=== PATIENT | male | born 1970 ===

== ENCOUNTER 2017-02-20 08:37 | Observation (INO) | payer OTHER ==
--- NOTE | 2017-02-20 08:47 | C.PDOC ---
History Of Present Illness Patient is a 46 y/o M found sleeping near [facility]. Per EMS, patient admitted to heroin and alcohol use. On arrival to ED he is lethargic and unable to provide additional history. Time Seen by Provider: 02/20/17 08:44 Chief Complaint (Nursing): Substance Abuse Past Medical History Vital Signs: Last Vital Signs Temp 98.2 F 02/20/17 15:31 Pulse 88 02/20/17 15:31 Resp 16 02/20/17 15:31 BP 110/70 02/20/17 15:31 Pulse Ox 97 02/20/17 15:31 - Medical History PMH: Depression Denies: HIV, HTN, Chronic Kidney Disease, Seizures, Sexually Transmitted Disease - [facility] Procedures MEDICATION MANAGEMENT (12/13/15) Family History: States: Unknown Family Hx - Social History Hx Tobacco Use: Yes Hx Alcohol Use: Yes Hx Substance Use: Yes (Snorts Heroin) - Immunization History Hx Tetanus Toxoid Vaccination: No Hx Influenza Vaccination: No Hx Pneumococcal Vaccination: No Review Of Systems Review Of Systems: ROS cannot be obtained secondary to pt's inabilty to answer questions. Physical Exam - Physical Exam Appears: No Acute Distress, Unkempt Skin: Normal Color Head: Atraumatic, Normacephalic Eye(s): bilateral: PERRL (sluggish response), EOMI Nose: Normal Neck: Normal ROM Cardiovascular: Rhythm Regular Respiratory: Normal Breath Sounds, No Wheezing, No Plerual Rub Gastrointestinal/Abdominal: Soft, No Tenderness, No Mass, No Distention Extremity: Normal ROM (x4) Neurological/Psych: Other (lethargic, non-verbal) ED Course And Treatment - Laboratory Results Result Diagrams: 02/20/17 09:32 02/20/17 09:32 Medical Decision Making Medical Decision Making: Patient is lethargic and unable to provide additional hx. No signs of trauma but found down ED OBSERVATION Discharge: Yes Date of observation admission: 02/20/17 Time of observation admission: 09:18 - Observation admission statement Patient is being placed in observation because:: altered - Goals of Observation Goals of observation are:: monitoring for sobriety - Progress Note Progress Note: 02/20/17 10:00 FS:84. 02/20/17 12:[address] head shows posterior scalp hematoma and C-spine negative for acute injury. Will continue to monitor 02/20/17 14:00 Resting comfortably 02/20/17 16:40 Patient is now AAox3 and ambulating around the ED. He is requesting methadone for chronic pain. Patient instructed to follow-up with PMD. 02/20/17 18:38 Patient is AAox3. He put on his clothes in ED. He is tolerating po and AAOx3 and ambulating around the ED without issue. Will dc Disposition - Disposition Disposition Time: 16:41 Condition: GOOD - Clinical Impression Clinical Impression: Alcohol intoxication, Drug abuse
[2017-02-20 09:38] LABS: BASO # 0.1 K/uL (0.0-0.2); BASO % 0.8 % (0.0-2.0); EOS # 0.1 K/uL (0.0-0.7); EOS % 1.3 % (0.0-4.0); HEMATOCRIT 39.6 % (35.0-51.0); LYMPH # 1.4 K/uL (1.0-4.3); LYMPH % 23.3 % (20.0-40.0); MEAN CELL VOLUME 94.6 fL (80.0-94.0); MEAN CORPUSCULAR HEMOGLOBIN 31.9 pg (27.0-31.0); MEAN CORPUSCULAR HGB CONC 33.8 g/dL (33.0-37.0); MEAN PLATELET VOLUME 7.6 fL (7.2-11.7); MONO # 0.3 K/uL (0.0-0.8); MONO % 4.3 % (0.0-10.0); NRBC % 0.3 % (0.0-2.0); RED CELL DISTRIBUTION WIDTH 14.5 % (11.5-14.5); WHITE BLOOD COUNT 6.2 K/uL (4.8-10.8)
[2017-02-20 09:43] LABS: CHLORIDE 98 mmol/L (98-107); SODIUM 142 mmol/L (132-148)
[2017-02-20 09:45] LABS: GFR AFRICAN-AMERICAN > 60; POTASSIUM 4.3 mmol/L (3.6-5.2)
[2017-02-20 09:46] LABS: ALB/GLOB RATIO 1.1 (1.0-2.1); ALKALINE PHOSPHATASE 152 U/L (38-126); ALT/SGPT 72 U/L (21-72); AST/SGOT 154 U/L (17-59); BILIRUBIN,TOTAL 0.7 mg/dL (0.2-1.3); BLOOD UREA NITROGEN 8 mg/dL (9-20); CARBON DIOXIDE 24 mmol/L (22-30); GLUCOSE,RANDOM 84 mg/dL (75-110); TOTAL PROTEIN 7.5 g/dL (6.3-8.3)
[2017-02-20 09:47] LABS: CALCIUM 7.9 mg/dl (8.6-10.4)
[2017-02-20 09:57] LABS: INR 1.1
[2017-02-20 10:01] LABS: ALCOHOL SERUM 419 mg/dl (0-10)
[2017-02-20 10:06] LABS: RBC URINE < 1 /hpf (0-3); URINE BILIRUBIN NEGATIVE (NEGATIVE); URINE BLOOD NEGATIVE (NEGATIVE); URINE COLOR Straw (YELLOW); URINE GLUCOSE (UA) NORMAL (Normal); URINE KETONE TRACE mg/dL (NEGATIVE); URINE LEUKOCYTE ESTERASE NEG Leu/uL (Negative); URINE PROTEIN NEGATIVE (NEGATIVE); URINE UROBILINOGEN NORMAL mg/dL (0.2-1.0); WBC URINE < 1 /hpf (0-5)
--- NOTE | 2017-02-20 10:11 | CT ---
CT head without IV contrast History: Head injury Technique: Axial computed tomography images were obtained through the head/brain without intravenous contrast. This CT exam was performed using 1 or more of the falling dose reduction techniques: Automated exposure control, adjustment of the MAA and/or kV according to patient size, and/or use of iterative reconstruction technique. Radiation dose: Total exam DLP = 909.80 MGy-cm. Comparison: None available. Findings: Mild streak artifact obscures evaluation of the skullbase. The ventricles, sulci, and cisterns appear within normal limits. Intracranial atherosclerotic calcifications. No intracranial masses or hemorrhages are identified. The nagy-white matter differentiation appears intact. Please note that MRI with diffusion imaging is more sensitive in the detection of acute ischemic event. Visualized paranasal sinuses, mastoid air cells, and both orbits appear unremarkable. Soft tissue swelling/small scalp hematoma left posterior scalp. Impression: No acute intracranial pathology identified. Soft tissue swelling/small scalp hematoma left posterior scalp.
--- NOTE | 2017-02-20 10:31 | CT ---
CT cervical spine without IV contrast Indication: Altered Comparison: None available Technique: Axial computed tomography images were obtained of the cervical spine without the use of intravenous contrast. Coronal and sagittal reformatted images were created and reviewed. This CT exam was performed using 1 or more of the falling dose reduction techniques: Automated exposure control, adjustment of the MAA and/or kV according to patient size, and/or use of iterative reconstruction technique. Radiation dose: Total exam DLP = 586.80 mGy-cm. Findings: Straightening of the normal cervical lordosis may be related to muscle spasm or positioning. There is no evidence of acute fracture or subluxation. There is preserved alignment, vertebral body height, intervertebral disc spaces. The prevertebral soft tissues and spinolaminar lines appear intact. The lateral masses are preserved. The dens tip is intact. There is proper alignment of the lateral masses of C1 with the C2 vertebral body. Included portions of the thyroid gland appear unremarkable. Included portions of lung apices appear clear. Impression: Straightening of the normal cervical lordosis may be related to muscle spasm or positioning. No evidence of acute fracture or subluxation.
[2017-02-20 15:32] VITALS: RESP 16; O2SAT 97
[2017-02-20 18:52] VITALS: BP 109/71; PULSE 78; TEMP 97.6
== END 2017-02-20 16:41 | disposition home or self-care (01) ==
LOC: C.ER 08:37 → C.9OBSV 09:18
PROVIDERS: ADMIT Emergency Medicine; ATTEND Emergency Medicine
DX: F11.10 Opioid abuse, uncomplicated (principal); F10.120 Alcohol abuse with intoxication, uncomplicated; Y90.8 Blood alcohol level of 240 mg/100 ml or more; F17.210 Nicotine dependence, cigarettes, uncomplicated; F32.9 Major depressive disorder, single episode, unspecified
CPT/HCPCS: 36415; 70450; 72125; 80053; 80320; 80324; 80345; 80346; 80349; 80353; 80358; 80361; 81001; 82948; 83992; 85025; 85610; 85730; 86850; 86900; 99285; G0378

== ENCOUNTER 2017-03-04 23:28 | Emergency (ER) | payer OTHER ==
[2017-03-04 23:45] VITALS: BMI 28.1
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
[2017-03-05 02:14] VITALS: RESP 18
[2017-03-05 06:42] VITALS: O2SAT 96
[2017-03-05 08:29] VITALS: BP 140/86; PULSE 102; TEMP 98.5
== END 2017-03-05 08:29 | disposition home or self-care (01) ==
LOC: C.ER 23:28
DX: F10.120 Alcohol abuse with intoxication, uncomplicated (principal); Y90.9 Presence of alcohol in blood, level not specified; S02.2XXD Fracture of nasal bones, subsequent encounter for fracture with routine healing; Y09 Assault by unspecified means

== ENCOUNTER 2017-03-05 23:49 | Observation (INO) | payer OTHER ==
[2017-03-05 23:49] VITALS: BMI 25.4
[2017-03-06] MEDS ORDERED: Sodium Chloride 0.9% 1,000 ML IV ONE (00:32)
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
[2017-03-06 00:51] LABS: BASO % 0.8 % (0.0-2.0); EOS % 0.5 % (0.0-4.0); HEMATOCRIT 36.3 % (35.0-51.0); LYMPH # 1.5 K/uL (1.0-4.3); MEAN CELL VOLUME 93.6 fL (80.0-94.0); MEAN CORPUSCULAR HEMOGLOBIN 31.2 pg (27.0-31.0); MEAN CORPUSCULAR HGB CONC 33.4 g/dL (33.0-37.0); MONO # 0.4 K/uL (0.0-0.8); MONO % 6.5 % (0.0-10.0); RED CELL DISTRIBUTION WIDTH 15.6 % (11.5-14.5); WHITE BLOOD COUNT 5.5 K/uL (4.8-10.8)
[2017-03-06 01:03] LABS: ALB/GLOB RATIO 1.2 (1.0-2.1); ALKALINE PHOSPHATASE 150 U/L (38-126); ALT/SGPT 93 U/L (21-72); AST/SGOT 135 U/L (17-59); BILIRUBIN,TOTAL 0.6 mg/dL (0.2-1.3); BLOOD UREA NITROGEN 8 mg/dL (9-20); CALCIUM 8.5 mg/dl (8.6-10.4); CARBON DIOXIDE 22 mmol/L (22-30); CHLORIDE 104 mmol/L (98-107); GFR AFRICAN-AMERICAN > 60; GLUCOSE,RANDOM 103 mg/dL (75-110); POTASSIUM 3.4 mmol/L (3.6-5.2); SODIUM 147 mmol/L (132-148); TOTAL PROTEIN 7.4 g/dL (6.3-8.3)
[2017-03-06 01:15] LABS: URINE BILIRUBIN NEGATIVE (NEGATIVE); URINE BLOOD NEGATIVE (NEGATIVE); URINE COLOR Yellow (YELLOW); URINE GLUCOSE (UA) NORMAL (Normal); URINE KETONE NEGATIVE (NEGATIVE); URINE LEUKOCYTE ESTERASE NEG Leu/uL (Negative); URINE PROTEIN NEGATIVE (NEGATIVE); URINE UROBILINOGEN NORMAL mg/dL (0.2-1.0); WBC URINE 1 /hpf (0-5)
[2017-03-06 01:17] LABS: ALCOHOL SERUM 498 mg/dl (0-10)
[2017-03-06] MEDS ORDERED: Multivitamin (MVI) 10 ML, Thiamine 100 MG, Folic Acid 1 MG in Sodium Chloride 0.9% 1,00... IV ONE ×2 (01:18→06:20)
[2017-03-06 11:56] VITALS: RESP 18
[2017-03-06 12:38] VITALS: BP 130/72; PULSE 91; TEMP 98.9; O2SAT 98
== END 2017-03-06 12:16 | disposition home or self-care (01) ==
LOC: C.ER 23:49 → C.9OBSV 03-06 00:55 → MERGE 03-06 00:55
PROVIDERS: ADMIT Emergency Medicine; ATTEND Emergency Medicine
DX: F10.120 Alcohol abuse with intoxication, uncomplicated (principal); J45.909 Unspecified asthma, uncomplicated; F11.10 Opioid abuse, uncomplicated; Y90.8 Blood alcohol level of 240 mg/100 ml or more; F19.10 Other psychoactive substance abuse, uncomplicated
CPT/HCPCS: 80053; 81001; 82948; 85025; 99285; G0378; G0480

== ENCOUNTER 2017-03-10 01:59 | Observation (INO) | payer OTHER ==
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
[2017-03-10 10:50] VITALS: BP 128/80; PULSE 90; RESP 18; TEMP 98.4; O2SAT 96
== END 2017-03-10 10:46 | disposition home or self-care (01) ==
LOC: C.ER 01:59 → MERGE 04:28 → C.9OBSV 04:28
PROVIDERS: ADMIT Emergency Medicine; ATTEND Emergency Medicine
DX: F10.129 Alcohol abuse with intoxication, unspecified (principal); J43.9 Emphysema, unspecified; S22.31XD Fracture of one rib, right side, subsequent encounter for fracture with routine healing
CPT/HCPCS: 71101; 82948; 99285; G0378

== ENCOUNTER 2017-03-18 16:55 | Observation (INO) | payer OTHER ==
[2017-03-18 16:56] VITALS: BMI 28.1
--- NOTE | 2017-03-18 18:12 | RAD ---
HISTORY: Intoxicated COMPARISON: Chest x-ray performed 06/30/15 TECHNIQUE: Chest, one view. FINDINGS: Examination limited by habitus, hypoinflation, and patient obliquity. LUNGS: No focal consolidation. Please note that chest x-ray has limited sensitivity for the detection of pulmonary masses. PLEURA: No significant pleural effusion identified. No definite pneumothorax . CARDIOVASCULAR: Borderline cardiomegaly, likely exaggerated by hypoinflation. OSSEOUS STRUCTURES: No acute osseous abnormality identified. VISUALIZED UPPER ABDOMEN: Unremarkable. OTHER FINDINGS: None. IMPRESSION: Borderline cardiomegaly, likely exaggerated by hypoinflation.
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
[2017-03-19 02:24] VITALS: RESP 20; TEMP 97.5
[2017-03-19 05:13] VITALS: BP 140/90; PULSE 102; O2SAT 96
== END 2017-03-19 05:15 | disposition home or self-care (01) ==
LOC: C.ER 16:55 → C.9OBSV 19:38
PROVIDERS: ADMIT Emergency Medicine; ATTEND Emergency Medicine
DX: F10.129 Alcohol abuse with intoxication, unspecified (principal); S02.2XXA Fracture of nasal bones, initial encounter for closed fracture; X58.XXXA Exposure to other specified factors, initial encounter; Y92.9 Unspecified place or not applicable

== ENCOUNTER 2017-04-16 21:36 | Observation (INO) | payer OTHER ==
[2017-04-16 21:36] VITALS: BMI 28.1
[2017-04-16 21:47] VITALS: RESP 20; O2SAT 97
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
[2017-04-16 23:19] LABS: BASO % 0.7 % (0.0-2.0); EOS # 0.1 K/uL (0.0-0.7); EOS % 2.5 % (0.0-4.0); HEMATOCRIT 35.2 % (35.0-51.0); LYMPH # 1.6 K/uL (1.0-4.3); MEAN CELL VOLUME 96.6 fL (80.0-94.0); MEAN CORPUSCULAR HGB CONC 34.2 g/dL (33.0-37.0); MEAN PLATELET VOLUME 7.4 fL (7.2-11.7); MONO # 0.2 K/uL (0.0-0.8); MONO % 4.8 % (0.0-10.0); NRBC % 0.1 % (0.0-2.0); RED CELL DISTRIBUTION WIDTH 16.6 % (11.5-14.5)
[2017-04-16 23:29] LABS: CHLORIDE 105 mmol/L (98-107)
[2017-04-16 23:30] LABS: POTASSIUM 3.8 mmol/L (3.6-5.2); SODIUM 145 mmol/L (132-148)
[2017-04-16 23:32] LABS: ALB/GLOB RATIO 1.3 (1.0-2.1); ALKALINE PHOSPHATASE 168 U/L (38-126); ALT/SGPT 59 U/L (21-72); AST/SGOT 71 U/L (17-59); BILIRUBIN,TOTAL 0.3 mg/dL (0.2-1.3); BLOOD UREA NITROGEN 11 mg/dL (9-20); CARBON DIOXIDE 20 mmol/L (22-30); GFR AFRICAN-AMERICAN > 60; GLUCOSE,RANDOM 94 mg/dL (75-110); TOTAL PROTEIN 7.1 g/dL (6.3-8.3)
[2017-04-16 23:33] LABS: CALCIUM 8.1 mg/dl (8.6-10.4); MAGNESIUM 1.8 mg/dL (1.6-2.3)
[2017-04-16 23:48] LABS: ALCOHOL SERUM 340 mg/dl (0-10)
[2017-04-17 06:01] VITALS: BP 128/74; PULSE 76; TEMP 98
--- NOTE | 2017-04-17 07:31 | RAD ---
HISTORY: SOB COMPARISON: Chest x-ray performed 03/18/17 TECHNIQUE: Chest, one view. FINDINGS: Examination limited by habitus and hypoinflation. LUNGS: No focal consolidation. Please note that chest x-ray has limited sensitivity for the detection of pulmonary masses. PLEURA: No significant pleural effusion identified. No definite pneumothorax . CARDIOVASCULAR: Borderline cardiomegaly, likely exaggerated by hypoinflation. OSSEOUS STRUCTURES: Degenerative changes. VISUALIZED UPPER ABDOMEN: Unremarkable. OTHER FINDINGS: None. IMPRESSION: No focal consolidation, significant pleural effusion, or definite pneumothorax identified.
== END 2017-04-17 05:12 | disposition home or self-care (01) ==
LOC: C.ER 21:36 → C.9OBSV 04-17 00:17
PROVIDERS: ADMIT Emergency Medicine; ATTEND Emergency Medicine
DX: F10.220 Alcohol dependence with intoxication, uncomplicated (principal); J45.909 Unspecified asthma, uncomplicated; Z87.891 Personal history of nicotine dependence; Y90.8 Blood alcohol level of 240 mg/100 ml or more
CPT/HCPCS: 71010; 80053; 80320; 83735; 85025; G0378

== ENCOUNTER 2017-04-23 22:08 | Observation (INO) | payer OTHER ==
[2017-04-23 22:08] VITALS: BMI 28.1
[2017-04-23] MEDS ORDERED: Sodium Chloride 0.9% 1,000 ML IV ONE (23:22)
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
[2017-04-23] MEDS ORDERED: Sodium Chloride 0.9% 1,000 ML ONE (23:33)
[2017-04-24 00:21] LABS: BASO # 0.1 K/uL (0.0-0.2); BASO % 0.7 % (0.0-2.0); EOS % 0.1 % (0.0-4.0); HEMATOCRIT 37.8 % (35.0-51.0); LYMPH # 1.5 K/uL (1.0-4.3); LYMPH % 18.1 % (20.0-40.0); MEAN CELL VOLUME 96.3 fL (80.0-94.0); MEAN CORPUSCULAR HEMOGLOBIN 32.5 pg (27.0-31.0); MEAN CORPUSCULAR HGB CONC 33.7 g/dL (33.0-37.0); MEAN PLATELET VOLUME 7.4 fL (7.2-11.7); MONO # 0.3 K/uL (0.0-0.8); MONO % 3.5 % (0.0-10.0); NRBC % 0.1 % (0.0-2.0); RED CELL DISTRIBUTION WIDTH 16.3 % (11.5-14.5); WHITE BLOOD COUNT 8.5 K/uL (4.8-10.8)
[2017-04-24 00:25] LABS: CHLORIDE 101 mmol/L (98-107); POTASSIUM 3.9 mmol/L (3.6-5.2); SODIUM 139 mmol/L (132-148)
[2017-04-24 00:27] LABS: GFR AFRICAN-AMERICAN > 60
[2017-04-24 00:28] LABS: ALB/GLOB RATIO 1.2 (1.0-2.1); ALKALINE PHOSPHATASE 172 U/L (38-126); ALT/SGPT 60 U/L (21-72); AST/SGOT 91 U/L (17-59); BILIRUBIN,TOTAL 0.6 mg/dL (0.2-1.3); BLOOD UREA NITROGEN 11 mg/dL (9-20); CALCIUM 7.8 mg/dl (8.6-10.4); CARBON DIOXIDE 20 mmol/L (22-30); GLUCOSE,RANDOM 94 mg/dL (75-110)
[2017-04-24 00:43] LABS: ALCOHOL SERUM 350 mg/dl (0-10)
[2017-04-24 00:50] LABS: URINE BILIRUBIN NEGATIVE (NEGATIVE); URINE BLOOD NEGATIVE (NEGATIVE); URINE COLOR Yellow (YELLOW); URINE GLUCOSE (UA) NORMAL (Normal); URINE KETONE TRACE mg/dL (NEGATIVE); URINE LEUKOCYTE ESTERASE NEG Leu/uL (Negative); URINE PROTEIN NEGATIVE (NEGATIVE); URINE UROBILINOGEN NORMAL mg/dL (0.2-1.0); WBC URINE < 1 /hpf (0-5)
[2017-04-24 02:53] VITALS: RESP 18
[2017-04-24 04:33] VITALS: O2SAT 100
[2017-04-24 05:45] VITALS: BP 146/89; PULSE 59; TEMP 98.1
== END 2017-04-24 06:05 | disposition home or self-care (01) ==
LOC: C.ER 22:08 → INTOOBSV 04-24 00:36 → C.9OBSV 04-24 00:36
PROVIDERS: ADMIT Emergency Medicine; ATTEND Emergency Medicine
DX: F10.120 Alcohol abuse with intoxication, uncomplicated (principal); F11.10 Opioid abuse, uncomplicated; Y90.8 Blood alcohol level of 240 mg/100 ml or more; F17.210 Nicotine dependence, cigarettes, uncomplicated
CPT/HCPCS: 80053; 80320; 80324; 80345; 80346; 80349; 80353; 80358; 80361; 81001; 83992; 85025; 86850; 86900; 96360; G0378; J7040

== ENCOUNTER 2017-09-15 20:34 | Emergency (ER) | payer OTHER ==
[2017-09-15 20:34] VITALS: BMI 28.1
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
[2017-09-16 07:38] VITALS: BP 127/80; PULSE 84; RESP 20; TEMP 98; O2SAT 100
== END 2017-09-16 06:30 | disposition home or self-care (01) ==
LOC: C.ER 20:34
DX: F10.129 Alcohol abuse with intoxication, unspecified (principal); Y90.9 Presence of alcohol in blood, level not specified

== ENCOUNTER 2017-09-19 10:51 | Emergency (ER) | payer OTHER ==
[2017-09-19 10:51] VITALS: BMI 28.1
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
[2017-09-19 13:44] VITALS: BP 116/81; PULSE 88; RESP 18; TEMP 98.1
[2017-09-19 17:06] VITALS: O2SAT 96
== END 2017-09-19 18:17 | disposition home or self-care (01) ==
LOC: C.ER 10:51
DX: F10.129 Alcohol abuse with intoxication, unspecified (principal); Y90.9 Presence of alcohol in blood, level not specified

== ENCOUNTER 2017-12-23 13:13 | Emergency (ER) | payer OTHER ==
[2017-12-23 13:13] VITALS: BMI 28.1
[2017-12-23 13:39] VITALS: RESP 18; O2SAT 95
[2017-12-23 19:24] VITALS: BP 121/69; PULSE 81; TEMP 98
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
== END 2017-12-23 19:27 | disposition left against medical advice (07) ==
LOC: C.ER 13:13
DX: F10.10 Alcohol abuse, uncomplicated (principal); F11.10 Opioid abuse, uncomplicated; Z72.0 Tobacco use

== ENCOUNTER 2017-12-27 11:52 | Emergency (ER) | payer OTHER ==
[2017-12-27 11:54] VITALS: BMI 28.1
[2017-12-27 12:19] VITALS: O2SAT 96
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
[2017-12-27 13:11] VITALS: BP 107/71; PULSE 86; RESP 16; TEMP 97.6
== END 2017-12-27 13:11 | disposition home or self-care (01) ==
LOC: C.ER 11:52
DX: F10.129 Alcohol abuse with intoxication, unspecified (principal); F19.10 Other psychoactive substance abuse, uncomplicated; Y90.9 Presence of alcohol in blood, level not specified

== ENCOUNTER 2017-12-27 18:03 | Inpatient (IN) | payer OTHER ==
[2017-12-27 18:04] VITALS: BMI 28.1
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
[2017-12-28 00:35] LABS: BASO % 0.5 % (0.0-2.0); EOS % 0.2 % (0.0-4.0); HEMOGLOBIN 13.8 g/dL (12.0-18.0); LYMPH # 1.3 K/uL (1.0-4.3); LYMPH % 22.1 % (20.0-40.0); MEAN CELL VOLUME 94.9 fL (80.0-94.0); MEAN CORPUSCULAR HEMOGLOBIN 32.8 pg (27.0-31.0); MEAN CORPUSCULAR HGB CONC 34.6 g/dL (33.0-37.0); MEAN PLATELET VOLUME 7.6 fL (7.2-11.7); MONO # 0.4 K/uL (0.0-0.8); MONO % 6.1 % (0.0-10.0); NEUT # 4.2 K/uL (1.8-7.0); NEUT % 71.1 % (50.0-75.0); NRBC % 0.1 % (0.0-2.0); RBC 4.2 Mil/uL (4.40-5.90); RED CELL DISTRIBUTION WIDTH 14.4 % (11.5-14.5); WHITE BLOOD COUNT 5.9 K/uL (4.8-10.8)
[2017-12-28 00:47] LABS: ALB/GLOB RATIO 1.2 (1.0-2.1); ALBUMIN 4.5 g/dL (3.5-5.0); ALT/SGPT 107 U/L (21-72); AST/SGOT 190 U/L (17-59); BLOOD UREA NITROGEN 10 mg/dL (9-20); CALCIUM 8.8 mg/dl (8.6-10.4); GFR AFRICAN-AMERICAN > 60; GFR NON-AFRICAN AMERICAN > 60
--- NOTE | 2017-12-28 02:23 | PCM.BM ---
Treatment Plan Problems - Problems identified on initial assessmt Ineffective Coping Skills Date Initiated: 12/28/17 Time Initiated: 02:22 Assessment reference: NA Status: Active Treatment assets and liabiliti Patient Assests: ADL independent Patient Liabilities: live alone, financial problems, poor support system, substance abuse, medical problems, other - Milieu Protocol Maintain good personal hygiene: daily Encourage regular showers, daily Remind patient to perform daily oral care, other Assist patient to perform ADL's Maintain personal safety: every shift Educate patient to report safety concerns to staff, every shift Monitor environment for contraband/sharps Medication safety: Monitor for expected outcome, potential side effects: every shift, Assess barriers to learning: every shift, Assess readiness for medication education: every shift
[2017-12-28 03:04] LABS: SQUAMOUS EPITHIAL < 1 /hpf (0-5); URINE BILIRUBIN NEGATIVE (NEGATIVE); URINE BLOOD NEGATIVE (NEGATIVE); URINE CLARITY Clear (Clear); URINE COLOR Amber (YELLOW); URINE GLUCOSE (UA) NORMAL (Normal); URINE LEUKOCYTE ESTERASE NEG Leu/uL (Negative); URINE PROTEIN 1+ mg/dL (NEGATIVE)
[2017-12-28 03:14] LABS: BARBITURATES, UR NEGATIVE (NEGATIVE); BENZODIAZEPINES, UR NEGATIVE (NEGATIVE); OPIATES, UR NEGATIVE (NEGATIVE); PHENCYCLIDINE, UR NEGATIVE (NEGATIVE)
--- NOTE | 2017-12-28 09:58 | PCM.PSYCH ---
Initial Psychiatric Evaluation - Initial Psychiatric Evaluation Type of Admission: Voluntary Legal Status: Capacity Chief Complaint (in patient's own words): "I see lights and shadows" History of Present Illness and Precipitating Events: Pt. is a 47 y/o , employed male of [place] descent who was bib to ED via ambulance. Pt. reports that he wants to do detox because he wants to stop drinking and using heroin. Pt. reports two weeks ago, one of his friends of a drug overdose. Pt. reports that he was [place] because he was given medication to reverse the OD. Drinks 1lt to 1 gallon of vodka daily, withdrawal symptoms. He reported alcohol withdrawal symptoms including tremors, headache, nausea, hot and cold sweats, VH. He denied AH, paranoid delusion. He denied seizures 2/2 to alcohol withdrawal symptoms. CAGE questionnaire was positive. Heroin 20 bags intra nasally daily, started at the age of 16. He currently denied opioid withdrawal symptoms. Pt. reports that his left him due to drug abuse. Pt. reports that this is the first time he is seeking drug detox. Pt. reports that he spends a lot of his salary on drugs. 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 Pt. reports that he is living by himself in a rented room. Pt. reports that his sister lives nearby and she does not bother with client due to drug abuse. Pt. has a 5 year old that is living in [place] with his mother. Pt. denies any S/H ideation or intent. Pt. also denies any A/V/T hallucinations. Pt. does admit to nightmares when he sleeps. Pt. denies any changes in his appetite. Pt. reports poor sleep habits due to drug abuse. Last admission in psych unit was in 2016 Current Medications: Active Medications Generic Name Dose Route Start Last Admin Trade Name Freq PRN Reason Stop Dose Admin Clonidine HCl 0.1 mg 12/28/17 03:19 Catapres PO Q4H PRN Symptoms of alcohol withdrawl Folic Acid 1 mg 12/28/17 10:00 Folic Acid PO DAILY [facility] Hydroxyzine HCl 25 mg 12/28/17 03:21 Atarax PO Q6H PRN Anxiety Ibuprofen 600 mg 12/28/17 04:15 Motrin Tab PO TID PRN Pain, moderate (4-7) Loperamide HCl 2 mg 12/28/17 04:15 12/28/17 07:45 Imodium PO 2 mg QID PRN Administration Diarrhea Lorazepam 2 mg 12/28/17 03:30 12/28/17 07:47 Ativan PO 01/02/18 03:29 2 mg Q4 [facility] Administration Taper Multivitamins 1 tab 12/28/17 10:00 Hexavitamin PO DAILY [facility] Ondansetron HCl 4 mg 12/28/17 03:42 12/28/17 03:51 Zofran Odt PO 4 mg Q8H PRN Administration Nausea/Vomiting Thiamine HCl 100 mg 12/28/17 10:00 Vitamin B1 Tab PO DAILY [facility] Trazodone HCl 50 mg 12/28/17 03:19 Desyrel PO HS PRN Insomnia Past Psychiatric History - Past Psychiatric History Previous Treatment History: Inpatient At [facility]: [facility] History of Abuse: denied History of ETOH/Drug Use: please see HPI History of Family Illness: denied Pertinent Medical Hx (Current Medical&Sleep Prob, Allergies): Allergies Allergy/AdvReac Type Severity Reaction Status Date / Time No Known Allergies Allergy Verified 12/27/17 18:11 No Known Home Med 10/23/16 Unobtainable 07/13/17 Review of Systems - Review of Systems All systems: reviewed and no additional remarkable complaints except (please see HPI) - Constitutional Constitutional: Chills, Sweats - EENT Eyes: Discharge Ears: UNREMARKABLE Nose/Mouth/Throat: Nasal Congestion, Nasal Discharge, UNREMARKABLE - Cardiovascular Cardiovascular: Palpitations - Respiratory Respiratory: UNREMARKABLE - Gastrointestinal Gastrointestinal: Cramping - Genitourinary Genitourinary: UNREMARKABLE - Reproductive: Male Reproductive:Male: UNREMARKABLE - Integumentary Integumentary: UNREMARKABLE - Psychiatric Psychiatric: As Per HPI, Depression, Visual Hallucinations - Endocrine Endocrine: UNREMARKABLE - Hematologic/Lymphatic Hematologic: UNREMARKABLE Mental Status Examination - Personal Presentation Personal Presentation: Looks older than stated age, Dressed appropriate to season, Impairment in gait Additional comments: Tremulous - Affect Affect: Constricted, Depressed - Motor Activity Motor Activity: Psychomotor Agitation - Reliability in Providing Information Reliability in Providing Information: Fair - Speech Speech: Organized - Mood Mood: Depressed, Anxious - Formal Thought Process Formal Thought Process: Hallucinations - Hallucinations/Delusions Hallucinations: Visual - Obsessions/Compulsions Obsessions: None Compulsions: None - Cognitive Functions Orientation: Person, Place, Situation, Time Sensorium: Alert, Lethargic Attention/Concentration: Attentive Abstract Thinking: [place] Estimate of Intelligence: Average Judgement: Intact, as evidence by: Good judgement, Intact, as evidence by: Insight regarding need for hospitalization Memory: Recent intact, as evidence by: Ability to recall events of the day - Risk Risk: Withdrawal, Falls - Strength & Assets Inventory Strength & Assets Inventory: Employment history, Cooperative - Limitations Limitations: Other (chronic substance abuse history) DSM 5 DX - DSM 5 DSM 5 Diagnosis: Alcohol use disorder, severe, dependence Alcohol withdrawal Opioid use disorder, severe, dependence Opioid withdrawal Unspecified depressive disorder - Recommended/Plan of Treatment Treatment Recommendations and Plan of Treatment: Librium detox Methadone detox Haldol prn for hallucinations Gabapentin for augmentation As needed meds and vitamins Attend groups and activities CT for abstinence and CBT for relapse prevention Support and psychoeducation Consider and encourage MAT Refer to after care 33 min Projected ELOS: 5-6 days Prognosis: good with med compliance - Smoking Cessation Smoking Cessation Initiated: Yes
[2017-12-28] MEDS: Multiple Vitamins Tab PO SCH (10:24)
--- NOTE | 2017-12-28 12:22 | CP.PCM.CON ---
History of Present Illness - History of Present Illness History of Present Illness: Medicine consult note Patient is a 47 year old male with history of alcohol and heroin use who was initially sent to ER via ambulance after being found intoxicated in public. Patient was brought to detox unit overnight. This morning, patient stated that when he closed his eyes he was seeing 3D figures, crosses and trees. He also stated he was seeing colors coming down from the ceiling and hanging in the air. Medicine team was consulted for concerns for DTs. Patient reports drinking 1 pint of vodka every morning to prevent shaking and drinking 1L vodka in the evenings. He also reports sniffing 10 bags of heroin daily. Patient reports his drinking increased over the past 6 years. He reports not eating well either. He reports abdominal pain in epigastric region, nausea, but no vomiting. 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 FamHx: diabetes in cousin Social Hx: alcohol use as described above, heroin use as described above Review of Systems - Review of Systems Systems not reviewed;Unavailable: Altered Mental Status - Constitutional Constitutional: Headache, Weight Loss (poor appetite) - EENT Ears: absent: Dizziness - Cardiovascular Cardiovascular: absent: Chest Pain - Gastrointestinal Gastrointestinal: Abdominal Pain (epigastric), Nausea - Genitourinary Genitourinary: absent: Dysuria Past Patient History - Infectious Disease Hx of Infectious Diseases: None - Past Medical History & Family History Past Medical History?: Yes - Past Social History Smoking Status: Heavy Smoker > 10 Cigarettes Daily - CARDIAC Hx Cardiac Disorders: No Hx Hypertension: No - PULMONARY Hx Respiratory Disorders: Yes Hx Asthma: Yes Hx Tuberculosis: No - NEUROLOGICAL Hx Neurological Disorder: No HX Cerebrovascular Accident: No Hx Seizures: No - HEENT Hx HEENT Problems: No - RENAL Hx Chronic Kidney Disease: No - ENDOCRINE/METABOLIC Hx Endocrine Disorders: Yes Hx Diabetes Mellitus Type 2: Yes - HEMATOLOGICAL/ONCOLOGICAL Hx Blood Disorders: No Hx Cancer: No Hx Human Immunodeficiency Virus (HIV): No - INTEGUMENTARY Hx Dermatological Problems: No - MUSCULOSKELETAL/RHEUMATOLOGICAL Hx Musculoskeletal Disorders: No Hx Falls: No (Denied) - GASTROINTESTINAL Hx Gastrointestinal Disorders: No - GENITOURINARY/GYNECOLOGICAL Hx Genitourinary Disorders: No Hx Sexually Transmitted Disorders: No - PSYCHIATRIC Hx Substance Use: Yes (ETOH, Heroin) - SURGICAL HISTORY Hx Surgeries: Yes Other/Comment: abdominal surgery 10 years ago. old scar on RUQ abdomen - ANESTHESIA Hx Anesthesia: Yes Hx Anesthesia Reactions: No Hx Malignant Hyperthermia: No Has any member of the family had a problem w/ anesthesia?: No Meds Allergies/Adverse Reactions: Allergies Allergy/AdvReac Type Severity Reaction Status Date / Time No Known Allergies Allergy Verified 12/27/17 18:11 - Medications Medications: Current Medications Benztropine Mesylate (Cogentin) 2 mg PO Q6H PRN PRN Reason: EPS Clonidine HCl (Catapres) 0.1 mg PO Q4H PRN PRN Reason: Symptoms of alcohol withdrawl Folic Acid (Folic Acid) 1 mg PO DAILY [facility] Last Admin: 12/28/17 10:20 Dose: 1 mg Haloperidol (Haldol) 0.5 mg PO BID [facility] Last Admin: 12/28/17 11:02 Dose: 0.5 mg Hydroxyzine HCl (Atarax) 25 mg PO Q6H PRN PRN Reason: Anxiety Folic Acid 1 mg/ Thiamine HCl 100 mg/ Multivitamins/Vitamin C 10 ml/ Dextrose 1 ,011.2 mls @ 100 mls/hr IV .Q10H7M [facility] Stop: 12/28/17 22:36 Ibuprofen (Motrin Tab) 600 mg PO TID PRN PRN Reason: Pain, moderate (4-7) Loperamide HCl (Imodium) 2 mg PO QID PRN PRN Reason: Diarrhea Last Admin: 12/28/17 07:45 Dose: 2 mg Lorazepam (Ativan) 2 mg PO Q4 [place] PRN Reason: Taper Stop: 01/02/18 03:29 Last Admin: 12/28/17 11:47 Dose: 2 mg Lorazepam (Ativan) 1 mg PO Q4H PRN PRN Reason: Symptoms of alcohol withdrawl Last Admin: 12/28/17 10:21 Dose: 1 mg Lorazepam (Ativan) 1 mg IVP Q4H [facility] Multivitamins (Hexavitamin) 1 tab PO DAILY [facility] Last Admin: 12/28/17 10:24 Dose: 1 tab Ondansetron HCl (Zofran Odt) 4 mg PO Q8H PRN PRN Reason: Nausea/Vomiting Last Admin: 12/28/17 03:51 Dose: 4 mg Pantoprazole Sodium (Protonix Ec Tab) 40 mg PO DAILY [facility] Thiamine HCl (Vitamin B1 Tab) 100 mg PO DAILY [facility] Last Admin: 12/28/17 10:20 Dose: 100 mg Trazodone HCl (Desyrel) 50 mg PO HS PRN PRN Reason: Insomnia Physical Exam - Constitutional Appears: Confused, Chronically Ill - Head Exam Head Exam: ATRAUMATIC, NORMOCEPHALIC - Eye Exam Eye Exam: EOMI. absent: Scleral icterus Pupil Exam: PERRL - ENT Exam ENT Exam: Mucous Membranes Moist - Respiratory Exam Respiratory Exam: Clear to Auscultation Bilateral, NORMAL BREATHING PATTERN - Cardiovascular Exam Cardiovascular Exam: +S1, +S2 - GI/Abdominal Exam GI & Abdominal Exam: Distended (RUQ), Normal Bowel Sounds Additional comments: scar in RUQ abdomen from former colostomy site- hernia appreciated - Extremities Exam Extremities exam: Negative for: pedal edema - Neurological Exam Neurological exam: Alert Additional comments: tremulous - Skin Skin Exam: Warm Results - Vital Signs Recent Vital Signs: Last Vital Signs Temp 97.9 F 12/28/17 06:45 Pulse 123 H 12/28/17 06:45 Resp 18 12/28/17 06:45 BP 104/64 12/28/17 06:45 Pulse Ox 97 12/28/17 06:45 - Labs Result Diagrams: 12/28/17 00:32 12/28/17 00:32 Labs: Laboratory Results - last 24 hr 12/27/17 12/28/17 12/28/17 18:13 00:32 00:32 WBC 5.9 RBC 4.20 L Hgb 13.8 Hct 39.8 MCV 94.9 H MCH 32.8 H MCHC 34.6 RDW 14.4 Plt Count 201 MPV 7.6 Neut % (Auto) 71.1 Lymph % (Auto) 22.1 [place] % (Auto) 6.1 Eos % (Auto) 0.2 Baso % (Auto) 0.5 Neut # (Auto) 4.2 Lymph # (Auto) 1.3 [place] # (Auto) 0.4 Eos # (Auto) 0.0 Baso # (Auto) 0.0 Sodium 149 H Potassium 3.7 Chloride 101 Carbon Dioxide 26 Anion Gap 25 H BUN 10 Creatinine 0.7 L Est GFR ( Amer) > 60 Est GFR (Non-Af Amer) > 60 POC Glucose (mg/dL) 189 H Random Glucose 105 Calcium 8.8 Total Bilirubin 1.0 AST 190 H D ALT 107 H D Alkaline Phosphatase 159 H Total Protein 8.3 Albumin 4.5 Globulin 3.8 Albumin/Globulin Ratio 1.2 Urine Color Urine Clarity Urine pH Ur Specific [place] Urine Protein Urine Glucose (UA) Urine Ketones Urine Blood Urine Nitrate Urine Bilirubin Urine Urobilinogen Ur Leukocyte Esterase Urine WBC (Auto) Urine RBC (Auto) Ur Squamous Epith Cells Urine Opiates Screen Urine Methadone Screen Ur Barbiturates Screen Ur Phencyclidine Scrn Ur Amphetamines Screen U Benzodiazepines Scrn U Oth Cocaine Metabols U Cannabinoids Screen Alcohol, Quantitative 283 H 12/28/17 12/28/17 02:54 02:54 WBC RBC Hgb Hct MCV MCH MCHC RDW Plt Count MPV Neut % (Auto) Lymph % (Auto) [place] % (Auto) Eos % (Auto) Baso % (Auto) Neut # (Auto) Lymph # (Auto) [place] # (Auto) Eos # (Auto) Baso # (Auto) Sodium Potassium Chloride Carbon Dioxide Anion Gap BUN Creatinine Est GFR ( Amer) Est GFR (Non-Af Amer) POC Glucose (mg/dL) Random Glucose Calcium Total Bilirubin AST ALT Alkaline Phosphatase Total Protein Albumin Globulin Albumin/Globulin Ratio Urine Color Kirsty Urine Clarity Clear Urine pH 5.0 Ur Specific [place] 1.025 Urine Protein 1+ H Urine Glucose (UA) Normal Urine Ketones Trace Urine Blood Negative Urine Nitrate Negative Urine Bilirubin Negative Urine Urobilinogen 4.0 Ur Leukocyte Esterase Neg Urine WBC (Auto) 1 Urine RBC (Auto) 1 Ur Squamous Epith Cells < 1 Urine Opiates Screen Negative Urine Methadone Screen Negative Ur Barbiturates Screen Negative Ur Phencyclidine Scrn Negative Ur Amphetamines Screen Negative U Benzodiazepines Scrn Negative U Oth Cocaine Metabols Negative U Cannabinoids Screen Negative Alcohol, Quantitative Assessment & Plan - Assessment and Plan (Free Text) Assessment: Delerium likely due to alcohol withdrawal, concern for DTs will continue to monitor on telemetry patient given banana bag, will continue PO vitamins after 1:1 placed CIWA protocol, aspiration precautions, seizure precautions ativan 1mg IVP q4 scheduled with 1mg PO q4 prn psych team to continue to follow Alcohol use disorder patient transferred from detox unit to telemetry due to concern for DTs patient tremulous and hallucinating at time of examination patient to be monitored on tele with IV ativan, banana bag, 1:1 Transaminitis patient has history of heavy alcohol use will check abdominal US ammonia level 31 Impaired glucose tolerance A1c 6.0 consistent carb diet Heroin use patient denies IVDA will check HIV and hepatitis panel methadone management as per psych team Discussed with Dr. Latif
[2017-12-28] MEDS: Pantoprazole 40 mg EC Tab PO SCH (13:28)
[2017-12-28] MEDS ORDERED: Folic Acid 1 MG, Thiamine 100 MG, Multivitamin (MVI) 10 ML in Dextrose 5% In Water 1,00... IV SCH (14:00)
--- NOTE | 2017-12-28 14:55 | US ---
HISTORY: RUQ enlargement, elevated LFTs, alcohol abuse COMPARISON: None. TECHNIQUE: Sonographic evaluation of the abdomen. FINDINGS: LIVER: Measures 20.1 cm. Increased echogenicity of the liver parenchyma. No mass. No intrahepatic bile duct dilatation. GALLBLADDER: Unremarkable. No gallstones. COMMON BILE DUCT: Measures 5 mm. No stones. No dilatation. PANCREAS: Unremarkable as visualized. No mass. No ductal dilatation. RIGHT KIDNEY: Measures 10.5 x 5 x 5cm. This suspicious for nonobstructing calculus at the mid to upper pole of the right kidney measures 5 millimeter. LEFT KIDNEY: Measures 11.3 x 5.8 x 4.9cm. Normal echogenicity. No calculus, mass, or hydronephrosis. SPLEEN: Normal in size and contour. No mass. AORTA: No aneurysmal dilatation. IVC: Unremarkable. OTHER FINDINGS: None. IMPRESSION: Hepatomegaly with diffuse increased echogenicity of the liver likely represent hepatic steatosis. Suspicious for 5 millimeter nonobstructing calculus at the mid to upper pole of the right kidney. No evidence of hydronephrosis.
[2017-12-29 08:15] LABS: BASO % 0.6 % (0.0-2.0); EOS # 0.1 K/uL (0.0-0.7); EOS % 1.2 % (0.0-4.0); LYMPH # 1.2 K/uL (1.0-4.3); LYMPH % 21.8 % (20.0-40.0); MEAN CELL VOLUME 95.3 fL (80.0-94.0); MEAN CORPUSCULAR HEMOGLOBIN 32.8 pg (27.0-31.0); MEAN CORPUSCULAR HGB CONC 34.4 g/dL (33.0-37.0); MEAN PLATELET VOLUME 8.8 fL (7.2-11.7); MONO # 0.4 K/uL (0.0-0.8); MONO % 6.6 % (0.0-10.0); NEUT # 3.9 K/uL (1.8-7.0); NEUT % 69.8 % (50.0-75.0); RBC 3.96 Mil/uL (4.40-5.90); WHITE BLOOD COUNT 5.5 K/uL (4.8-10.8)
[2017-12-29 08:41] LABS: ALB/GLOB RATIO 1.4 (1.0-2.1); ALBUMIN 4.6 g/dL (3.5-5.0); ALT/SGPT 81 U/L (21-72); AST/SGOT 136 U/L (17-59); BLOOD UREA NITROGEN 6 mg/dL (9-20); CALCIUM 9.6 mg/dl (8.6-10.4); GFR AFRICAN-AMERICAN > 60; GFR NON-AFRICAN AMERICAN > 60
--- NOTE | 2017-12-29 09:15 | CP.PCM.PN ---
Subjective - Date & Time of Evaluation Date of Evaluation: 12/29/17 Time of Evaluation: 07:00 - Subjective Subjective: Medicine Progress Note: Patient was seen and examined at bedside in the AM. Patient states he is feeling much better than yesterday. He denies ever having seizures in the past due to alcohol withdrawal. Patient states he has been drinking since he was 7 years of age. Patient states he drinks about a gallon of vodka and his last drink was on FridayDecember 26. Patient denies tremors, nausea, vomiting, diarrhea, constipation or headache. Objective - Vital Signs/Intake and Output Vital Signs (last 24 hours): Temp Pulse Resp BP Pulse Ox 98.4 F 93 H 20 115/73 98 12/29/17 08:00 12/29/17 08:00 12/29/17 08:00 12/29/17 08:00 12/29/17 08:00 Intake and Output: 12/29/17 12/29/17 06:59 18:59 Intake Total 800 Balance 800 - Medications Medications: Current Medications Benztropine Mesylate (Cogentin) 2 mg PO Q6H PRN PRN Reason: EPS Clonidine HCl (Catapres) 0.1 mg PO Q4H PRN PRN Reason: Symptoms of alcohol withdrawl Folic Acid (Folic Acid) 1 mg PO DAILY [facility] Last Admin: 12/28/17 10:20 Dose: 1 mg Haloperidol (Haldol) 0.5 mg PO BID [facility] Last Admin: 12/28/17 18:44 Dose: 0.5 mg Heparin Sodium (Porcine) (Heparin) 5,000 units SC Q12 [facility] Hydroxyzine HCl (Atarax) 25 mg PO Q6H PRN PRN Reason: Anxiety Ibuprofen (Motrin Tab) 600 mg PO TID PRN PRN Reason: Pain, moderate (4-7) Loperamide HCl (Imodium) 2 mg PO QID PRN PRN Reason: Diarrhea Last Admin: 12/28/17 07:45 Dose: 2 mg Lorazepam (Ativan) 2 mg PO Q4 [facility] PRN Reason: Taper Stop: 01/02/18 03:29 Last Admin: 12/28/17 11:47 Dose: 2 mg Lorazepam (Ativan) 1 mg PO Q4H PRN PRN Reason: Symptoms of alcohol withdrawl Last Admin: 12/28/17 15:18 Dose: 1 mg Lorazepam (Ativan) 1 mg IVP Q4H [facility] Last Admin: 12/29/17 08:45 Dose: 1 mg Multivitamins (Hexavitamin) 1 tab PO DAILY [facility] Last Admin: 12/28/17 10:24 Dose: 1 tab Ondansetron HCl (Zofran Odt) 4 mg PO Q8H PRN PRN Reason: Nausea/Vomiting Last Admin: 12/28/17 03:51 Dose: 4 mg Pantoprazole Sodium (Protonix Ec Tab) 40 mg PO DAILY [facility] Last Admin: 12/28/17 13:28 Dose: 40 mg Thiamine HCl (Vitamin B1 Tab) 100 mg PO DAILY [facility] Last Admin: 12/28/17 10:20 Dose: 100 mg Trazodone HCl (Desyrel) 50 mg PO HS PRN PRN Reason: Insomnia Last Admin: 12/28/17 21:02 Dose: 50 mg - Labs Labs: 12/29/17 08:02 12/29/17 08:02 - Constitutional Appears: No Acute Distress, Older Than Stated Age - Head Exam Head Exam: ATRAUMATIC, NORMAL INSPECTION, NORMOCEPHALIC - Eye Exam Eye Exam: EOMI, Normal appearance, PERRL. absent: Scleral icterus Pupil Exam: NORMAL ACCOMODATION - ENT Exam ENT Exam: Mucous Membranes Moist - Respiratory Exam Respiratory Exam: Clear to Ausculation Bilateral, NORMAL BREATHING PATTERN - Cardiovascular Exam Cardiovascular Exam: REGULAR RHYTHM, +S1, +S2 - GI/Abdominal Exam GI & Abdominal Exam: Distended, Soft, Normal Bowel Sounds. absent: Tenderness - Extremities Exam Extremities Exam: Normal Inspection. absent: Pedal Edema, Tenderness - Neurological Exam Neurological Exam: Alert, Awake, Oriented x3 Additional comments: Tremor - negative; heel to shine - bilateral normal; finger to nose - bilateral normal - Psychiatric Exam Psychiatric exam: Normal Affect, Normal Mood - Skin Skin Exam: Normal Color Assessment and Plan - Assessment and Plan (Free Text) Assessment: Delerium - resolved likely secondary to alcohol withdrawal Patient was given banana bag CIWA protocol, aspiration precautions, seizure precautions ativan 1mg IVP q4 scheduled with 1mg PO q4 prn psych team to continue to follow Alcohol use disorder psych team to continue to follow Transaminitis secondary to history of heavy alcohol use ammonia level 31 Hepatitis Panel Negative HIV negative Impaired glucose tolerance A1c 6.0 consistent carb diet Heroin use patient denies IVDA methadone management as per psych team Disposition: Patient transferred to Detox Case discussed with Dr. Michelle Castro PGY-1
[2017-12-29 09:50] LABS: HEPATITIS B SURFACE AG Negative (NEGATIVE)
[2017-12-29 09:56] LABS: HEPATITIS A IGM NEGATIVE (NEGATIVE); HEPATITIS B CORE AB NEGATIVE (NEGATIVE)
[2017-12-29] MEDS: Pantoprazole 40 mg EC Tab PO SCH (09:56)
[2017-12-29] MEDS: Multiple Vitamins Tab PO SCH (09:57)
[2017-12-29 10:08] LABS: HEPATITIS C ANTIBODY NEGATIVE (NEGATIVE)
--- NOTE | 2017-12-29 12:11 | CP.PCM.PCO ---
Physician Communication Note - Physician Communication Note Physician Communication Note: Patient is being transferred to detox
--- NOTE | 2017-12-29 12:17 | PCM.PYCHPN ---
Psychiatric Progress Note - Psychiatric Progress Note Patient seen today, length of contact: 16 min Patient Chief Complaint: "I'm OK" Problems Identified/Issues Discussed: He is seen, chat reviewed, case discussed Seen by Dr. Posada for consult Cleared by medicine now He agrees to come to detox and complete it there He is AOX3 (except for minor things) but somewhat loose in thought process No SEs from detox meds Labs are improving Medication Change: Yes (detox changes daily) Medical Record Reviewed: Yes Mental Status Examination - Cognitive Function Orientation: Person, Place, Situation, Time Memory: Impaired Attention: Poor Concentration: Poor Association: Loose Fund of Knowledge: Poor - Mood Mood: Depressed, Anxious - Affect Affect: Constricted - Formal Thought Process Formal Thought Process: No Impairment - Suicidal Ideation Suicidal Ideation: No - Homicidal Ideation Homicidal Ideation: No Goal/Treatment Plan - Goal/Treatment Plan Need for Continued Stay: Discharge may exacerbated symptoms, Severe functional impairment Progress Toward Problem(s) and Goals/Treatment Plan: Transferred to detox Complete detox Refer to rehab or IOP Support and psychoed [place] and CBT when better in cognition
--- NOTE | 2017-12-29 22:36 | CP.PCM.PN ---
<Temi Kirk - Last Filed: 12/29/17 23:22> Subjective - Date & Time of Evaluation Date of Evaluation: 12/29/17 Time of Evaluation: 23:17 - Subjective Subjective: H&P for Dr. Forrester Patient admitted to floor, sent to detox continues to have tremors and signs of DTs. Patient brought back to the floors for more management for altered mental status. No other changes at this time. 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 FamHx: diabetes in cousin Social Hx: alcohol use as described above, heroin use as described above PMD: none Objective - Vital Signs/Intake and Output Vital Signs (last 24 hours): Temp Pulse Resp BP Pulse Ox 98.2 F 108 H 19 119/65 98 12/29/17 21:23 12/29/17 21:23 12/29/17 21:23 12/29/17 21:23 12/29/17 21:23 - Medications Medications: Current Medications Benztropine Mesylate (Cogentin) 2 mg PO Q6H PRN PRN Reason: EPS Clonidine HCl (Catapres) 0.1 mg PO Q4H PRN PRN Reason: Symptoms of alcohol withdrawl Last Admin: 12/29/17 14:08 Dose: 0.1 mg Folic Acid (Folic Acid) 1 mg PO DAILY [facility] Last Admin: 12/29/17 09:57 Dose: 1 mg Haloperidol (Haldol) 0.5 mg PO BID [facility] Last Admin: 12/29/17 18:00 Dose: 0.5 mg Hydroxyzine HCl (Atarax) 25 mg PO Q6H PRN PRN Reason: Anxiety Ibuprofen (Motrin Tab) 600 mg PO TID PRN PRN Reason: Pain, moderate (4-7) Loperamide HCl (Imodium) 2 mg PO QID PRN PRN Reason: Diarrhea Last Admin: 12/28/17 07:45 Dose: 2 mg Lorazepam (Ativan) 2 mg PO Q4 [place] PRN Reason: Taper Stop: 01/02/18 03:29 Last Admin: 12/29/17 19:00 Dose: 2 mg Lorazepam (Ativan) 1 mg PO Q4H PRN PRN Reason: Symptoms of alcohol withdrawl Last Admin: 12/29/17 17:16 Dose: 1 mg Multivitamins (Hexavitamin) 1 tab PO DAILY [facility] Last Admin: 12/29/17 09:57 Dose: 1 tab Ondansetron HCl (Zofran Odt) 4 mg PO Q8H PRN PRN Reason: Nausea/Vomiting Last Admin: 12/29/17 09:23 Dose: 4 mg Pantoprazole Sodium (Protonix Ec Tab) 40 mg PO DAILY [facility] Last Admin: 12/29/17 09:56 Dose: 40 mg Thiamine HCl (Vitamin B1 Tab) 100 mg PO DAILY [facility] Last Admin: 12/29/17 09:56 Dose: 100 mg Trazodone HCl (Desyrel) 50 mg PO HS PRN PRN Reason: Insomnia Last Admin: 12/29/17 21:18 Dose: 50 mg - Labs Labs: 12/29/17 08:02 12/29/17 08:02 - Constitutional Appears: Non-toxic, No Acute Distress - Head Exam Head Exam: ATRAUMATIC, NORMAL INSPECTION, NORMOCEPHALIC - Eye Exam Eye Exam: EOMI, Normal appearance - ENT Exam ENT Exam: Mucous Membranes Moist, Normal Exam - Neck Exam Neck Exam: Full ROM, Normal Inspection. absent: Tenderness, Thyromegaly - Respiratory Exam Respiratory Exam: Clear to Ausculation Bilateral, NORMAL BREATHING PATTERN. absent: Accessory Muscle Use - Cardiovascular Exam Cardiovascular Exam: REGULAR RHYTHM, +S1, +S2. absent: Bradycardia, Tachycardia - GI/Abdominal Exam GI & Abdominal Exam: Soft, Normal Bowel Sounds. absent: Tenderness - Extremities Exam Extremities Exam: Full ROM, Normal Inspection. absent: Pedal Edema - Back Exam Back Exam: Full ROM, NORMAL INSPECTION. absent: CVA tenderness (L), CVA tenderness (R) - Neurological Exam Neurological Exam: Alert, Awake, CN II-XII Intact, Oriented x3. absent: Normal Gait - Psychiatric Exam Psychiatric exam: Normal Affect, Normal Mood - Skin Skin Exam: Dry, Intact, Normal Color, Warm Assessment and Plan - Assessment and Plan (Free Text) Assessment: Delerium - resolved likely secondary to alcohol withdrawal CIWA protocol, aspiration precautions, seizure precautions ativan 1mg IVP q4 scheduled with 1mg PO q4 prn psych team to continue to follow Alcohol use disorder psych team to continue to follow recent Transaminitis f/u AM CMP Impaired glucose tolerance A1c 6.0 consistent carb diet Heroin use history patient denies IVDA methadone management as per psych team Disposition: Patient transferred back to medicine floor Case discussed with Dr. Usama kirk DO PGY1 <Elmer Forrester P - Last Filed: 12/30/17 07:52> Objective - Vital Signs/Intake and Output Vital Signs (last 24 hours): Temp Pulse Resp BP Pulse Ox 98 F 98 H 20 123/74 95 12/29/17 23:30 12/30/17 01:00 12/29/17 23:30 12/29/17 23:30 12/29/17 23:30 - Medications Medications: Current Medications Benztropine Mesylate (Cogentin) 2 mg PO Q6H PRN PRN Reason: EPS Clonidine HCl (Catapres) 0.1 mg PO Q4H PRN PRN Reason: Symptoms of alcohol withdrawl Last Admin: 12/29/17 14:08 Dose: 0.1 mg Folic Acid (Folic Acid) 1 mg PO DAILY [facility] Last Admin: 12/29/17 09:57 Dose: 1 mg Haloperidol (Haldol) 0.5 mg PO BID [facility] Last Admin: 12/29/17 18:00 Dose: 0.5 mg Hydroxyzine HCl (Atarax) 25 mg PO Q6H PRN PRN Reason: Anxiety Lorazepam (Ativan) 1 mg IVP Q2H PRN PRN Reason: Agitation Last Admin: 12/30/17 06:53 Dose: 1 mg Lorazepam (Ativan) 2 mg PO Q6 [place] Multivitamins (Hexavitamin) 1 tab PO DAILY [facility] Last Admin: 12/29/17 09:57 Dose: 1 tab Ondansetron HCl (Zofran Odt) 4 mg PO Q8H PRN PRN Reason: Nausea/Vomiting Last Admin: 12/29/17 09:23 Dose: 4 mg Pantoprazole Sodium (Protonix Ec Tab) 40 mg PO DAILY [facility] Last Admin: 12/29/17 09:56 Dose: 40 mg Thiamine HCl (Vitamin B1 Tab) 100 mg PO DAILY [facility] Last Admin: 12/29/17 09:56 Dose: 100 mg Trazodone HCl (Desyrel) 50 mg PO HS PRN PRN Reason: Insomnia Last Admin: 12/29/17 21:18 Dose: 50 mg - Labs Labs: 12/29/17 08:02 12/29/17 08:02 Attending/Attestation - Attestation I have personally seen and examined this patient.: Yes I have fully participated in the care of the patient.: Yes I have reviewed all pertinent clinical information, including history, physical exam and plan: Yes Notes (Text): 12/30/17 07:46 At time of assessment patient confused, tangential thoughts, intermittent hallucinations, tachycardia, clinically dry all suggesting progression towards DT's No falls or injuries, meds reviewed. Plan Transferred to tele floor IVF IV ativan prn and scheduled oral ativan Mag iv Check electrolytes, mag, phos Thiamine iv then oral MVT, FA, thiamine scheduled hold prn haldol continue scheduled antipsychotic and trazodone GI/DVT prophylaxis See orders for detail.
[2017-12-30] MEDS ORDERED: Magnesium Sulfate 1 gm in D5W 1 GM/100 ML BAG IVPB ONE (06:23)
[2017-12-30] MEDS ORDERED: Thiamine 100 mg/ml Inj IV ONE (06:24)
--- NOTE | 2017-12-30 07:47 | CP.PCM.PN ---
<Loulou Castro - Last Filed: 12/30/17 15:38> Subjective - Date & Time of Evaluation Date of Evaluation: 12/30/17 Time of Evaluation: 07:00 - Subjective Subjective: Medicine Progress Note: Patient was seen and examined at bedside in the AM. Per the night resident Dr. Galvez patient became more agitated and was hallucinating overnight. Patient was then transferred back to the medical floor and placed on 1:1: ROS was not obtained because patient is altered (hallucinating). Objective - Vital Signs/Intake and Output Vital Signs (last 24 hours): Temp Pulse Resp BP Pulse Ox 98 F 98 H 20 123/74 95 12/29/17 23:30 12/30/17 01:00 12/29/17 23:30 12/29/17 23:30 12/29/17 23:30 - Medications Medications: Current Medications Benztropine Mesylate (Cogentin) 2 mg PO Q6H PRN PRN Reason: EPS Clonidine HCl (Catapres) 0.1 mg PO Q4H PRN PRN Reason: Symptoms of alcohol withdrawl Last Admin: 12/29/17 14:08 Dose: 0.1 mg Folic Acid (Folic Acid) 1 mg PO DAILY [facility] Last Admin: 12/29/17 09:57 Dose: 1 mg Haloperidol (Haldol) 0.5 mg PO BID [facility] Last Admin: 12/29/17 18:00 Dose: 0.5 mg Hydroxyzine HCl (Atarax) 25 mg PO Q6H PRN PRN Reason: Anxiety Lorazepam (Ativan) 1 mg IVP Q2H PRN PRN Reason: Agitation Last Admin: 12/30/17 06:53 Dose: 1 mg Lorazepam (Ativan) 2 mg PO Q6 [place] Multivitamins (Hexavitamin) 1 tab PO DAILY [facility] Last Admin: 12/29/17 09:57 Dose: 1 tab Ondansetron HCl (Zofran Odt) 4 mg PO Q8H PRN PRN Reason: Nausea/Vomiting Last Admin: 12/29/17 09:23 Dose: 4 mg Pantoprazole Sodium (Protonix Ec Tab) 40 mg PO DAILY [facility] Last Admin: 12/29/17 09:56 Dose: 40 mg Thiamine HCl (Vitamin B1 Tab) 100 mg PO DAILY [facility] Last Admin: 12/29/17 09:56 Dose: 100 mg Trazodone HCl (Desyrel) 50 mg PO HS PRN PRN Reason: Insomnia Last Admin: 12/29/17 21:18 Dose: 50 mg - Labs Labs: 12/29/17 08:02 12/29/17 08:02 - Constitutional Appears: Confused, Other (altered mental status ) - Head Exam Head Exam: ATRAUMATIC, NORMAL INSPECTION - Eye Exam Eye Exam: EOMI, Normal appearance - ENT Exam ENT Exam: Mucous Membranes Dry - Respiratory Exam Respiratory Exam: NORMAL BREATHING PATTERN - Cardiovascular Exam Cardiovascular Exam: REGULAR RHYTHM, +S1, +S2 - GI/Abdominal Exam GI & Abdominal Exam: Soft, Normal Bowel Sounds. absent: Tenderness - Extremities Exam Extremities Exam: Normal Inspection - Neurological Exam Neurological Exam: Awake - Skin Skin Exam: Normal Color Assessment and Plan - Assessment and Plan (Free Text) Assessment: Delerium Likely secondary to alcohol withdrawal - CIWA protocol, aspiration precautions, seizure precautions - psych team to continue to follow - Medications: * Banana Bag @100cc/hr * Ativan 1mg IVP q2 prn * Ativan 2mg IV q3h scheduled * Haldol 5mg po q4h prn Alcohol use disorder - psych team to continue to follow - Medications * Ativan 1mg IVP q2 prn * Ativan 2mg IV q3h scheduled * Clonidine 0.1mg q4 prn * Trazadone 50mg HS prn * Zofran 4mg IV q6 prn Transaminitis secondary to history of heavy alcohol use - ammonia level 31 - Hepatitis Panel Negative - HIV negative - f/u abdominal US Impaired glucose tolerance - A1c 6.0 - consistent carb diet Heroin use - patient denies IVDA - methadone management as per psych team Case discussed with Dr. Michelle Castro PGY-1 <Pollo Martniez H - Last Filed: 12/30/17 16:20> Objective - Vital Signs/Intake and Output Vital Signs (last 24 hours): Temp Pulse Resp BP Pulse Ox 97.7 F 97 H 21 122/84 100 12/30/17 15:00 12/30/17 15:00 12/30/17 15:00 12/30/17 15:00 12/30/17 15:00 - Medications Medications: Current Medications Benztropine Mesylate (Cogentin) 2 mg PO Q6H PRN PRN Reason: EPS Clonidine HCl (Catapres) 0.1 mg PO Q4H PRN PRN Reason: Symptoms of alcohol withdrawl Last Admin: 12/29/17 14:08 Dose: 0.1 mg Folic Acid (Folic Acid) 1 mg PO DAILY [facility] Last Admin: 12/30/17 09:39 Dose: 1 mg Haloperidol (Haldol) 2 mg PO BID [facility] Haloperidol (Haldol) 5 mg PO Q4H PRN PRN Reason: severe agitation max 4x/24h Hydroxyzine HCl (Atarax) 25 mg PO Q6H PRN PRN Reason: Anxiety Multivitamins/Vitamin C 10 ml/Thiamine HCl 100 mg/ Folic Acid 1 mg/ Sodium Chloride 1,011.2 mls @ 100 mls/hr IV .Q10H7M ONE Stop: 12/30/17 18:02 Last Admin: 12/30/17 09:05 Dose: 100 mls/hr Lorazepam (Ativan) 1 mg IVP Q2H PRN PRN Reason: Agitation Last Admin: 12/30/17 09:40 Dose: 1 mg Lorazepam (Ativan) 2 mg IVP Q3H [facility] Last Admin: 12/30/17 16:06 Dose: 2 mg Multivitamins (Hexavitamin) 1 tab PO DAILY [facility] Last Admin: 12/30/17 09:39 Dose: 1 tab Ondansetron HCl (Zofran Odt) 4 mg PO Q8H PRN PRN Reason: Nausea/Vomiting Last Admin: 12/29/17 09:23 Dose: 4 mg Ondansetron HCl (Zofran Inj) 4 mg IVP Q6 PRN PRN Reason: Nausea/Vomiting Pantoprazole Sodium (Protonix Ec Tab) 40 mg PO DAILY [facility] Last Admin: 12/30/17 09:39 Dose: 40 mg Thiamine HCl (Vitamin B1 Tab) 100 mg PO DAILY [facility] Last Admin: 12/30/17 09:39 Dose: 100 mg Trazodone HCl (Desyrel) 50 mg PO HS PRN PRN Reason: Insomnia Last Admin: 12/29/17 21:18 Dose: 50 mg - Labs Labs: 12/30/17 08:32 12/30/17 08:32 Attending/Attestation - Attestation I have personally seen and examined this patient.: Yes I have fully participated in the care of the patient.: Yes I have reviewed all pertinent clinical information, including history, physical exam and plan: Yes Notes (Text): 12/30/17 16:12 Medical attending: Patient was seen and examined by me as well, agree with the above note and plan written by the resident. Patient was awake, however confused. Clearly his mental status was worse then when we last saw him. The patient was trying to get out of bed, appeared unsteady and he had to be re-directed back to his bed. Will change ativan to 2mg IV Q3Hrs on a sceduled basis - only to be held if he is sleeping or somunlent. We will continue to evaluate him daily and if need to can decrease this tommorow or continue with this thank you Pollo Martinez
[2017-12-30] MEDS ORDERED: Multivitamin (MVI) 10 ML, Thiamine 100 MG, Folic Acid 1 MG in Sodium Chloride 0.9% 1,00... IV ONE ×3 (07:56→19:44)
[2017-12-30] MEDS ORDERED: Potassium Ch 20mEq in D5-1/2NS 1,000 ML IV SCH (08:00)
[2017-12-30 08:45] LABS: BASO % 0.7 % (0.0-2.0); EOS # 0.1 K/uL (0.0-0.7); EOS % 1.3 % (0.0-4.0); HEMOGLOBIN 12.7 g/dL (12.0-18.0); LYMPH # 0.9 K/uL (1.0-4.3); LYMPH % 15.9 % (20.0-40.0); MEAN CELL VOLUME 94.4 fL (80.0-94.0); MEAN CORPUSCULAR HEMOGLOBIN 33.1 pg (27.0-31.0); MEAN PLATELET VOLUME 8.4 fL (7.2-11.7); MONO # 0.4 K/uL (0.0-0.8); MONO % 6.4 % (0.0-10.0); NEUT # 4.2 K/uL (1.8-7.0); NEUT % 75.7 % (50.0-75.0); RBC 3.83 Mil/uL (4.40-5.90); WHITE BLOOD COUNT 5.6 K/uL (4.8-10.8)
[2017-12-30 09:14] LABS: ALB/GLOB RATIO 1.1 (1.0-2.1); ALBUMIN 4.2 g/dL (3.5-5.0); AST/SGOT 226 U/L (17-59); BLOOD UREA NITROGEN 8 mg/dL (9-20); GFR AFRICAN-AMERICAN > 60; GFR NON-AFRICAN AMERICAN > 60
[2017-12-30] MEDS: Pantoprazole 40 mg EC Tab PO SCH (09:39)
[2017-12-30] MEDS: Multiple Vitamins Tab PO SCH (09:39)
[2017-12-30 09:55] LABS: ALT/SGPT 122 U/L (21-72); CALCIUM 9.5 mg/dl (8.6-10.4)
--- NOTE | 2017-12-30 11:40 | PCM.PYCHPN ---
Psychiatric Progress Note - Psychiatric Progress Note Patient seen today, length of contact: 15 min Patient Chief Complaint: Not communicating Seen for follow up Problems Identified/Issues Discussed: He is seen, chart reviewed, case discussed He was transferred to detox unit but a few hours later he got into alcohol DT despite ativan and other measures and transferred back to medicine He is still in DT: hallucinating, talking to himself, disoriented... On 1:1 Meds adjusted Labs drawn (ammonia was normal last night) Medication Change: Yes (detox changes daily) Medical Record Reviewed: Yes Mental Status Examination - Cognitive Function Orientation: Situation (disoriented x3) Memory: Impaired Attention: Poor Concentration: Poor Association: Loose Fund of Knowledge: Poor - Mood Mood: Anxious - Affect Affect: Blunted - Speech Speech: Slurred - Formal Thought Process Formal Thought Process: Loosening of associations - Suicidal Ideation Suicidal Ideation: No - Homicidal Ideation Homicidal Ideation: No Goal/Treatment Plan - Goal/Treatment Plan Need for Continued Stay: Discharge may exacerbated symptoms, Severe functional impairment, Other (medical tx) Progress Toward Problem(s) and Goals/Treatment Plan: Continue adjusted detox Close observation Check VS frequently Hydrate well prn Ativan Labs daily Check other underlying conditions for delirium Support and psychoed
[2017-12-30] MEDS: Sodium Chloride 0.9% 1,000 ML IV SCH (20:59)
[2017-12-31 00:46] VITALS: RESP 20
[2017-12-31] MEDS: Sodium Chloride 0.9% 1,000 ML IV SCH ×2 (07:30→17:41)
[2017-12-31 07:56] LABS: BASO % 0.4 % (0.0-2.0); EOS # 0.1 K/uL (0.0-0.7); EOS % 2.2 % (0.0-4.0); LYMPH # 0.9 K/uL (1.0-4.3); LYMPH % 14.5 % (20.0-40.0); MEAN CELL VOLUME 93.7 fL (80.0-94.0); MEAN CORPUSCULAR HEMOGLOBIN 32.8 pg (27.0-31.0); MEAN PLATELET VOLUME 8.4 fL (7.2-11.7); MONO # 0.5 K/uL (0.0-0.8); MONO % 7.7 % (0.0-10.0); NEUT # 4.5 K/uL (1.8-7.0); NEUT % 75.2 % (50.0-75.0); RBC 3.95 Mil/uL (4.40-5.90); RED CELL DISTRIBUTION WIDTH 13.9 % (11.5-14.5)
[2017-12-31 08:02] LABS: ALB/GLOB RATIO 1.4 (1.0-2.1); ALBUMIN 4.4 g/dL (3.5-5.0); ALT/SGPT 184 U/L (21-72); AST/SGOT 268 U/L (17-59); BLOOD UREA NITROGEN 6 mg/dL (9-20); CALCIUM 8.4 mg/dl (8.6-10.4); GFR AFRICAN-AMERICAN > 60; GFR NON-AFRICAN AMERICAN > 60
--- NOTE | 2017-12-31 09:18 | CP.PCM.PN ---
<Loulou Castro - Last Filed: 12/31/17 10:41> Subjective - Date & Time of Evaluation Date of Evaluation: 12/31/17 Time of Evaluation: 07:00 - Subjective Subjective: Medicine Progress Note: Patient was seen and examined at bedside in the AM. Per nurse no events overnight. Patient is now oriented x3. Patient denies nausea, vomiting, fever or chills. Objective - Vital Signs/Intake and Output Vital Signs (last 24 hours): Temp Pulse Resp BP Pulse Ox 98.1 F 91 H 20 126/85 100 12/31/17 07:00 12/31/17 07:35 12/31/17 07:00 12/31/17 07:00 12/31/17 07:00 Intake and Output: 12/31/17 12/31/17 06:59 18:59 Output Total 400 Balance -400 - Medications Medications: Current Medications Benztropine Mesylate (Cogentin) 2 mg PO Q6H PRN PRN Reason: EPS Clonidine HCl (Catapres) 0.1 mg PO Q4H PRN PRN Reason: Symptoms of alcohol withdrawl Last Admin: 12/29/17 14:08 Dose: 0.1 mg Folic Acid (Folic Acid) 1 mg PO DAILY [facility] Last Admin: 12/30/17 09:39 Dose: 1 mg Haloperidol (Haldol) 2 mg PO BID [facility] Last Admin: 12/30/17 17:44 Dose: Not Given Haloperidol (Haldol) 5 mg PO Q4H PRN PRN Reason: severe agitation max 4x/24h Last Admin: 12/30/17 17:42 Dose: 5 mg Hydroxyzine HCl (Atarax) 25 mg PO Q6H PRN PRN Reason: Anxiety Sodium Chloride (Sodium Chloride 0.9%) 1,000 mls @ 100 mls/hr IV .Q10H [facility] Last Admin: 12/30/17 20:59 Dose: 100 mls/hr Lorazepam (Ativan) 1 mg IVP Q2H PRN PRN Reason: Agitation Last Admin: 12/30/17 20:52 Dose: 1 mg Lorazepam (Ativan) 2 mg IVP Q3H [facility] Last Admin: 12/31/17 05:42 Dose: 2 mg Multivitamins (Hexavitamin) 1 tab PO DAILY [facility] Last Admin: 12/30/17 09:39 Dose: 1 tab Ondansetron HCl (Zofran Odt) 4 mg PO Q8H PRN PRN Reason: Nausea/Vomiting Last Admin: 12/29/17 09:23 Dose: 4 mg Ondansetron HCl (Zofran Inj) 4 mg IVP Q6 PRN PRN Reason: Nausea/Vomiting Pantoprazole Sodium (Protonix Ec Tab) 40 mg PO DAILY [facility] Last Admin: 12/30/17 09:39 Dose: 40 mg Thiamine HCl (Vitamin B1 Tab) 100 mg PO DAILY [facility] Last Admin: 12/30/17 09:39 Dose: 100 mg Trazodone HCl (Desyrel) 50 mg PO HS PRN PRN Reason: Insomnia Last Admin: 12/29/17 21:18 Dose: 50 mg - Labs Labs: 12/31/17 07:36 12/31/17 07:36 - Constitutional Appears: Toxic, No Acute Distress - Head Exam Head Exam: ATRAUMATIC, NORMAL INSPECTION - Eye Exam Eye Exam: EOMI, Normal appearance - ENT Exam ENT Exam: Mucous Membranes Dry - Respiratory Exam Respiratory Exam: Clear to Ausculation Bilateral, NORMAL BREATHING PATTERN - Cardiovascular Exam Cardiovascular Exam: REGULAR RHYTHM, +S1, +S2 - GI/Abdominal Exam GI & Abdominal Exam: Soft, Normal Bowel Sounds. absent: Tenderness - Extremities Exam Extremities Exam: Normal Inspection - Neurological Exam Neurological Exam: Alert, Awake, Oriented x3 - Psychiatric Exam Psychiatric exam: Normal Affect - Skin Skin Exam: Normal Color Assessment and Plan - Assessment and Plan (Free Text) Assessment: Delerium Likely secondary to alcohol withdrawal - CIWA protocol, aspiration precautions, seizure precautions - psych team to continue to follow - Medications: * NS @100cc/hr * Ativan 1mg IVP q2 prn * Ativan 2mg IV q3h scheduled * Haldol 5mg po q4h prn Alcohol use disorder - psych team to continue to follow - Medications * Ativan 1mg IVP q2 prn * Ativan 2mg IV q3h scheduled * Clonidine 0.1mg q4 prn * Trazadone 50mg HS prn * Zofran 4mg IV q6 prn Transaminitis secondary to history of heavy alcohol use - ammonia level 31 - Hepatitis Panel Negative - HIV negative - Abdominal US (12/28/17): Hepatomegaly with diffuse increased echogenicity of the liver likely represent hepatic steatosis. Suspicious for 5 millimeter nonobstructing calculus at the mid to upper pole of the right kidney. No evidence of hydronephrosis Impaired glucose tolerance - A1c 6.0 - consistent carb diet Heroin use - patient denies IVDA - methadone management as per psych team Case discussed with Dr. Michelle Castro PGY-1 <Pollo Martinez H - Last Filed: 12/31/17 15:41> Objective - Vital Signs/Intake and Output Vital Signs (last 24 hours): Temp Pulse Resp BP Pulse Ox 98.1 F 91 H 20 126/85 100 12/31/17 07:00 12/31/17 07:35 12/31/17 07:00 12/31/17 07:00 12/31/17 07:00 Intake and Output: 12/31/17 12/31/17 06:59 18:59 Intake Total 800 Output Total 400 Balance -400 800 - Medications Medications: Current Medications Benztropine Mesylate (Cogentin) 2 mg PO Q6H PRN PRN Reason: EPS Clonidine HCl (Catapres) 0.1 mg PO Q4H PRN PRN Reason: Symptoms of alcohol withdrawl Last Admin: 12/29/17 14:08 Dose: 0.1 mg Folic Acid (Folic Acid) 1 mg PO DAILY [facility] Last Admin: 12/31/17 09:57 Dose: 1 mg Haloperidol (Haldol) 2 mg PO BID [facility] Last Admin: 12/31/17 09:59 Dose: 2 mg Haloperidol (Haldol) 5 mg PO Q4H PRN PRN Reason: severe agitation max 4x/24h Last Admin: 12/30/17 17:42 Dose: 5 mg Hydroxyzine HCl (Atarax) 25 mg PO Q6H PRN PRN Reason: Anxiety Sodium Chloride (Sodium Chloride 0.9%) 1,000 mls @ 100 mls/hr IV .Q10H [facility] Last Admin: 12/31/17 07:30 Dose: 100 mls/hr Lorazepam (Ativan) 1 mg IVP Q2H PRN PRN Reason: Agitation Last Admin: 12/31/17 14:59 Dose: 1 mg Lorazepam (Ativan) 2 mg IVP Q6H [facility] Last Admin: 12/31/17 12:15 Dose: Not Given Multivitamins (Hexavitamin) 1 tab PO DAILY [facility] Last Admin: 12/31/17 09:57 Dose: 1 tab Ondansetron HCl (Zofran Odt) 4 mg PO Q8H PRN PRN Reason: Nausea/Vomiting Last Admin: 12/29/17 09:23 Dose: 4 mg Ondansetron HCl (Zofran Inj) 4 mg IVP Q6 PRN PRN Reason: Nausea/Vomiting Pantoprazole Sodium (Protonix Ec Tab) 40 mg PO DAILY [facility] Last Admin: 12/31/17 09:58 Dose: 40 mg Thiamine HCl (Vitamin B1 Tab) 100 mg PO DAILY [facility] Last Admin: 12/31/17 09:58 Dose: 100 mg Trazodone HCl (Desyrel) 50 mg PO HS PRN PRN Reason: Insomnia Last Admin: 12/29/17 21:18 Dose: 50 mg - Labs Labs: 12/31/17 07:36 12/31/17 07:36 Attending/Attestation - Attestation I have personally seen and examined this patient.: Yes I have fully participated in the care of the patient.: Yes I have reviewed all pertinent clinical information, including history, physical exam and plan: Yes Notes (Text): 12/31/17 15:40 Medical attending: Patient was seen and examined by me. Agree with the above note by the resident The patient was not in any acute distress when we saw. He was awake and alert and could follow very simple commands. We will evaluate him again tommorow and then maybe decrease the ativan to a lesser amount thank you Pollo Martinez
[2017-12-31] MEDS: Multiple Vitamins Tab PO SCH (09:57)
[2017-12-31] MEDS: Pantoprazole 40 mg EC Tab PO SCH (09:58)
--- NOTE | 2017-12-31 11:41 | PCM.PYCHPN ---
Psychiatric Progress Note - Psychiatric Progress Note Patient seen today, length of contact: 15 min Patient Chief Complaint: "I am OK" Problems Identified/Issues Discussed: He is seen, chart reviewed, case discussed Dose needs to be adjusted today as he is no longer as confused and he is doing better Support given Psychoed given Medication Change: Yes (detox changes daily) Medical Record Reviewed: Yes Mental Status Examination - Cognitive Function Orientation: Person, Place, Time Memory: Impaired Attention: Poor Concentration: Poor Association: Loose Fund of Knowledge: Poor - Mood Mood: Anxious - Affect Affect: Blunted - Speech Speech: Slurred - Formal Thought Process Formal Thought Process: Loosening of associations - Suicidal Ideation Suicidal Ideation: No - Homicidal Ideation Homicidal Ideation: No Goal/Treatment Plan - Goal/Treatment Plan Need for Continued Stay: Discharge may exacerbated symptoms, Severe functional impairment, Other (medical tx) Progress Toward Problem(s) and Goals/Treatment Plan: Continue adjusted detox Close observation Check VS frequently Hydrate well prn Ativan Labs daily Check other underlying conditions for delirium Support and psychoed
--- NOTE | 2017-12-31 22:35 | CARD ---
APPROVED REPORT EKG Measurement Heart [id number] <Conclusion> Sinus tachycardia Otherwise normal ECG
[2018-01-01] MEDS: Sodium Chloride 0.9% 1,000 ML IV SCH (06:12)
--- NOTE | 2018-01-01 07:46 | CP.PCM.PN ---
<Loulou Castro - Last Filed: 01/01/18 10:45> Subjective - Date & Time of Evaluation Date of Evaluation: 01/01/18 Time of Evaluation: 07:00 - Subjective Subjective: Medicine Progress Note: Patient was seen and examined at bedside in the AM. Per nurse no events overnight. Patient is now oriented x3. Patient denies nausea, vomiting, fever or chills. Objective - Vital Signs/Intake and Output Vital Signs (last 24 hours): Temp Pulse Resp BP Pulse Ox 98.7 F 84 20 131/87 98 12/31/17 23:35 01/01/18 02:14 12/31/17 23:35 12/31/17 23:35 12/31/17 23:35 Intake and Output: 01/01/18 01/01/18 06:59 18:59 Intake Total 1300 Balance 1300 - Medications Medications: Current Medications Benztropine Mesylate (Cogentin) 2 mg PO Q6H PRN PRN Reason: EPS Clonidine HCl (Catapres) 0.1 mg PO Q4H PRN PRN Reason: Symptoms of alcohol withdrawl Last Admin: 12/29/17 14:08 Dose: 0.1 mg Folic Acid (Folic Acid) 1 mg PO DAILY [facility] Last Admin: 12/31/17 09:57 Dose: 1 mg Haloperidol (Haldol) 2 mg PO BID [facility] Last Admin: 12/31/17 17:40 Dose: 2 mg Haloperidol (Haldol) 5 mg PO Q4H PRN PRN Reason: severe agitation max 4x/24h Last Admin: 12/30/17 17:42 Dose: 5 mg Hydroxyzine HCl (Atarax) 25 mg PO Q6H PRN PRN Reason: Anxiety Sodium Chloride (Sodium Chloride 0.9%) 1,000 mls @ 100 mls/hr IV .Q10H [facility] Last Admin: 01/01/18 06:12 Dose: 100 mls/hr Lorazepam (Ativan) 1 mg IVP Q2H PRN PRN Reason: Agitation Last Admin: 12/31/17 20:21 Dose: 1 mg Lorazepam (Ativan) 2 mg IVP Q6H [facility] Last Admin: 01/01/18 06:13 Dose: 2 mg Multivitamins (Hexavitamin) 1 tab PO DAILY [facility] Last Admin: 12/31/17 09:57 Dose: 1 tab Ondansetron HCl (Zofran Odt) 4 mg PO Q8H PRN PRN Reason: Nausea/Vomiting Last Admin: 12/29/17 09:23 Dose: 4 mg Ondansetron HCl (Zofran Inj) 4 mg IVP Q6 PRN PRN Reason: Nausea/Vomiting Pantoprazole Sodium (Protonix Ec Tab) 40 mg PO DAILY [facility] Last Admin: 12/31/17 09:58 Dose: 40 mg Thiamine HCl (Vitamin B1 Tab) 100 mg PO DAILY [facility] Last Admin: 12/31/17 09:58 Dose: 100 mg Trazodone HCl (Desyrel) 50 mg PO HS PRN PRN Reason: Insomnia Last Admin: 12/29/17 21:18 Dose: 50 mg - Labs Labs: 12/31/17 07:36 12/31/17 07:36 - Constitutional Appears: No Acute Distress - Head Exam Head Exam: ATRAUMATIC, NORMAL INSPECTION - Eye Exam Eye Exam: EOMI, Normal appearance, PERRL Pupil Exam: NORMAL ACCOMODATION - ENT Exam ENT Exam: Mucous Membranes Moist - Respiratory Exam Respiratory Exam: Clear to Ausculation Bilateral, NORMAL BREATHING PATTERN - Cardiovascular Exam Cardiovascular Exam: REGULAR RHYTHM, +S1, +S2 - GI/Abdominal Exam GI & Abdominal Exam: Soft, Normal Bowel Sounds. absent: Tenderness - Extremities Exam Extremities Exam: Normal Inspection - Neurological Exam Neurological Exam: Alert, Awake, Oriented x3 Additional comments: mild tremor - Psychiatric Exam Psychiatric exam: Normal Affect, Normal Mood - Skin Skin Exam: Normal Color Assessment and Plan - Assessment and Plan (Free Text) Assessment: Delerium Likely secondary to alcohol withdrawal - CIWA protocol, aspiration precautions, seizure precautions - psych team to continue to follow - Medications: * Ativan 1mg IVP q2 prn * Ativan 2mg IV q8h scheduled * Haldol 5mg po q4h prn Alcohol use disorder - psych team to continue to follow - Medications * Ativan 1mg IVP q2 prn * Ativan 2mg IV q3h scheduled * Clonidine 0.1mg q4 prn * Trazadone 50mg HS prn * Zofran 4mg IV q6 prn Transaminitis secondary to history of heavy alcohol use - ammonia level 31 - Hepatitis Panel Negative - HIV negative - Abdominal US (12/28/17): Hepatomegaly with diffuse increased echogenicity of the liver likely represent hepatic steatosis. Suspicious for 5 millimeter nonobstructing calculus at the mid to upper pole of the right kidney. No evidence of hydronephrosis Impaired glucose tolerance - A1c 6.0 - consistent carb diet Heroin use - patient denies IVDA - methadone management as per psych team Case discussed with Dr. Michelle Castro PGY-1 <Pollo Martinez - Last Filed: 01/01/18 14:56> Objective - Vital Signs/Intake and Output Vital Signs (last 24 hours): Temp Pulse Resp BP Pulse Ox 98.3 F 84 20 120/84 97 01/01/18 07:00 01/01/18 07:00 01/01/18 07:00 01/01/18 07:00 01/01/18 07:00 Intake and Output: 01/01/18 01/01/18 06:59 18:59 Intake Total 1300 Balance 1300 - Medications Medications: Current Medications Benztropine Mesylate (Cogentin) 2 mg PO Q6H PRN PRN Reason: EPS Clonidine HCl (Catapres) 0.1 mg PO Q4H PRN PRN Reason: Symptoms of alcohol withdrawl Last Admin: 12/29/17 14:08 Dose: 0.1 mg Folic Acid (Folic Acid) 1 mg PO DAILY [facility] Last Admin: 01/01/18 09:46 Dose: 1 mg Haloperidol (Haldol) 2 mg PO BID [facility] Last Admin: 01/01/18 09:46 Dose: 2 mg Haloperidol (Haldol) 5 mg PO Q4H PRN PRN Reason: severe agitation max 4x/24h Last Admin: 12/30/17 17:42 Dose: 5 mg Hydroxyzine HCl (Atarax) 25 mg PO Q6H PRN PRN Reason: Anxiety Lorazepam (Ativan) 1 mg IVP Q2H PRN PRN Reason: Agitation Last Admin: 12/31/17 20:21 Dose: 1 mg Lorazepam (Ativan) 2 mg IVP Q8 [facility] Last Admin: 01/01/18 13:33 Dose: 2 mg Multivitamins (Hexavitamin) 1 tab PO DAILY [facility] Last Admin: 01/01/18 09:46 Dose: 1 tab Ondansetron HCl (Zofran Odt) 4 mg PO Q8H PRN PRN Reason: Nausea/Vomiting Last Admin: 12/29/17 09:23 Dose: 4 mg Ondansetron HCl (Zofran Inj) 4 mg IVP Q6 PRN PRN Reason: Nausea/Vomiting Pantoprazole Sodium (Protonix Ec Tab) 40 mg PO DAILY [facility] Last Admin: 01/01/18 09:46 Dose: 40 mg Thiamine HCl (Vitamin B1 Tab) 100 mg PO DAILY [facility] Last Admin: 01/01/18 09:46 Dose: 100 mg Trazodone HCl (Desyrel) 50 mg PO HS PRN PRN Reason: Insomnia Last Admin: 12/29/17 21:18 Dose: 50 mg - Labs Labs: 12/31/17 07:36 12/31/17 07:36 Attending/Attestation - Attestation I have personally seen and examined this patient.: Yes I have fully participated in the care of the patient.: Yes I have reviewed all pertinent clinical information, including history, physical exam and plan: Yes Notes (Text): 01/01/18 14:52 Medical attending: Patient was seen and examined by me. Agree with the above note by the resident The patient looked better when we saw him today. He was able to answer questions and follow commands. He was not altered like when we saw him previously We will see how he does tommorow. Possibly can be discharged. The ativan was already decreased by psychiatry. thank you Pollo Martinez
[2018-01-01] MEDS: Multiple Vitamins Tab PO SCH (09:46)
[2018-01-01] MEDS: Pantoprazole 40 mg EC Tab PO SCH (09:46)
--- NOTE | 2018-01-01 12:17 | PCM.PYCHPN ---
Psychiatric Progress Note - Psychiatric Progress Note Patient seen today, length of contact: 15 min Patient Chief Complaint: "Alright" Problems Identified/Issues Discussed: He is seen, chart reviewed, case discussed Doing better Out of delirium but not fully lucid No psych issues Support given Medication Change: Yes (detox changes daily) Medical Record Reviewed: Yes Mental Status Examination - Cognitive Function Orientation: Person, Place, Situation, Time Memory: Impaired Attention: Poor Concentration: Poor Association: WNL Fund of Knowledge: Poor - Mood Mood: Anxious - Affect Affect: Constricted - Speech Speech: Slurred - Formal Thought Process Formal Thought Process: Loosening of associations - Suicidal Ideation Suicidal Ideation: No - Homicidal Ideation Homicidal Ideation: No Goal/Treatment Plan - Goal/Treatment Plan Need for Continued Stay: Discharge may exacerbated symptoms, Severe functional impairment Progress Toward Problem(s) and Goals/Treatment Plan: Continue adjusted detox Close observation Check VS frequently Hydrate well prn Ativan Labs daily Support and psychoed
[2018-01-02 07:16] LABS: BASO % 0.4 % (0.0-2.0); EOS # 0.3 K/uL (0.0-0.7); EOS % 2.8 % (0.0-4.0); HEMOGLOBIN 13.5 g/dL (12.0-18.0); LYMPH # 1.4 K/uL (1.0-4.3); LYMPH % 15.9 % (20.0-40.0); MEAN CELL VOLUME 94.6 fL (80.0-94.0); MEAN CORPUSCULAR HEMOGLOBIN 32.6 pg (27.0-31.0); MEAN CORPUSCULAR HGB CONC 34.5 g/dL (33.0-37.0); MEAN PLATELET VOLUME 8.5 fL (7.2-11.7); MONO % 10.8 % (0.0-10.0); NEUT # 6.4 K/uL (1.8-7.0); NEUT % 70.1 % (50.0-75.0); NRBC % 0.1 % (0.0-2.0); RBC 4.14 Mil/uL (4.40-5.90); RED CELL DISTRIBUTION WIDTH 14.1 % (11.5-14.5); WHITE BLOOD COUNT 9.1 K/uL (4.8-10.8)
[2018-01-02 07:44] LABS: ALB/GLOB RATIO 1.4 (1.0-2.1); ALBUMIN 4.7 g/dL (3.5-5.0); ALT/SGPT 314 U/L (21-72); AST/SGOT 288 U/L (17-59); BLOOD UREA NITROGEN 13 mg/dL (9-20); CALCIUM 9.3 mg/dl (8.6-10.4); GFR AFRICAN-AMERICAN > 60; GFR NON-AFRICAN AMERICAN > 60
[2018-01-02 08:05] VITALS: BP 121/83; PULSE 88; TEMP 97.9; O2SAT 98
[2018-01-02] MEDS: Pantoprazole 40 mg EC Tab PO SCH (10:14)
[2018-01-02] MEDS: Multiple Vitamins Tab PO SCH (10:14)
--- NOTE | 2018-01-02 11:00 | CP.PCM.DIS ---
<Loulou Castro - Last Filed: 01/02/18 12:05> Provider - Provider Date of Admission: 12/28/17 02:08 Attending physician: Florian De Jesus MD Time Spent in preparation of Discharge (in minutes): 40 Hospital Course - Lab Results Lab Results: Most Recent Lab Values WBC 9.1 K/uL (4.8-10.8) D 01/02/18 07:09 RBC 4.14 Mil/uL (4.40-5.90) L 01/02/18 07:09 Hgb 13.5 g/dL (12.0-18.0) 01/02/18 07:09 Hct 39.1 % (35.0-51.0) 01/02/18 07:09 MCV 94.6 fL (80.0-94.0) H 01/02/18 07:09 MCH 32.6 pg (27.0-31.0) H 01/02/18 07:09 MCHC 34.5 g/dL (33.0-37.0) 01/02/18 07:09 RDW 14.1 % (11.5-14.5) 01/02/18 07:09 Plt Count 193 K/uL (130-400) 01/02/18 07:09 MPV 8.5 fL (7.2-11.7) 01/02/18 07:09 Neut % (Auto) 70.1 % (50.0-75.0) 01/02/18 07:09 Lymph % (Auto) 15.9 % (20.0-40.0) L 01/02/18 07:09 Yates % (Auto) 10.8 % (0.0-10.0) H 01/02/18 07:09 Eos % (Auto) 2.8 % (0.0-4.0) 01/02/18 07:09 Baso % (Auto) 0.4 % (0.0-2.0) 01/02/18 07:09 Neut # (Auto) 6.4 K/uL (1.8-7.0) 01/02/18 07:09 Lymph # (Auto) 1.4 K/uL (1.0-4.3) 01/02/18 07:09 Yates # (Auto) 1.0 K/uL (0.0-0.8) H 01/02/18 07:09 Eos # (Auto) 0.3 K/uL (0.0-0.7) 01/02/18 07:09 Baso # (Auto) 0.0 K/uL (0.0-0.2) 01/02/18 07:09 Sodium 138 mmol/L (132-148) 01/02/18 07:09 Potassium 3.7 mmol/L (3.6-5.2) 01/02/18 07:09 Chloride 100 mmol/L (98-107) 01/02/18 07:09 Carbon Dioxide 24 mmol/L (22-30) 01/02/18 07:09 Anion Gap 18 (10-20) 01/02/18 07:09 BUN 13 mg/dL (9-20) 01/02/18 07:09 Creatinine 0.7 mg/dL (0.8-1.5) L 01/02/18 07:09 Est GFR ( Amer) > 60 01/02/18 07:09 Est GFR (Non-Af Amer) > 60 01/02/18 07:09 POC Glucose (mg/dL) 189 mg/dL (65-110) H 12/27/17 18:13 Random Glucose 100 mg/dL (75-110) 01/02/18 07:09 Hemoglobin A1c 6.0 % (4.2-6.5) 12/28/17 15:36 Calcium 9.3 mg/dl (8.6-10.4) 01/02/18 07:09 Phosphorus 4.3 mg/dL (2.5-4.5) 01/02/18 07:09 Magnesium 2.0 mg/dL (1.6-2.3) 01/02/18 07:09 Total Bilirubin 0.9 mg/dL (0.2-1.3) 01/02/18 07:09 AST 288 U/L (17-59) H 01/02/18 07:09 ALT 314 U/L (21-72) H D 01/02/18 07:09 Alkaline Phosphatase 143 U/L (38-126) H D 01/02/18 07:09 Ammonia 18 umol/L (9-33) D 12/29/17 18:52 Total Protein 8.3 g/dL (6.3-8.3) 01/02/18 07:09 Albumin 4.7 g/dL (3.5-5.0) 01/02/18 07:09 Globulin 3.5 gm/dL (2.2-3.9) 01/02/18 07:09 Albumin/Globulin Ratio 1.4 (1.0-2.1) 01/02/18 07:09 Ethanolamine 39 mg/dL H 12/28/17 08:51 Urine Color Kirsty (YELLOW) 12/28/17 02:54 Urine Clarity Clear (Clear) 12/28/17 02:54 Urine pH 5.0 (5.0-8.0) 12/28/17 02:54 Ur Specific [place] 1.025 (1.003-1.030) 12/28/17 02:54 Urine Protein 1+ mg/dL (NEGATIVE) H 12/28/17 02:54 Urine Glucose (UA) Normal mg/dL (Normal) 12/28/17 02:54 Urine Ketones Trace mg/dL (NEGATIVE) 12/28/17 02:54 Urine Blood Negative (NEGATIVE) 12/28/17 02:54 Urine Nitrate Negative (NEGATIVE) 12/28/17 02:54 Urine Bilirubin Negative (NEGATIVE) 12/28/17 02:54 Urine Urobilinogen 4.0 mg/dL (0.2-1.0) 12/28/17 02:54 Ur Leukocyte Esterase Neg Chang/uL (Negative) 12/28/17 02:54 Urine WBC (Auto) 1 /hpf (0-5) 12/28/17 02:54 Urine RBC (Auto) 1 /hpf (0-3) 12/28/17 02:54 Ur Squamous Epith Cells < 1 /hpf (0-5) 12/28/17 02:54 Urine Opiates Screen Negative (NEGATIVE) 12/28/17 02:54 Urine Methadone Screen Negative (NEGATIVE) 12/28/17 02:54 Ur Barbiturates Screen Negative (NEGATIVE) 12/28/17 02:54 Ur Phencyclidine Scrn Negative (NEGATIVE) 12/28/17 02:54 Ur Amphetamines Screen Negative (NEGATIVE) 12/28/17 02:54 U Benzodiazepines Scrn Negative (NEGATIVE) 12/28/17 02:54 U Oth Cocaine Metabols Negative (NEGATIVE) 12/28/17 02:54 U Cannabinoids Screen Negative (NEGATIVE) 12/28/17 02:54 Alcohol, Quantitative 283 mg/dl (0-10) H 12/28/17 00:32 Methyl Alcohol Level None detected 12/28/17 08:51 Isopropanol None detected 12/28/17 08:51 Acetone Level None detected 12/28/17 08:51 Hepatitis A IgM Ab Negative (NEGATIVE) 12/28/17 15:36 Hep Bs Antigen Negative (NEGATIVE) 12/28/17 15:36 Hep B Core IgM Ab Negative (NEGATIVE) 12/28/17 15:36 Hepatitis C Antibody Negative (NEGATIVE) 12/28/17 15:36 HIV 1&2 Antibody Screen Negative (NEGATIVE) 12/28/17 15:36 - Hospital Course Hospital Course: Patient is a 47 year old male with history of alcohol and heroin use who was initially sent to ER via ambulance after being found intoxicated in public. Patient was brought to detox unit overnight. This morning, patient stated that when he closed his eyes he was seeing 3D figures, crosses and trees. He also stated he was seeing colors coming down from the ceiling and hanging in the air. Medicine team was consulted for concerns for DTs. Patient reports drinking 1 pint of vodka every morning to prevent shaking and drinking 1L vodka in the evenings. He also reports sniffing 10 bags of heroin daily. Patient reports his drinking increased over the past 6 years. He reports not eating well either. He reports abdominal pain in epigastric region, nausea, but no vomiting. 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 Patient was placed on an Ativan taper. Patient was also seen by psychiatry, Dr. De Jesus. Patient was also found to have transaminitis secondary to heavy alcohol use. Discussed with patient the importance of alcohol cessation. Patient states he understands and will be joining his latter-day for support. Images: - Abdominal US (12/28/17): Hepatomegaly with diffuse increased echogenicity of the liver likely represent hepatic steatosis. Suspicious for 5 millimeter nonobstructing calculus at the mid to upper pole of the right kidney. No evidence of hydronephrosis Patient is stable for discharge home. Patient to take an over the counter multivitamin daily. Patient to follow up with the [facility]: [place] [address] Please call to make an appointment #[phone] This is a summary of the patient's hospital course. Refer to full EMR for a complete record. Discharge Exam - Head Exam Head Exam: ATRAUMATIC, NORMAL INSPECTION - Eye Exam Eye Exam: EOMI, Normal appearance, PERRL Pupil Exam: NORMAL ACCOMODATION - ENT Exam ENT Exam: Mucous Membranes Moist - Respiratory Exam Respiratory Exam: Clear to PA & Lateral, NORMAL BREATHING PATTERN - Cardiovascular Exam Cardiovascular Exam: REGULAR RHYTHM, +S1, +S2 - GI/Abdominal Exam GI & Abdominal Exam: Normal Bowel Sounds, Soft. absent: Tenderness - Extremities Exam Extremities exam: normal inspection - Neurological Exam Neurological exam: Alert, Oriented x3 - Psychiatric Exam Psychiatric exam: Normal Affect, Normal Mood - Skin Skin Exam: Normal Color Discharge Plan - Follow Up Plan Condition: STABLE Disposition: HOME/ ROUTINE Instructions: Smoking: Not Just Harmful to Your Lungs and Heart, Quitting Smoking, Alcohol Withdrawal (DC), Alcohol Abuse and Alcoholism (DC), Drug Abuse Treatment Additional Instructions: Patient is stable for discharge home. Patient to take an over the counter multivitamin daily. Patient to follow up with the [facility]: [place] [address] Please call to make an appointment #[phone] Paciente para christi multivitaminas sin receta diariamente. Paciente para hacer un seguimiento con la [facility]: [place] [address] Por favor llame para hacer luis juan jose # [phone] Referrals: Jennifer Kessler MD [Staff Provider] - <Pollo Martinez - Last Filed: 01/02/18 15:05> Provider - Provider Date of Admission: 12/28/17 02:08 Attending physician: Florian De Jesus MD Hospital Course - Lab Results Lab Results: Most Recent Lab Values WBC 9.1 K/uL (4.8-10.8) D 01/02/18 07:09 RBC 4.14 Mil/uL (4.40-5.90) L 01/02/18 07:09 Hgb 13.5 g/dL (12.0-18.0) 01/02/18 07:09 Hct 39.1 % (35.0-51.0) 01/02/18 07:09 MCV 94.6 fL (80.0-94.0) H 01/02/18 07:09 MCH 32.6 pg (27.0-31.0) H 01/02/18 07:09 MCHC 34.5 g/dL (33.0-37.0) 01/02/18 07:09 RDW 14.1 % (11.5-14.5) 01/02/18 07:09 Plt Count 193 K/uL (130-400) 01/02/18 07:09 MPV 8.5 fL (7.2-11.7) 01/02/18 07:09 Neut % (Auto) 70.1 % (50.0-75.0) 01/02/18 07:09 Lymph % (Auto) 15.9 % (20.0-40.0) L 01/02/18 07:09 Yates % (Auto) 10.8 % (0.0-10.0) H 01/02/18 07:09 Eos % (Auto) 2.8 % (0.0-4.0) 01/02/18 07:09 Baso % (Auto) 0.4 % (0.0-2.0) 01/02/18 07:09 Neut # (Auto) 6.4 K/uL (1.8-7.0) 01/02/18 07:09 Lymph # (Auto) 1.4 K/uL (1.0-4.3) 01/02/18 07:09 Yates # (Auto) 1.0 K/uL (0.0-0.8) H 01/02/18 07:09 Eos # (Auto) 0.3 K/uL (0.0-0.7) 01/02/18 07:09 Baso # (Auto) 0.0 K/uL (0.0-0.2) 01/02/18 07:09 Sodium 138 mmol/L (132-148) 01/02/18 07:09 Potassium 3.7 mmol/L (3.6-5.2) 01/02/18 07:09 Chloride 100 mmol/L (98-107) 01/02/18 07:09 Carbon Dioxide 24 mmol/L (22-30) 01/02/18 07:09 Anion Gap 18 (10-20) 01/02/18 07:09 BUN 13 mg/dL (9-20) 01/02/18 07:09 Creatinine 0.7 mg/dL (0.8-1.5) L 01/02/18 07:09 Est GFR ( Amer) > 60 01/02/18 07:09 Est GFR (Non-Af Amer) > 60 01/02/18 07:09 POC Glucose (mg/dL) 189 mg/dL (65-110) H 12/27/17 18:13 Random Glucose 100 mg/dL (75-110) 01/02/18 07:09 Hemoglobin A1c 6.0 % (4.2-6.5) 12/28/17 15:36 Calcium 9.3 mg/dl (8.6-10.4) 01/02/18 07:09 Phosphorus 4.3 mg/dL (2.5-4.5) 01/02/18 07:09 Magnesium 2.0 mg/dL (1.6-2.3) 01/02/18 07:09 Total Bilirubin 0.9 mg/dL (0.2-1.3) 01/02/18 07:09 AST 288 U/L (17-59) H 01/02/18 07:09 ALT 314 U/L (21-72) H D 01/02/18 07:09 Alkaline Phosphatase 143 U/L (38-126) H D 01/02/18 07:09 Ammonia 18 umol/L (9-33) D 12/29/17 18:52 Total Protein 8.3 g/dL (6.3-8.3) 01/02/18 07:09 Albumin 4.7 g/dL (3.5-5.0) 01/02/18 07:09 Globulin 3.5 gm/dL (2.2-3.9) 01/02/18 07:09 Albumin/Globulin Ratio 1.4 (1.0-2.1) 01/02/18 07:09 Ethanolamine 39 mg/dL H 12/28/17 08:51 Urine Color Kirsty (YELLOW) 12/28/17 02:54 Urine Clarity Clear (Clear) 12/28/17 02:54 Urine pH 5.0 (5.0-8.0) 12/28/17 02:54 Ur Specific [place] 1.025 (1.003-1.030) 12/28/17 02:54 Urine Protein 1+ mg/dL (NEGATIVE) H 12/28/17 02:54 Urine Glucose (UA) Normal mg/dL (Normal) 12/28/17 02:54 Urine Ketones Trace mg/dL (NEGATIVE) 12/28/17 02:54 Urine Blood Negative (NEGATIVE) 12/28/17 02:54 Urine Nitrate Negative (NEGATIVE) 12/28/17 02:54 Urine Bilirubin Negative (NEGATIVE) 12/28/17 02:54 Urine Urobilinogen 4.0 mg/dL (0.2-1.0) 12/28/17 02:54 Ur Leukocyte Esterase Neg Chang/uL (Negative) 12/28/17 02:54 Urine WBC (Auto) 1 /hpf (0-5) 12/28/17 02:54 Urine RBC (Auto) 1 /hpf (0-3) 12/28/17 02:54 Ur Squamous Epith Cells < 1 /hpf (0-5) 12/28/17 02:54 Urine Opiates Screen Negative (NEGATIVE) 12/28/17 02:54 Urine Methadone Screen Negative (NEGATIVE) 12/28/17 02:54 Ur Barbiturates Screen Negative (NEGATIVE) 12/28/17 02:54 Ur Phencyclidine Scrn Negative (NEGATIVE) 12/28/17 02:54 Ur Amphetamines Screen Negative (NEGATIVE) 12/28/17 02:54 U Benzodiazepines Scrn Negative (NEGATIVE) 12/28/17 02:54 U Oth Cocaine Metabols Negative (NEGATIVE) 12/28/17 02:54 U Cannabinoids Screen Negative (NEGATIVE) 12/28/17 02:54 Alcohol, Quantitative 283 mg/dl (0-10) H 12/28/17 00:32 Methyl Alcohol Level None detected 12/28/17 08:51 Isopropanol None detected 12/28/17 08:51 Acetone Level None detected 12/28/17 08:51 Hepatitis A IgM Ab Negative (NEGATIVE) 12/28/17 15:36 Hep Bs Antigen Negative (NEGATIVE) 12/28/17 15:36 Hep B Core IgM Ab Negative (NEGATIVE) 12/28/17 15:36 Hepatitis C Antibody Negative (NEGATIVE) 12/28/17 15:36 HIV 1&2 Antibody Screen Negative (NEGATIVE) 12/28/17 15:36 Attending/Attestation - Attestation I have personally seen and examined this patient.: Yes I have fully participated in the care of the patient.: Yes I have reviewed all pertinent clinical information, including history, physical exam and plan: Yes Notes (Text): 01/02/18 15:05 Medical attending: Patient was seen and examined by me, agrees the above note by the quality engineer medical device. On physical exam today we had the patient walk around with us. We reviewed his telemetry as he walked around. It was normal sinus rhythm in the high 90s. He is not short of breath. He did not have chest pain walking around with us. He did not have any shaking or tremors. He stated that he felt well. He denied feeling anxious, He's been tolerating his diet, he denied having any problems with the bathroom Before we left and we encouraged him to continue avoiding alcohol as well as lifestyle modifications Thank you very much, Pollo Martinez
--- NOTE | 2018-01-02 13:29 | PCM.PYCHPN ---
Psychiatric Progress Note - Psychiatric Progress Note Patient seen today, length of contact: 15 min Patient Chief Complaint: "I'm going home" Problems Identified/Issues Discussed: He is seen, chart reviewed, case discussed Pt is much better today No delirium, no psych issues Still anxious and cognition is somewhat limited Cleared for d/c Medication Change: Yes (detox ending) Medical Record Reviewed: Yes Mental Status Examination - Cognitive Function Orientation: Person, Place, Time Memory: Impaired Attention: Poor Concentration: Poor Fund of Knowledge: Poor - Mood Mood: Anxious - Affect Affect: Constricted - Speech Speech: Slurred - Formal Thought Process Formal Thought Process: No Impairment - Suicidal Ideation Suicidal Ideation: No - Homicidal Ideation Homicidal Ideation: No Goal/Treatment Plan - Goal/Treatment Plan Progress Toward Problem(s) and Goals/Treatment Plan: Cleared for d/c
== END 2018-01-02 12:09 | disposition home or self-care (01) | DRG 745 ==
LOC: C.ER 18:03 → C.7D 12-28 02:08 → C.5S 12-28 14:26 → C.7D 12-29 12:13 → C.5S 12-29 23:10
PROVIDERS: ADMIT Psychiatry & Neurology Psychiatry; ATTEND Psychiatry & Neurology Psychiatry
PROC: HZ2ZZZZ Detoxification Services for Substance Abuse Treatment (ICD-10-PCS; principal; 2017-12-28)
PROC: HZ52ZZZ Individual Psychotherapy for Substance Abuse Treatment, Cognitive-Behavioral (ICD-10-PCS; 2017-12-28)
PROC: HZ59ZZZ Individual Psychotherapy for Substance Abuse Treatment, Supportive (ICD-10-PCS; 2017-12-28)
PROC: HZ56ZZZ Individual Psychotherapy for Substance Abuse Treatment, Psychoeducation (ICD-10-PCS; 2017-12-28)
PROC: HZ42ZZZ Group Counseling for Substance Abuse Treatment, Cognitive-Behavioral (ICD-10-PCS; 2017-12-28)
PROC: HZ46ZZZ Group Counseling for Substance Abuse Treatment, Psychoeducation (ICD-10-PCS; 2017-12-28)
PROC: GZHZZZZ Group Psychotherapy (ICD-10-PCS; 2017-12-28)
PROC: GZ58ZZZ Individual Psychotherapy, Cognitive-Behavioral (ICD-10-PCS; 2017-12-28)
PROC: GZ56ZZZ Individual Psychotherapy, Supportive (ICD-10-PCS; 2017-12-28)
DX: F11.23 Opioid dependence with withdrawal (principal); F10.231 Alcohol dependence with withdrawal delirium; F10.220 Alcohol dependence with intoxication, uncomplicated; Y90.8 Blood alcohol level of 240 mg/100 ml or more; F41.9 Anxiety disorder, unspecified; F32.9 Major depressive disorder, single episode, unspecified; F17.210 Nicotine dependence, cigarettes, uncomplicated; E11.9 Type 2 diabetes mellitus without complications; J45.909 Unspecified asthma, uncomplicated; R74.0 Nonspecific elevation of levels of transaminase and lactic acid dehydrogenase [LDH]; K76.0 Fatty (change of) liver, not elsewhere classified

== ENCOUNTER 2018-01-08 14:53 | Emergency (ER) | payer OTHER ==
[2018-01-08 14:53] VITALS: BMI 28.1
[2018-01-08 16:17] VITALS: BP 106/69; PULSE 104; RESP 20; TEMP 97.5; O2SAT 99
--- NOTE | 2018-01-08 18:20 | C.PDOC ---
History Of Present Illness 47 year old male is brought to the ED by ambulance for public alcohol intoxication. Patient admits to drinking earlier today. He denies suicidal/ homicidal ideation and has no complaints at this time. Time Seen by Provider: 01/08/18 15:06 Chief Complaint (Nursing): Substance Abuse History Per: Patient, EMS History/Exam Limitations: intoxication Onset/Duration Of Symptoms: Hrs, Waxing/Waning Suicide/Self Injury Attempted (Context): None Modifying Factor(s): Alcohol Associated Symptoms: denies: Suicidal Thoughts, Suicidal Plan Involuntary Hold By: None Recent travel outside of the [place]: No Additional History Per: Patient Past Medical History Reviewed: Historical Data, Nursing Documentation, Vital Signs Vital Signs: Last Vital Signs Temp 97.5 F L 01/08/18 16:16 Pulse 104 H 01/08/18 16:16 Resp 20 01/08/18 16:16 BP 106/69 01/08/18 16:16 Pulse Ox 99 01/08/18 22:10 - Medical History PMH: Asthma, Depression Denies: Diabetes, Hepatitis, HIV, HTN, Chronic Kidney Disease, Seizures, Sexually Transmitted Disease Surgical History: No Surg Hx - [facility] Procedures DETOXIFICATION SERVICES FOR SUBSTANCE ABUSE TREATMENT (12/28/17) GROUP COUPON REDEMPTION CLERK FOR SUBSTANCE ABUSE TREATMENT, PSYCHOEDUCATION (12/28/17) GROUP COUPON REDEMPTION CLERK FOR SUBSTANCE ABUSE, COGNITIVE BEHAVIORAL (12/28/17) GROUP PSYCHOTHERAPY (12/28/17) INDIV PSYCHOTHERAPY FOR SUBSTANCE ABUSE TREATMENT, SUPPORT (12/28/17) INDIV PSYCHOTHERAPY FOR SUBSTANCE ABUSE, COGNITIV BEHAVIORAL (12/28/17) INDIV PSYCHOTHERAPY FOR SUBSTANCE ABUSE, PSYCHOEDUCATION (12/28/17) INDIVIDUAL PSYCHOTHERAPY, COGNITIVE-BEHAVIORAL (12/28/17) INDIVIDUAL PSYCHOTHERAPY, SUPPORTIVE (12/28/17) MEDICATION MANAGEMENT (12/13/15) Family History: States: Unknown Family Hx - Social History Hx Tobacco Use: Yes Hx Alcohol Use: Yes Hx Substance Use: Yes (ETOH, Heroin) - Immunization History Hx Tetanus Toxoid Vaccination: No Hx Influenza Vaccination: No Hx Pneumococcal Vaccination: No Review Of Systems Psych: Positive for: Other (EtOH intoxication ). Negative for: Suicidal ideation Physical Exam - Physical Exam Appears: Non-toxic, No Acute Distress, Other (foul-smelling, disheveled ) Skin: Normal Color, Warm, Dry Head: Atraumatic, Normacephalic Eye(s): bilateral: Normal Inspection Oral Mucosa: Moist, Other (alcohol on breath ) Neck: Supple Chest: Symmetrical, No Deformity, No Tenderness Cardiovascular: Rhythm Regular, No Murmur Respiratory: Normal Breath Sounds, No Rales, No Rhonchi, No Wheezing Extremity: Normal ROM, Capillary Refill (less than 2 seconds ) Neurological/Psych: Other (arousable to touch and verbal stimuli ) ED Course And Treatment O2 Sat by Pulse Oximetry: 99 (on RA) Pulse Ox Interpretation: Normal Progress Note: labs ordered and reviewed. Reevaluation Time: 18:00 (pt eloped, noted to have stable gait per ancillary staff) Reassessment Condition: Improved Disposition Doctor Will See Patient In The: Office - Disposition Disposition: ELOPEMENT - ER ONLY Disposition Time: 18:00 Condition: GOOD Forms: [facility] (Sammarinese) - Clinical Impression Clinical Impression: Alcohol abuse - Scribe Statement The provider has reviewed the documentation as recorded by the Scribe (Liz Kenny) Provider Attestation: All medical record entries made by the Scribe were at my direction and personally dictated by me. I have reviewed the chart and agree that the record accurately reflects my personal performance of the history, physical exam, medical decision making, and the department course for this patient. I have also personally directed, reviewed, and agree with the discharge instructions and disposition.
== END 2018-01-08 18:00 | disposition left against medical advice (07) ==
LOC: C.ER 14:53
DX: F10.10 Alcohol abuse, uncomplicated (principal)

== ENCOUNTER 2018-01-08 22:58 | Emergency (ER) | payer OTHER ==
[2018-01-08 22:58] VITALS: BMI 28.1
--- NOTE | 2018-01-08 23:17 | C.PDOC ---
History Of Present Illness Patient brought in via EMS after being found intoxicated in public. Patient was seen in the ER earlier today but eloped. Denies physical complaints at this time. Time Seen by Provider: 01/08/18 23:17 History Per: Patient History/Exam Limitations: no limitations Onset/Duration Of Symptoms: Days Current Symptoms Are (Timing): Still Present Suicide/Self Injury Attempted (Context): None Modifying Factor(s): Alcohol Associated Symptoms: denies: Depression, Suicidal Thoughts Involuntary Hold By: None Recent travel outside of the [place]: No Past Medical History Reviewed: Historical Data, Nursing Documentation, Vital Signs Vital Signs: Last Vital Signs Temp 98.5 F 01/08/18 23:21 Pulse 90 01/08/18 23:21 Resp 16 01/08/18 23:21 BP 116/70 01/08/18 23:21 Pulse Ox 96 01/08/18 23:21 - Medical History PMH: Asthma, Depression - [facility] Procedures DETOXIFICATION SERVICES FOR SUBSTANCE ABUSE TREATMENT (12/28/17) GROUP NEUROLOGICAL PHYSIOTHERAPIST FOR SUBSTANCE ABUSE TREATMENT, PSYCHOEDUCATION (12/28/17) GROUP NEUROLOGICAL PHYSIOTHERAPIST FOR SUBSTANCE ABUSE, COGNITIVE BEHAVIORAL (12/28/17) GROUP PSYCHOTHERAPY (12/28/17) INDIV PSYCHOTHERAPY FOR SUBSTANCE ABUSE TREATMENT, SUPPORT (12/28/17) INDIV PSYCHOTHERAPY FOR SUBSTANCE ABUSE, COGNITIV BEHAVIORAL (12/28/17) INDIV PSYCHOTHERAPY FOR SUBSTANCE ABUSE, PSYCHOEDUCATION (12/28/17) INDIVIDUAL PSYCHOTHERAPY, COGNITIVE-BEHAVIORAL (12/28/17) INDIVIDUAL PSYCHOTHERAPY, SUPPORTIVE (12/28/17) MEDICATION MANAGEMENT (12/13/15) Family History: States: Unknown Family Hx - Social History Hx Tobacco Use: Yes Hx Alcohol Use: Yes Hx Substance Use: Yes (ETOH, Heroin) - Immunization History Hx Tetanus Toxoid Vaccination: No Hx Influenza Vaccination: No Hx Pneumococcal Vaccination: No Review Of Systems Constitutional: Negative for: Fever, Chills Cardiovascular: Negative for: Chest Pain, Palpitations Respiratory: Negative for: Cough, Shortness of Breath Gastrointestinal: Negative for: Nausea, Vomiting Physical Exam - Physical Exam Appears: Non-toxic, Other (ETOH on breath, No sign of injury) Skin: Warm, Dry Head: Normacephalic Oral Mucosa: Moist Chest: Symmetrical, No Tenderness Cardiovascular: Rhythm Regular Respiratory: No Rales, No Rhonchi, No Wheezing Gastrointestinal/Abdominal: Soft, No Tenderness Neurological/Psych: Oriented x3 ED Course And Treatment O2 Sat by Pulse Oximetry: 96 Pulse Ox Interpretation: Normal Reevaluation Time: 04:31 Reassessment Condition: Improved Disposition Counseled Patient/Family Regarding: Studies Performed, Diagnosis - Disposition Referrals: [facility] [Outside] Disposition: HOME/ ROUTINE Disposition Time: 23:17 Condition: FAIR Instructions: Alcohol Abuse and Alcoholism (DC) - Clinical Impression Clinical Impression: Alcohol intoxication, Alcohol abuse - Scribe Statement The provider has reviewed the documentation as recorded by the Scribe Kumar Brush All medical record entries made by the Scribe were at my direction and personally dictated by me. I have reviewed the chart and agree that the record accurately reflects my personal performance of the history, physical exam, medical decision making, and the department course for this patient. I have also personally directed, reviewed, and agree with the discharge instructions and disposition.
[2018-01-09 05:38] VITALS: BP 110/74; PULSE 78; RESP 20; TEMP 98; O2SAT 97
== END 2018-01-09 05:38 | disposition home or self-care (01) ==
LOC: C.ER 22:58
DX: F10.129 Alcohol abuse with intoxication, unspecified (principal)

== ENCOUNTER 2018-01-09 07:52 | Emergency (ER) | payer OTHER ==
[2018-01-09 08:04] VITALS: BMI 29.2
--- NOTE | 2018-01-09 08:49 | C.PDOC ---
History Of Present Illness 47 y/o male with history of ETOH abuse brought to ED by EMS for acute ETOH intoxication. Pt presents with no complaints. Denies SI/HI, sob, chest pain, abdominal pain, nausea, vomiting or any other complaints at this time. Time Seen by Provider: 01/09/18 08:25 Chief Complaint (Nursing): Substance Abuse History Per: Patient, EMS History/Exam Limitations: intoxication Onset/Duration Of Symptoms: Hrs Current Symptoms Are (Timing): Still Present Suicide/Self Injury Attempted (Context): None Modifying Factor(s): Alcohol Past Medical History Reviewed: Historical Data, Nursing Documentation, Vital Signs Vital Signs: Last Vital Signs Temp 98.4 F 01/09/18 13:50 Pulse 80 01/09/18 13:50 Resp 18 01/09/18 13:50 BP 120/83 01/09/18 13:50 Pulse Ox 100 01/09/18 13:50 - Medical History PMH: Asthma, Depression Surgical History: No Surg Hx - [facility] Procedures DETOXIFICATION SERVICES FOR SUBSTANCE ABUSE TREATMENT (12/28/17) GROUP HUMAN RESOURCES OFFICE MANAGER FOR SUBSTANCE ABUSE TREATMENT, PSYCHOEDUCATION (12/28/17) GROUP HUMAN RESOURCES OFFICE MANAGER FOR SUBSTANCE ABUSE, COGNITIVE BEHAVIORAL (12/28/17) GROUP PSYCHOTHERAPY (12/28/17) INDIV PSYCHOTHERAPY FOR SUBSTANCE ABUSE TREATMENT, SUPPORT (12/28/17) INDIV PSYCHOTHERAPY FOR SUBSTANCE ABUSE, COGNITIV BEHAVIORAL (12/28/17) INDIV PSYCHOTHERAPY FOR SUBSTANCE ABUSE, PSYCHOEDUCATION (12/28/17) INDIVIDUAL PSYCHOTHERAPY, COGNITIVE-BEHAVIORAL (12/28/17) INDIVIDUAL PSYCHOTHERAPY, SUPPORTIVE (12/28/17) MEDICATION MANAGEMENT (12/13/15) Family History: States: No Known Family Hx - Social History Hx Tobacco Use: Yes Hx Alcohol Use: Yes Hx Substance Use: Yes (ETOH, Heroin) - Immunization History Hx Tetanus Toxoid Vaccination: No Hx Influenza Vaccination: No Hx Pneumococcal Vaccination: No Review Of Systems Constitutional: Negative for: Fever, Chills Cardiovascular: Negative for: Chest Pain Respiratory: Negative for: Shortness of Breath Gastrointestinal: Negative for: Nausea, Vomiting Psych: Positive for: Other (ETOH intoxication). Negative for: Suicidal ideation , Withdrawal Physical Exam - Physical Exam Appears: Non-toxic, No Acute Distress, Other (ETOH on breath) Skin: Warm, Dry, No Rash Head: Atraumatic, Normacephalic Eye(s): bilateral: Normal Inspection, EOMI Nose: Normal Oral Mucosa: Moist Neck: Normal ROM, Supple Chest: Symmetrical Cardiovascular: Rhythm Regular Respiratory: Normal Breath Sounds, No Rales, No Rhonchi, No Wheezing Gastrointestinal/Abdominal: Soft, No Tenderness, No Guarding, No Rebound Back: No CVA Tenderness Neurological/Psych: Oriented x3 ED Course And Treatment O2 Sat by Pulse Oximetry: 96 (RA) Pulse Ox Interpretation: Normal Progress Note: Patient will be placed in observation, pending sobriety. On re- evaluation, patient is in no acute distress, resting comfortably. Wakes up with verbal stimuli. 11/23/16 05:00. Patient is comfortable and sleeping. On re- evaluation, pt has been closely monitored throughout the stay in the ED. Currently pt is ANOx3 to person, place, and time. Denies suicidal or homicidal ideations. Pt has steady gait, ambulates without difficulty, not slurring speech. Pt able to tolerate PO without any difficulty. Patient denies any complaints at this time. Patient is not tremulous, not tachycardic, no signs or symptoms of alcohol withdrawal. Pt was offered detox, declined noting " I have to go now, I want to be discharged. ". Pt states he understands to return to the ER right away for new or worsening symptoms or for inability to f/u with PMD or specialist as instructed. Disposition - Disposition Disposition: HOME/ ROUTINE Disposition Time: 13:31 Condition: STABLE Additional Instructions: Call [phone] for bed availability when you are ready for detox. Instructions: Alcohol Abuse and Alcoholism (DC) Forms: [facility] (Indonesian) Print Language: HUNGARIAN - Clinical Impression Clinical Impression: Alcohol abuse - PA / DISASSEMBLER / Resident Statement MD/DO has reviewed & agrees with the documentation as recorded. - Scribe Statement The provider has reviewed the documentation as recorded by the Arminibjean Soto All medical record entries made by the Arminibjean were at my direction and personally dictated by me. I have reviewed the chart and agree that the record accurately reflects my personal performance of the history, physical exam, medical decision making, and the department course for this patient. I have also personally directed, reviewed, and agree with the discharge instructions and disposition.
[2018-01-09 10:22] VITALS: RESP 18
[2018-01-09 13:50] VITALS: BP 120/83; PULSE 80; TEMP 98.4
[2018-01-09 16:35] VITALS: O2SAT 96
== END 2018-01-09 13:30 | disposition home or self-care (01) ==
LOC: C.ER 07:52
DX: F10.129 Alcohol abuse with intoxication, unspecified (principal); Y90.9 Presence of alcohol in blood, level not specified

== ENCOUNTER 2018-01-10 20:43 | Inpatient (IN) | payer OTHER ==
[2018-01-10 20:43] VITALS: BMI 29.2
--- NOTE | 2018-01-10 21:22 | C.PDOC ---
History Of Present Illness 47 y/o male presents to the ER for alcohol detox. As per EMS, patient was found prone on the floor in [facility]. Patient admits to drinking 2 pints of alcohol today. Patient denies any SI/HI, headache, fever, vomiting, nausea, or any other medical complaints. Time Seen by Provider: 01/10/18 20:56 Chief Complaint (Nursing): Substance Abuse History Per: Patient, EMS History/Exam Limitations: no limitations Onset/Duration Of Symptoms: Hrs Current Symptoms Are (Timing): Still Present Suicide/Self Injury Attempted (Context): None Modifying Factor(s): Alcohol Associated Symptoms: denies: Suicidal Thoughts, Suicidal Plan Past Medical History Reviewed: Historical Data, Nursing Documentation, Vital Signs Vital Signs: Last Vital Signs Temp 97.5 F L 01/11/18 00:49 Pulse 84 01/11/18 00:49 Resp 20 01/11/18 00:49 BP 115/74 01/11/18 00:49 Pulse Ox 96 01/11/18 00:49 - Medical History PMH: Asthma, Depression Denies: Diabetes, Hepatitis, HIV, HTN, Chronic Kidney Disease, Seizures, Sexually Transmitted Disease Other Surgeries: Hx of surgeries - [facility] Procedures DETOXIFICATION SERVICES FOR SUBSTANCE ABUSE TREATMENT (12/28/17) GROUP COMPONENT ENGINEER FOR SUBSTANCE ABUSE TREATMENT, PSYCHOEDUCATION (12/28/17) GROUP COMPONENT ENGINEER FOR SUBSTANCE ABUSE, COGNITIVE BEHAVIORAL (12/28/17) GROUP PSYCHOTHERAPY (12/28/17) INDIV PSYCHOTHERAPY FOR SUBSTANCE ABUSE TREATMENT, SUPPORT (12/28/17) INDIV PSYCHOTHERAPY FOR SUBSTANCE ABUSE, COGNITIV BEHAVIORAL (12/28/17) INDIV PSYCHOTHERAPY FOR SUBSTANCE ABUSE, PSYCHOEDUCATION (12/28/17) INDIVIDUAL PSYCHOTHERAPY, COGNITIVE-BEHAVIORAL (12/28/17) INDIVIDUAL PSYCHOTHERAPY, SUPPORTIVE (12/28/17) MEDICATION MANAGEMENT (12/13/15) Family History: States: No Known Family Hx - Social History Hx Tobacco Use: Yes Hx Alcohol Use: Yes Hx Substance Use: Yes (ETOH, Heroin) - Immunization History Hx Tetanus Toxoid Vaccination: No Hx Influenza Vaccination: No Hx Pneumococcal Vaccination: No Review Of Systems Except As Marked, All Systems Reviewed And Found Negative. Constitutional: Negative for: Fever Gastrointestinal: Negative for: Nausea, Vomiting Neurological: Negative for: Headache Psych: Negative for: Depression, Suicidal ideation Physical Exam - Physical Exam Additional Physical Exam Comments: Constitutional: No acute distress. Head: Normocephalic. Atraumatic. Eyes: PERRL. ENT: Moist mucous membranes. Neck: Supple. Cardiovascular: Regular rate. Radial pulse 2+ bilaterally. Chest: No tenderness. Respiratory: Clear to auscultation bilaterally. GI: Soft. Nontender. Nondistended. Back: No CVA tenderness. Musculoskeletal: No tenderness or swelling of extremities. Skin: No rash. Neurologic: Alert, no focal deficit. ED Course And Treatment O2 Sat by Pulse Oximetry: 94 (RA) Pulse Ox Interpretation: Normal Medical Decision Making Medical Decision Making: Impression: Substance abuse Pending sobriety. Signed out to ED night team pending sobriety. Disposition - Disposition Disposition Time: 00:57 Condition: STABLE Forms: [facility] (Sami) - Clinical Impression Clinical Impression: Alcohol intoxication - Scribe Statement The provider has reviewed the documentation as recorded by the Scribjean Caldwell All medical record entries made by the Scribe were at my direction and personally dictated by me. I have reviewed the chart and agree that the record accurately reflects my personal performance of the history, physical exam, medical decision making, and the department course for this patient. I have also personally directed, reviewed, and agree with the discharge instructions and disposition.
[2018-01-11] MEDS ORDERED: diaZEpam 10 mg/2 ml Inj IVP ONE (06:19)
[2018-01-11 06:23] LABS: BASO # 0.1 K/uL (0.0-0.2); BASO % 0.9 % (0.0-2.0); EOS # 0.1 K/uL (0.0-0.7); EOS % 1.3 % (0.0-4.0); HEMOGLOBIN 12.8 g/dL (12.0-18.0); LYMPH % 18.2 % (20.0-40.0); MEAN CELL VOLUME 95.8 fL (80.0-94.0); MEAN CORPUSCULAR HEMOGLOBIN 33.3 pg (27.0-31.0); MEAN CORPUSCULAR HGB CONC 34.8 g/dL (33.0-37.0); MONO # 0.2 K/uL (0.0-0.8); MONO % 3.4 % (0.0-10.0); NEUT # 4.2 K/uL (1.8-7.0); NEUT % 76.2 % (50.0-75.0); RBC 3.84 Mil/uL (4.40-5.90); RED CELL DISTRIBUTION WIDTH 15.1 % (11.5-14.5); WHITE BLOOD COUNT 5.6 K/uL (4.8-10.8)
[2018-01-11] MEDS ORDERED: Sodium Chloride 0.9% 1,000 ML IV ONE (06:28)
[2018-01-11 06:31] LABS: BARBITURATES, UR NEGATIVE (NEGATIVE); OPIATES, UR NEGATIVE (NEGATIVE); PHENCYCLIDINE, UR NEGATIVE (NEGATIVE); SQUAMOUS EPITHIAL < 1 /hpf (0-5)
[2018-01-11 06:38] LABS: URINE BILIRUBIN NEGATIVE (NEGATIVE); URINE BLOOD NEGATIVE (NEGATIVE); URINE CLARITY CLEAR (Clear); URINE COLOR YELLOW (YELLOW); URINE GLUCOSE (UA) NEGATIVE (Normal); URINE PROTEIN NEGATIVE (NEGATIVE)
[2018-01-11 06:39] LABS: URINE LEUKOCYTE ESTERASE NEGATIVE Leu/uL (Negative); URINE UROBILINOGEN 0.2 mg/dL (0.2-1.0)
[2018-01-11 06:40] LABS: BENZODIAZEPINES, UR POSITIVE (NEGATIVE)
[2018-01-11 06:43] LABS: ALB/GLOB RATIO 1.3 (1.0-2.1); ALBUMIN 4.2 g/dL (3.5-5.0); ALT/SGPT 87 U/L (21-72); AST/SGOT 79 U/L (17-59); BLOOD UREA NITROGEN 8 mg/dL (9-20); CALCIUM 8.6 mg/dl (8.6-10.4); GFR AFRICAN-AMERICAN > 60; GFR NON-AFRICAN AMERICAN > 60
--- NOTE | 2018-01-11 08:55 | CP.PCM.HP ---
History of Present Illness - History of Present Illness History of Present Illness: PGY-[address] Bennett. Mr Charles Marr is a 47 year old male with a PMHx of polysubstance abuse who presents to the ER because he was found in the prone position in [facility]. He stated his last drink was 01/09/2018 in the AM - he states he drinks about a couple of pints of vodka daily. He currently complained of hallucinations - stating he thinks he see's things aren't there. He's been in the ER numerous times for alcohol abuse and has been in our detox unit in the past. He admits to right-sided abdominal pain. He denies emesis, seizures, fever , chest pain. 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 absent: Chills, Fever - EENT Eyes: Blurred Vision - Cardiovascular Cardiovascular: absent: Chest Pain - Respiratory Respiratory: absent: Cough, Dyspnea - Gastrointestinal Gastrointestinal: Abdominal Pain - Genitourinary Genitourinary: absent: Dysuria - Neurological Neurological: Disequilibrium Past Patient History - Infectious Disease Hx of Infectious Diseases: None - Past Medical History & Family History Past Medical History?: Yes - Past Social History Smoking Status: Heavy Smoker > 10 Cigarettes Daily - CARDIAC Hx Hypertension: No - PULMONARY Hx Asthma: Yes - NEUROLOGICAL Hx Seizures: No - HEENT Hx HEENT Problems: No - RENAL Hx Chronic Kidney Disease: No - ENDOCRINE/METABOLIC Hx Endocrine Disorders: Yes Hx Diabetes Mellitus Type 2: Yes - HEMATOLOGICAL/ONCOLOGICAL Hx Human Immunodeficiency Virus (HIV): No - INTEGUMENTARY Hx Dermatological Problems: No - MUSCULOSKELETAL/RHEUMATOLOGICAL Hx Musculoskeletal Disorders: No Hx Falls: No (Denied) - GASTROINTESTINAL Hx Gastrointestinal Disorders: No - GENITOURINARY/GYNECOLOGICAL Hx Sexually Transmitted Disorders: No - PSYCHIATRIC Hx Depression: Yes Hx Substance Use: Yes (ETOH, Heroin) - SURGICAL HISTORY Hx Surgeries: Yes Other/Comment: abdominal surgery 10 years ago. old scar on RUQ abdomen - ANESTHESIA Hx Anesthesia: Yes Hx Anesthesia Reactions: No Hx Malignant Hyperthermia: No Meds Allergies/Adverse Reactions: Allergies Allergy/AdvReac Type Severity Reaction Status Date / Time No Known Allergies Allergy Verified 01/10/18 20:56 Physical Exam - Constitutional Appears: No Acute Distress, Unkempt, Older Than Stated Age - Head Exam Head Exam: ATRAUMATIC, NORMAL INSPECTION - Eye Exam Eye Exam: EOMI Pupil Exam: PERRL - ENT Exam ENT Exam: Mucous Membranes Moist - Neck Exam Neck exam: Positive for: Normal Inspection - Respiratory Exam Respiratory Exam: Clear to Auscultation Bilateral, NORMAL BREATHING PATTERN. absent: Rales, Rhonchi, Wheezes - Cardiovascular Exam Cardiovascular Exam: Tachycardia, REGULAR RHYTHM, +S1, +S2. absent: JVD, Systolic Murmur - GI/Abdominal Exam GI & Abdominal Exam: Normal Bowel Sounds, Soft, Tenderness. absent: Distended, Firm, Guarding - Extremities Exam Extremities exam: Positive for: normal inspection. Negative for: calf tenderness - Neurological Exam Neurological exam: Alert, Oriented x3 - Psychiatric Exam Psychiatric exam: Anxious - Skin Skin Exam: Normal Color, Urticaria, Warm Results - Vital Signs Recent Vital Signs: Last Vital Signs Temp 98.5 F 01/11/18 07:35 Pulse 101 H 01/11/18 07:49 Resp 18 01/11/18 07:49 BP 123/73 01/11/18 07:49 Pulse Ox 93 L 01/11/18 07:49 - Labs Result Diagrams: 01/11/18 06:21 01/11/18 06:21 Labs: Laboratory Results - last 24 hr 01/11/18 01/11/18 01/11/18 00:47 06:13 06:13 WBC RBC Hgb Hct MCV MCH MCHC RDW Plt Count MPV Neut % (Auto) Lymph % (Auto) Eaton % (Auto) Eos % (Auto) Baso % (Auto) Neut # (Auto) Lymph # (Auto) Eaton # (Auto) Eos # (Auto) Baso # (Auto) Sodium Potassium Chloride Carbon Dioxide Anion Gap BUN Creatinine Est GFR ( Amer) Est GFR (Non-Af Amer) POC Glucose (mg/dL) 116 H Random Glucose Calcium Total Bilirubin AST ALT Alkaline Phosphatase Total Protein Albumin Globulin Albumin/Globulin Ratio Urine Color Yellow Urine Clarity Clear Urine pH 6.0 Ur Specific [place] 1.025 Urine Protein Negative Urine Glucose (UA) Negative Urine Ketones Trace Urine Blood Negative Urine Nitrate Negative Urine Bilirubin Negative Urine Urobilinogen 0.2 Ur Leukocyte Esterase Negative Urine WBC (Auto) 1 Urine RBC (Auto) < 1 Ur Squamous Epith Cells < 1 Urine Opiates Screen Negative Urine Methadone Screen Negative Ur Barbiturates Screen Negative Ur Phencyclidine Scrn Negative Ur Amphetamines Screen Negative U Benzodiazepines Scrn Positive U Oth Cocaine Metabols Negative U Cannabinoids Screen Negative Alcohol, Quantitative 01/11/18 01/11/18 06:21 06:21 WBC 5.6 RBC 3.84 L Hgb 12.8 Hct 36.8 MCV 95.8 H MCH 33.3 H MCHC 34.8 RDW 15.1 H Plt Count 404 H D MPV 7.0 L Neut % (Auto) 76.2 H Lymph % (Auto) 18.2 L Eaton % (Auto) 3.4 Eos % (Auto) 1.3 Baso % (Auto) 0.9 Neut # (Auto) 4.2 Lymph # (Auto) 1.0 Eaton # (Auto) 0.2 Eos # (Auto) 0.1 Baso # (Auto) 0.1 Sodium 147 Potassium 4.1 Chloride 103 Carbon Dioxide 25 Anion Gap 23 H BUN 8 L Creatinine 0.5 L Est GFR ( Amer) > 60 Est GFR (Non-Af Amer) > 60 POC Glucose (mg/dL) Random Glucose 106 Calcium 8.6 Total Bilirubin 0.6 AST 79 H D ALT 87 H D Alkaline Phosphatase 124 Total Protein 7.5 Albumin 4.2 Globulin 3.3 Albumin/Globulin Ratio 1.3 Urine Color Urine Clarity Urine pH Ur Specific [place] Urine Protein Urine Glucose (UA) Urine Ketones Urine Blood Urine Nitrate Urine Bilirubin Urine Urobilinogen Ur Leukocyte Esterase Urine WBC (Auto) Urine RBC (Auto) Ur Squamous Epith Cells Urine Opiates Screen Urine Methadone Screen Ur Barbiturates Screen Ur Phencyclidine Scrn Ur Amphetamines Screen U Benzodiazepines Scrn U Oth Cocaine Metabols U Cannabinoids Screen Alcohol, Quantitative 200 H Assessment & Plan (1) Alcohol intoxication Assessment and Plan: Self reported last drink 2 days prior to presentation Serum alcohol 200 Aspiration/Seizure/Fall precautions Elevate HOB 30 degrees Tachy - however no telemetry beds available in hospital Imaging: US performed on 12/28/17: * Hepatomegaly with diffuse increased echogenicity of the liver likely represent hepatic steatosis. Suspicious for 5 millimeter nonobstructing calculus at the mid to upper pole of the right kidney. No evidence of hydronephrosis. Medications: NS 75cc/hr Librium Taper Clonidine 0.1mg PO Q4H PRN for elevated BP Folic Acid/MV/Thiamine Hydroxyzine 25mg PO QD PRN for anxiety Trazodone 25mg PO HS PRN for insomnia Status: Acute Priority: High (2) Prophylactic measure Assessment and Plan: GI prophylaxis not indicated Lovenox 40mg SC QD SCDs Clear Liquid Diet Status: Acute Priority: Low
[2018-01-11] MEDS ORDERED: Thiamine 100 mg/ml Inj IM ONE (08:58)
[2018-01-11] MEDS: Sodium Chloride 0.9% 1,000 ML IV SCH ×2 (10:00→22:43)
[2018-01-11] MEDS ORDERED: Enoxaparin 40 mg Syringe ONE (10:11)
[2018-01-11] MEDS ORDERED: Sodium Chloride 0.9% 1,000 ML ONE (10:11)
[2018-01-11] MEDS: Enoxaparin 40 mg Syringe SC SCH (10:17)
[2018-01-11] MEDS: Multiple Vitamins Tab PO SCH (12:10)
--- NOTE | 2018-01-11 12:52 | RAD ---
PROCEDURE: CHEST RADIOGRAPH, 1 VIEW HISTORY: Detox/Psy COMPARISON: 04/16/2017. FINDINGS: LUNGS: The lungs are well inflated and clear. PLEURA: No pneumothorax or pleural fluid seen. CARDIOVASCULAR: Normal. OSSEOUS STRUCTURES: No significant abnormalities. VISUALIZED UPPER ABDOMEN: Normal. OTHER FINDINGS: None. IMPRESSION: No active pulmonary disease.
[2018-01-11] MEDS: traZODone 25 mg Tab PO PRN (21:38)
[2018-01-12 00:52] VITALS: RESP 20
[2018-01-12 08:36] LABS: BASO % 0.7 % (0.0-2.0); EOS # 0.1 K/uL (0.0-0.7); EOS % 1.7 % (0.0-4.0); HEMOGLOBIN 13.4 g/dL (12.0-18.0); LYMPH # 1.2 K/uL (1.0-4.3); LYMPH % 20.3 % (20.0-40.0); MEAN CELL VOLUME 94.6 fL (80.0-94.0); MEAN CORPUSCULAR HEMOGLOBIN 33.2 pg (27.0-31.0); MEAN CORPUSCULAR HGB CONC 35.1 g/dL (33.0-37.0); MEAN PLATELET VOLUME 7.6 fL (7.2-11.7); MONO # 0.4 K/uL (0.0-0.8); NEUT # 4.3 K/uL (1.8-7.0); NEUT % 71.3 % (50.0-75.0); RBC 4.04 Mil/uL (4.40-5.90); RED CELL DISTRIBUTION WIDTH 14.6 % (11.5-14.5)
[2018-01-12 08:49] LABS: ALB/GLOB RATIO 1.2 (1.0-2.1); ALBUMIN 4.1 g/dL (3.5-5.0); ALT/SGPT 68 U/L (21-72); AST/SGOT 64 U/L (17-59); BLOOD UREA NITROGEN 4 mg/dL (9-20); CALCIUM 8.8 mg/dl (8.6-10.4); GFR AFRICAN-AMERICAN > 60; GFR NON-AFRICAN AMERICAN > 60
--- NOTE | 2018-01-12 09:21 | CP.PCM.PN ---
Subjective - Date & Time of Evaluation Date of Evaluation: 01/12/18 Time of Evaluation: 07:00 - Subjective Subjective: PGY2 - Medicine note for Dr. Kenny Patient seen and examined at bedside. Patient says he feels very shaky. Patient also says he has a mild frontal headache and nausea. Patient has had no vomiting. Patient admits to two episodes of watery diarrhea. Patient denies any chest pain or shortness of breath. Patient admits that overnight he had some visual hallucinations. He says he saw "something weird", but would not provide any further details. Objective - Vital Signs/Intake and Output Vital Signs (last 24 hours): Temp Pulse Resp BP Pulse Ox 98.1 F 95 H 20 135/90 94 L 01/12/18 08:23 01/12/18 08:23 01/12/18 08:23 01/12/18 08:23 01/12/18 08:23 Intake and Output: 01/12/18 01/12/18 06:59 18:59 Intake Total 1200 Output Total 500 Balance 700 - Medications Medications: Current Medications Chlordiazepoxide (Librium) 25 mg PO Q8H [facility] Stop: 01/13/18 01:16 Chlordiazepoxide (Librium) 25 mg PO Q12H [facility] Stop: 01/13/18 21:16 Chlordiazepoxide (Librium) 25 mg PO Q24H [facility] Stop: 01/14/18 09:16 Clonidine HCl (Catapres) 0.1 mg PO Q4H PRN PRN Reason: Systolic Blood Pressure Enoxaparin Sodium (Lovenox) 40 mg SC DAILY [facility] Last Admin: 01/11/18 10:17 Dose: 40 mg Folic Acid (Folic Acid) 1 mg PO DAILY [facility] Last Admin: 01/11/18 10:15 Dose: 1 mg Gabapentin (Neurontin) 300 mg PO TID [facility] Last Admin: 01/11/18 17:26 Dose: 300 mg Hydroxyzine HCl (Atarax) 25 mg PO DAILY PRN PRN Reason: Anxiety Sodium Chloride (Sodium Chloride 0.9%) 1,000 mls @ 75 mls/hr IV .[id number] [facility] Last Admin: 01/11/18 22:43 Dose: Not Given Lorazepam (Ativan) 1 mg IVP Q6H PRN PRN Reason: Seizure activity Multivitamins (Hexavitamin) 1 tab PO DAILY [facility] Last Admin: 01/11/18 12:10 Dose: 1 tab Ondansetron HCl (Zofran Inj) 4 mg IVP Q12H PRN PRN Reason: Nausea/Vomiting Last Admin: 01/12/18 08:42 Dose: 4 mg Thiamine HCl (Vitamin B1 Tab) 100 mg PO DAILY [facility] Trazodone HCl (Desyrel) 25 mg PO HS PRN PRN Reason: Insomnia Last Admin: 01/11/18 21:38 Dose: 25 mg - Labs Labs: 01/12/18 08:28 01/12/18 08:28 - Additional Findings Additional findings: - Constitutional Appears: No Acute Distress, Unkempt, Older Than Stated Age - Head Exam Head Exam: ATRAUMATIC, NORMAL INSPECTION - Eye Exam Eye Exam: EOMI Pupil Exam: PERRL - ENT Exam ENT Exam: Mucous Membranes Moist - Neck Exam Neck exam: Positive for: Normal Inspection - Respiratory Exam Respiratory Exam: Clear to Auscultation Bilateral, NORMAL BREATHING PATTERN. absent: Rales, Rhonchi, Wheezes - Cardiovascular Exam Cardiovascular Exam: Tachycardia, REGULAR RHYTHM, +S1, +S2. absent: JVD, Systolic Murmur - GI/Abdominal Exam GI & Abdominal Exam: Normal Bowel Sounds, Soft, Tenderness. absent: Distended, Firm, Guarding - Extremities Exam Extremities exam: Positive for: normal inspection. Negative for: calf tenderness - Neurological Exam Neurological exam: Alert, Oriented x3 - Psychiatric Exam Psychiatric exam: Anxious - Skin Skin Exam: Normal Color, Urticaria, Warm Assessment and Plan - Assessment and Plan (Free Text) Assessment: (1) Alcohol abuse Assessment and Plan: Self reported last drink 2 days prior to presentation Serum alcohol 200 Aspiration/Seizure/Fall precautions Elevate HOB 30 degrees admitted to tele Imaging: US performed on 12/28/17: * Hepatomegaly with diffuse increased echogenicity of the liver likely represent hepatic steatosis. Suspicious for 5 millimeter nonobstructing calculus at the mid to upper pole of the right kidney. No evidence of hydronephrosis. Medications: Librium Taper Clonidine 0.1mg PO Q4H PRN for elevated BP Ativan 2mg q4h prn Folic Acid/MV/Thiamine Hydroxyzine 25mg PO QD PRN for anxiety Trazodone 25mg PO HS PRN for insomnia Status: Acute Priority: High (2) Diarrhea Assessment and Plan: secondary to withdrawal advance diet as tolerated no Imodium to be given Status: Acute Priority: Low (2) Prophylactic measure Assessment and Plan: GI prophylaxis not indicated Lovenox 40mg SC QD SCDs Clear Liquid Diet Status: Acute Priority: Low
[2018-01-12] MEDS: Enoxaparin 40 mg Syringe SC SCH (10:26)
[2018-01-12] MEDS: Multiple Vitamins Tab PO SCH (10:26)
[2018-01-12] MEDS: Sodium Chloride 0.9% 1,000 ML IV SCH ×2 (13:17→16:34)
[2018-01-12] MEDS: traZODone 25 mg Tab PO PRN (23:46)
[2018-01-13 01:19] VITALS: O2SAT 97
--- NOTE | 2018-01-13 07:01 | CP.PCM.PN ---
Subjective - Date & Time of Evaluation Date of Evaluation: 01/13/18 Time of Evaluation: 07:00 - Subjective Subjective: PGY2- Progress Note for Dr. Kenny Patient seen and examined at bedside and in no acute distress. Patient says he feels better than yesterday. Patient had a normal bowel movement today and says he is very hungry. Patient feels less shaky. Patient says he has not had any more hallucinations. Patient admits to a mild frontal headache. Patient denies any chest pain, shortness of breath, nausea, or vomiting. Objective - Vital Signs/Intake and Output Vital Signs (last 24 hours): Temp Pulse Resp BP Pulse Ox 98 F 68 20 115/80 97 01/13/18 04:55 01/13/18 05:04 01/13/18 04:55 01/13/18 04:55 01/13/18 04:55 Intake and Output: 01/13/18 01/13/18 06:59 18:59 Intake Total 1760 Output Total 800 Balance 960 - Medications Medications: Current Medications Chlordiazepoxide (Librium) 25 mg PO Q12H [facility] Stop: 01/13/18 21:16 Chlordiazepoxide (Librium) 25 mg PO Q24H [facility] Stop: 01/14/18 09:16 Clonidine HCl (Catapres) 0.1 mg PO Q4H PRN PRN Reason: Systolic Blood Pressure Enoxaparin Sodium (Lovenox) 40 mg SC DAILY [facility] Last Admin: 01/12/18 10:26 Dose: 40 mg Folic Acid (Folic Acid) 1 mg PO DAILY [facility] Last Admin: 01/12/18 10:26 Dose: 1 mg Gabapentin (Neurontin) 300 mg PO TID [facility] Last Admin: 01/12/18 19:37 Dose: 300 mg Hydroxyzine HCl (Atarax) 25 mg PO DAILY PRN PRN Reason: Anxiety Sodium Chloride (Sodium Chloride 0.9%) 1,000 mls @ 75 mls/hr IV .[id number] [facility] Last Admin: 01/12/18 16:34 Dose: 75 mls/hr Lorazepam (Ativan) 2 mg IVP Q4H PRN PRN Reason: Seizure activity Last Admin: 01/13/18 04:56 Dose: 2 mg Multivitamins (Hexavitamin) 1 tab PO DAILY [facility] Last Admin: 01/12/18 10:26 Dose: 1 tab Ondansetron HCl (Zofran Inj) 4 mg IVP Q12H PRN PRN Reason: Nausea/Vomiting Last Admin: 01/12/18 08:42 Dose: 4 mg Thiamine HCl (Vitamin B1 Tab) 100 mg PO DAILY [facility] Last Admin: 01/12/18 10:26 Dose: 100 mg Trazodone HCl (Desyrel) 25 mg PO HS PRN PRN Reason: Insomnia Last Admin: 01/12/18 23:46 Dose: 25 mg - Labs Labs: 01/12/18 08:28 01/12/18 08:28 - Additional Findings Additional findings: - Constitutional Appears: No Acute Distress, Unkempt, Older Than Stated Age - Head Exam Head Exam: ATRAUMATIC, NORMAL INSPECTION - Eye Exam Eye Exam: EOMI Pupil Exam: PERRL - ENT Exam ENT Exam: Mucous Membranes Moist - Neck Exam Neck exam: Positive for: Normal Inspection - Respiratory Exam Respiratory Exam: Clear to Auscultation Bilateral, NORMAL BREATHING PATTERN. absent: Rales, Rhonchi, Wheezes - Cardiovascular Exam Cardiovascular Exam: Tachycardia, REGULAR RHYTHM, +S1, +S2. absent: JVD, Systolic Murmur - GI/Abdominal Exam GI & Abdominal Exam: Normal Bowel Sounds, Soft, Tenderness. absent: Distended, Firm, Guarding - Extremities Exam Extremities exam: Positive for: normal inspection. Negative for: calf tenderness - Neurological Exam Neurological exam: Alert, Oriented x3 - Psychiatric Exam Psychiatric exam: Anxious - Skin Skin Exam: Normal Color, Urticaria, Warm Assessment and Plan - Assessment and Plan (Free Text) Assessment: (1) Alcohol abuse Assessment and Plan: Self reported last drink 2 days prior to presentation Serum alcohol 200 Aspiration/Seizure/Fall precautions Elevate HOB 30 degrees admitted to tele Imaging: US performed on 12/28/17: * Hepatomegaly with diffuse increased echogenicity of the liver likely represent hepatic steatosis. Suspicious for 5 millimeter nonobstructing calculus at the mid to upper pole of the right kidney. No evidence of hydronephrosis. Medications: Librium Taper Clonidine 0.1mg PO Q4H PRN for elevated BP Ativan 2mg q4h prn Folic Acid/MV/Thiamine Hydroxyzine 25mg PO QD PRN for anxiety Trazodone 25mg PO HS PRN for insomnia Status: Acute Priority: High (2) Diarrhea Assessment and Plan: secondary to withdrawal advance diet as tolerated no Imodium to be given Status: Acute Priority: Low (2) Prophylactic measure Assessment and Plan: GI prophylaxis not indicated Lovenox 40mg SC QD SCDs Clear Liquid Diet Status: Acute Priority: Low
[2018-01-13 07:41] LABS: BASO % 0.5 % (0.0-2.0); EOS # 0.1 K/uL (0.0-0.7); EOS % 2.3 % (0.0-4.0); LYMPH # 1.2 K/uL (1.0-4.3); LYMPH % 19.1 % (20.0-40.0); MEAN CELL VOLUME 95.6 fL (80.0-94.0); MEAN CORPUSCULAR HEMOGLOBIN 33.6 pg (27.0-31.0); MEAN CORPUSCULAR HGB CONC 35.1 g/dL (33.0-37.0); MEAN PLATELET VOLUME 7.7 fL (7.2-11.7); MONO # 0.3 K/uL (0.0-0.8); MONO % 4.2 % (0.0-10.0); NEUT # 4.5 K/uL (1.8-7.0); NEUT % 73.9 % (50.0-75.0); RBC 3.88 Mil/uL (4.40-5.90); RED CELL DISTRIBUTION WIDTH 14.3 % (11.5-14.5)
[2018-01-13 07:49] LABS: ALB/GLOB RATIO 1.3 (1.0-2.1); ALBUMIN 3.9 g/dL (3.5-5.0); ALT/SGPT 66 U/L (21-72); AST/SGOT 66 U/L (17-59); BLOOD UREA NITROGEN 3 mg/dL (9-20); CALCIUM 8.6 mg/dl (8.6-10.4); GFR AFRICAN-AMERICAN > 60; GFR NON-AFRICAN AMERICAN > 60
[2018-01-13 08:39] VITALS: BP 121/77; PULSE 80; TEMP 98
[2018-01-13] MEDS: Enoxaparin 40 mg Syringe SC SCH (09:46)
[2018-01-13] MEDS: Multiple Vitamins Tab PO SCH (09:46)
--- NOTE | 2018-01-13 11:06 | CP.PCM.DIS ---
<Lorin Ramírez - Last Filed: 01/13/18 11:01> Provider - Provider Date of Admission: 01/11/18 07:59 Attending physician: Daniel Kenny MD Time Spent in preparation of Discharge (in minutes): 35 Diagnosis - Discharge Diagnosis (1) Alcohol dependence Status: Chronic (2) Alcohol intoxication Status: Resolved Hospital Course - Lab Results Lab Results: Most Recent Lab Values WBC 6.0 K/uL (4.8-10.8) 01/13/18 07:11 RBC 3.88 Mil/uL (4.40-5.90) L 01/13/18 07:11 Hgb 13.0 g/dL (12.0-18.0) 01/13/18 07:11 Hct 37.1 % (35.0-51.0) 01/13/18 07:11 MCV 95.6 fL (80.0-94.0) H 01/13/18 07:11 MCH 33.6 pg (27.0-31.0) H 01/13/18 07:11 MCHC 35.1 g/dL (33.0-37.0) 01/13/18 07:11 RDW 14.3 % (11.5-14.5) 01/13/18 07:11 Plt Count 325 K/uL (130-400) 01/13/18 07:11 MPV 7.7 fL (7.2-11.7) 01/13/18 07:11 Neut % (Auto) 73.9 % (50.0-75.0) 01/13/18 07:11 Lymph % (Auto) 19.1 % (20.0-40.0) L 01/13/18 07:11 Harris % (Auto) 4.2 % (0.0-10.0) 01/13/18 07:11 Eos % (Auto) 2.3 % (0.0-4.0) 01/13/18 07:11 Baso % (Auto) 0.5 % (0.0-2.0) 01/13/18 07:11 Neut # (Auto) 4.5 K/uL (1.8-7.0) 01/13/18 07:11 Lymph # (Auto) 1.2 K/uL (1.0-4.3) 01/13/18 07:11 Harris # (Auto) 0.3 K/uL (0.0-0.8) 01/13/18 07:11 Eos # (Auto) 0.1 K/uL (0.0-0.7) 01/13/18 07:11 Baso # (Auto) 0.0 K/uL (0.0-0.2) 01/13/18 07:11 Sodium 140 mmol/L (132-148) 01/13/18 07:11 Potassium 3.8 mmol/L (3.6-5.2) 01/13/18 07:11 Chloride 104 mmol/L (98-107) 01/13/18 07:11 Carbon Dioxide 24 mmol/L (22-30) 01/13/18 07:11 Anion Gap 15 (10-20) 01/13/18 07:11 BUN 3 mg/dL (9-20) L 01/13/18 07:11 Creatinine 0.6 mg/dL (0.8-1.5) L 01/13/18 07:11 Est GFR ( Amer) > 60 01/13/18 07:11 Est GFR (Non-Af Amer) > 60 01/13/18 07:11 POC Glucose (mg/dL) 90 mg/dL (65-110) 01/12/18 06:48 Random Glucose 108 mg/dL (75-110) 01/13/18 07:11 Calcium 8.6 mg/dl (8.6-10.4) 01/13/18 07:11 Magnesium 1.7 mg/dL (1.6-2.3) 01/11/18 06:21 Total Bilirubin 1.0 mg/dL (0.2-1.3) 01/13/18 07:11 AST 66 U/L (17-59) H 01/13/18 07:11 ALT 66 U/L (21-72) 01/13/18 07:11 Alkaline Phosphatase 91 U/L (38-126) 01/13/18 07:11 Total Protein 6.9 g/dL (6.3-8.3) 01/13/18 07:11 Albumin 3.9 g/dL (3.5-5.0) 01/13/18 07:11 Globulin 3.0 gm/dL (2.2-3.9) 01/13/18 07:11 Albumin/Globulin Ratio 1.3 (1.0-2.1) 01/13/18 07:11 Urine Color Yellow (YELLOW) 01/11/18 06:13 Urine Clarity Clear (Clear) 01/11/18 06:13 Urine pH 6.0 (5.0-8.0) 01/11/18 06:13 Ur Specific [place] 1.025 (1.003-1.030) 01/11/18 06:13 Urine Protein Negative mg/dL (NEGATIVE) 01/11/18 06:13 Urine Glucose (UA) Negative mg/dL (Normal) 01/11/18 06:13 Urine Ketones Trace mg/dL (NEGATIVE) 01/11/18 06:13 Urine Blood Negative (NEGATIVE) 01/11/18 06:13 Urine Nitrate Negative (NEGATIVE) 01/11/18 06:13 Urine Bilirubin Negative (NEGATIVE) 01/11/18 06:13 Urine Urobilinogen 0.2 mg/dL (0.2-1.0) 01/11/18 06:13 Ur Leukocyte Esterase Negative Chang/uL (Negative) 01/11/18 06:13 Urine WBC (Auto) 1 /hpf (0-5) 01/11/18 06:13 Urine RBC (Auto) < 1 /hpf (0-3) 01/11/18 06:13 Ur Squamous Epith Cells < 1 /hpf (0-5) 01/11/18 06:13 Urine Opiates Screen Negative (NEGATIVE) 01/11/18 06:13 Urine Methadone Screen Negative (NEGATIVE) 01/11/18 06:13 Ur Barbiturates Screen Negative (NEGATIVE) 01/11/18 06:13 Ur Phencyclidine Scrn Negative (NEGATIVE) 01/11/18 06:13 Ur Amphetamines Screen Negative (NEGATIVE) 01/11/18 06:13 U Benzodiazepines Scrn Positive (NEGATIVE) 01/11/18 06:13 U Oth Cocaine Metabols Negative (NEGATIVE) 01/11/18 06:13 U Cannabinoids Screen Negative (NEGATIVE) 01/11/18 06:13 Alcohol, Quantitative 200 mg/dl (0-10) H 01/11/18 06:21 - Hospital Course Hospital Course: "Mr Charles Marr is a 47 year old male with a PMHx of polysubstance abuse who presents to the ER because he was found in the prone position in [facility]. He stated his last drink was 01/09/2018 in the AM - he states he drinks about a couple of pints of vodka daily. He currently complained of hallucinations - stating he thinks he see's things aren't there. He's been in the ER numerous times for alcohol abuse and has been in our detox unit in the past. He admits to right-sided abdominal pain. He denies emesis, seizures, fever , chest pain. " Patient admitted for alcohol intoxication and dependence. Patient was given fluids, Librium Taper, Clonidine 0.1mg PO Q4H PRN for elevated BP, Folic Acid/MV /Thiamine, Hydroxyzine 25mg PO QD PRN for anxiety, and Trazodone 25mg PO HS PRN for insomnia. Patient was experiencing diarrhea secondary to withdrawal and was given a clear liquid diet. On the day of discharge patient switched to a regular diet which he tolerated well. Upon discharge patient had no complaints. Patient denied any hallucinations or SI. Patient was steady on his feet. Dr. De Jesus was spoken to about transferring to detox, but as patient was almost done with his Librium taper, he was deemed stable for discharge. Patient explained importance of not drinking alcohol and to follow up with an outpatient program. Patient to also follow up with the outpatient clinic for his medical care. This is a summary of the patient's hospital course, please see chart for full details. Discharge Exam - Head Exam Head Exam: ATRAUMATIC, NORMAL INSPECTION - Eye Exam Eye Exam: EOMI, Normal appearance - ENT Exam ENT Exam: Mucous Membranes Moist - Neck Exam Neck exam: Full Rom - Respiratory Exam Respiratory Exam: Clear to PA & Lateral, NORMAL BREATHING PATTERN, UNREMARKABLE - Cardiovascular Exam Cardiovascular Exam: REGULAR RHYTHM, RRR, +S1, +S2 - GI/Abdominal Exam GI & Abdominal Exam: Normal Bowel Sounds, Soft. absent: Tenderness - Extremities Exam Extremities exam: normal inspection - Neurological Exam Neurological exam: Alert, Oriented x3 - Psychiatric Exam Psychiatric exam: Normal Affect, Normal Mood - Skin Skin Exam: Intact, Normal Color, Warm Discharge Plan - Follow Up Plan Condition: STABLE Disposition: HOME/ ROUTINE Instructions: Heart Healthy Diet, Alcohol Abuse and Alcoholism (DC), Alcohol Intoxication (DC), Alcohol Use Disorder (DC) Additional Instructions: Patient stable for discharge as per Dr. Kenny and Dr. De Jesus. Patient explained importance of not drinking any more alcohol and provided with information for outpatient programs. Patient to follow up with the clinic at [facility] ([phone]) or [place] ) Patient explained instructions who understands and agrees. Referrals: [facility] [Provider Group] <Daniel Kenny - Last Filed: 01/13/18 19:30> Provider - Provider Date of Admission: 01/11/18 07:59 Attending physician: Daniel Kenny MD Time Spent in preparation of Discharge (in minutes): 40 Hospital Course - Lab Results Lab Results: Most Recent Lab Values WBC 6.0 K/uL (4.8-10.8) 01/13/18 07:11 RBC 3.88 Mil/uL (4.40-5.90) L 01/13/18 07:11 Hgb 13.0 g/dL (12.0-18.0) 01/13/18 07:11 Hct 37.1 % (35.0-51.0) 01/13/18 07:11 MCV 95.6 fL (80.0-94.0) H 01/13/18 07:11 MCH 33.6 pg (27.0-31.0) H 01/13/18 07:11 MCHC 35.1 g/dL (33.0-37.0) 01/13/18 07:11 RDW 14.3 % (11.5-14.5) 01/13/18 07:11 Plt Count 325 K/uL (130-400) 01/13/18 07:11 MPV 7.7 fL (7.2-11.7) 01/13/18 07:11 Neut % (Auto) 73.9 % (50.0-75.0) 01/13/18 07:11 Lymph % (Auto) 19.1 % (20.0-40.0) L 01/13/18 07:11 Harris % (Auto) 4.2 % (0.0-10.0) 01/13/18 07:11 Eos % (Auto) 2.3 % (0.0-4.0) 01/13/18 07:11 Baso % (Auto) 0.5 % (0.0-2.0) 01/13/18 07:11 Neut # (Auto) 4.5 K/uL (1.8-7.0) 01/13/18 07:11 Lymph # (Auto) 1.2 K/uL (1.0-4.3) 01/13/18 07:11 Harris # (Auto) 0.3 K/uL (0.0-0.8) 01/13/18 07:11 Eos # (Auto) 0.1 K/uL (0.0-0.7) 01/13/18 07:11 Baso # (Auto) 0.0 K/uL (0.0-0.2) 01/13/18 07:11 Sodium 140 mmol/L (132-148) 01/13/18 07:11 Potassium 3.8 mmol/L (3.6-5.2) 01/13/18 07:11 Chloride 104 mmol/L (98-107) 01/13/18 07:11 Carbon Dioxide 24 mmol/L (22-30) 01/13/18 07:11 Anion Gap 15 (10-20) 01/13/18 07:11 BUN 3 mg/dL (9-20) L 01/13/18 07:11 Creatinine 0.6 mg/dL (0.8-1.5) L 01/13/18 07:11 Est GFR ( Amer) > 60 01/13/18 07:11 Est GFR (Non-Af Amer) > 60 01/13/18 07:11 POC Glucose (mg/dL) 90 mg/dL (65-110) 01/12/18 06:48 Random Glucose 108 mg/dL (75-110) 01/13/18 07:11 Calcium 8.6 mg/dl (8.6-10.4) 01/13/18 07:11 Magnesium 1.7 mg/dL (1.6-2.3) 01/11/18 06:21 Total Bilirubin 1.0 mg/dL (0.2-1.3) 01/13/18 07:11 AST 66 U/L (17-59) H 01/13/18 07:11 ALT 66 U/L (21-72) 01/13/18 07:11 Alkaline Phosphatase 91 U/L (38-126) 01/13/18 07:11 Total Protein 6.9 g/dL (6.3-8.3) 01/13/18 07:11 Albumin 3.9 g/dL (3.5-5.0) 01/13/18 07:11 Globulin 3.0 gm/dL (2.2-3.9) 01/13/18 07:11 Albumin/Globulin Ratio 1.3 (1.0-2.1) 01/13/18 07:11 Urine Color Yellow (YELLOW) 01/11/18 06:13 Urine Clarity Clear (Clear) 01/11/18 06:13 Urine pH 6.0 (5.0-8.0) 01/11/18 06:13 Ur Specific [place] 1.025 (1.003-1.030) 01/11/18 06:13 Urine Protein Negative mg/dL (NEGATIVE) 01/11/18 06:13 Urine Glucose (UA) Negative mg/dL (Normal) 01/11/18 06:13 Urine Ketones Trace mg/dL (NEGATIVE) 01/11/18 06:13 Urine Blood Negative (NEGATIVE) 01/11/18 06:13 Urine Nitrate Negative (NEGATIVE) 01/11/18 06:13 Urine Bilirubin Negative (NEGATIVE) 01/11/18 06:13 Urine Urobilinogen 0.2 mg/dL (0.2-1.0) 01/11/18 06:13 Ur Leukocyte Esterase Negative Chang/uL (Negative) 01/11/18 06:13 Urine WBC (Auto) 1 /hpf (0-5) 01/11/18 06:13 Urine RBC (Auto) < 1 /hpf (0-3) 01/11/18 06:13 Ur Squamous Epith Cells < 1 /hpf (0-5) 01/11/18 06:13 Urine Opiates Screen Negative (NEGATIVE) 01/11/18 06:13 Urine Methadone Screen Negative (NEGATIVE) 01/11/18 06:13 Ur Barbiturates Screen Negative (NEGATIVE) 01/11/18 06:13 Ur Phencyclidine Scrn Negative (NEGATIVE) 01/11/18 06:13 Ur Amphetamines Screen Negative (NEGATIVE) 01/11/18 06:13 U Benzodiazepines Scrn Positive (NEGATIVE) 01/11/18 06:13 U Oth Cocaine Metabols Negative (NEGATIVE) 01/11/18 06:13 U Cannabinoids Screen Negative (NEGATIVE) 01/11/18 06:13 Alcohol, Quantitative 200 mg/dl (0-10) H 01/11/18 06:21 Attending/Attestation - Attestation I have personally seen and examined this patient.: Yes I have fully participated in the care of the patient.: Yes I have reviewed all pertinent clinical information, including history, physical exam and plan: Yes Notes (Text): 01/13/18 19:28 Patient was seen and examined at 9 AM Exam, assessment and plan, and discharge instructions were gone over with resident Dr. Ramírez. Patient's visual hallucination of seeing a "fireball" has resolved. I walked with patient and there were no issues with gait His tachycardia resolved His diarrhea has resolved Tolerating diet His elevated LFTs resolved He was provided with a list of AA meetings in the area as well as outpatient treatment programs by Psychiatry Dr. De Jesus and was encouraged at length to attend by myself. Daniel Kenny D.O.
--- NOTE | 2018-01-13 12:20 | CARD ---
APPROVED REPORT EKG Measurement Heart [id number] VT [id number] <Conclusion> Sinus tachycardia Nonspecific T wave abnormality Abnormal ECG
== END 2018-01-13 13:46 | disposition home or self-care (01) | DRG 751 ==
LOC: C.ER 20:43 → C.9E 01-11 07:59 → C.3T 01-11 08:46 → C.9E 01-11 09:39 → C.6T 01-11 13:08
PROVIDERS: ADMIT Family Medicine; ATTEND Family Medicine
PROC: HZ2ZZZZ Detoxification Services for Substance Abuse Treatment (ICD-10-PCS; principal; 2018-01-11)
DX: F10.230 Alcohol dependence with withdrawal, uncomplicated (principal); F10.220 Alcohol dependence with intoxication, uncomplicated; E11.9 Type 2 diabetes mellitus without complications; Y90.7 Blood alcohol level of 200-239 mg/100 ml; F17.210 Nicotine dependence, cigarettes, uncomplicated; F41.9 Anxiety disorder, unspecified; G47.00 Insomnia, unspecified; K76.0 Fatty (change of) liver, not elsewhere classified; J45.909 Unspecified asthma, uncomplicated

== ENCOUNTER 2018-03-14 00:06 | Emergency (ER) | payer SELFPAY ==
[2018-03-14 00:06] VITALS: BMI 29.2
[2018-03-14 00:13] VITALS: TEMP 98.4; O2SAT 96
--- NOTE | 2018-03-14 00:16 | C.PDOC ---
History Of Present Illness Patient brought in via EMS after being found intoxicated in public. Denies physical complaints at this time. Time Seen by Provider: 03/14/18 00:15 Chief Complaint (Nursing): Substance Abuse History Per: Patient, EMS History/Exam Limitations: no limitations Onset/Duration Of Symptoms: Hrs Current Symptoms Are (Timing): Still Present Suicide/Self Injury Attempted (Context): None Modifying Factor(s): Alcohol Severity: None Pain Scale Rating Of: 0 Associated Symptoms: denies: Depression, Suicidal Thoughts Involuntary Hold By: None Recent travel outside of the [place]: No Past Medical History Reviewed: Historical Data, Nursing Documentation, Vital Signs Vital Signs: Last Vital Signs Temp 98.4 F 03/14/18 00:08 Pulse 90 03/14/18 03:52 Resp 16 03/14/18 03:52 BP 118/74 03/14/18 03:52 Pulse Ox 96 03/14/18 03:52 - Medical History PMH: Asthma, Depression Denies: Diabetes, Hepatitis, HIV, HTN, Chronic Kidney Disease, Seizures, Sexually Transmitted Disease - [facility] Procedures DETOXIFICATION SERVICES FOR SUBSTANCE ABUSE TREATMENT (01/11/18) GROUP JOURNEYMAN PATTERNMAKER FOR SUBSTANCE ABUSE TREATMENT, PSYCHOEDUCATION (12/28/17) GROUP JOURNEYMAN PATTERNMAKER FOR SUBSTANCE ABUSE, COGNITIVE BEHAVIORAL (12/28/17) GROUP PSYCHOTHERAPY (12/28/17) INDIV PSYCHOTHERAPY FOR SUBSTANCE ABUSE TREATMENT, SUPPORT (12/28/17) INDIV PSYCHOTHERAPY FOR SUBSTANCE ABUSE, COGNITIV BEHAVIORAL (12/28/17) INDIV PSYCHOTHERAPY FOR SUBSTANCE ABUSE, PSYCHOEDUCATION (12/28/17) INDIVIDUAL PSYCHOTHERAPY, COGNITIVE-BEHAVIORAL (12/28/17) INDIVIDUAL PSYCHOTHERAPY, SUPPORTIVE (12/28/17) MEDICATION MANAGEMENT (12/13/15) Family History: States: Unknown Family Hx - Social History Hx Tobacco Use: Yes Hx Alcohol Use: Yes Hx Substance Use: Yes (ETOH, Heroin) - Immunization History Hx Tetanus Toxoid Vaccination: No Hx Influenza Vaccination: No Hx Pneumococcal Vaccination: No Review Of Systems Constitutional: Negative for: Fever, Chills Cardiovascular: Negative for: Chest Pain, Palpitations Respiratory: Negative for: Cough, Shortness of Breath Gastrointestinal: Negative for: Nausea, Vomiting, Abdominal Pain Physical Exam - Physical Exam Appears: Non-toxic, Other (ETOH on breath, no sign of injury) Skin: Warm, Dry Head: Normacephalic Oral Mucosa: Moist Chest: Symmetrical, No Tenderness Cardiovascular: Rhythm Regular Respiratory: No Rales, No Rhonchi, No Wheezing Gastrointestinal/Abdominal: Soft, No Tenderness Neurological/Psych: Oriented x3 ED Course And Treatment O2 Sat by Pulse Oximetry: 96 (Room air) Pulse Ox Interpretation: Normal Reevaluation Time: 04:35 Reassessment Condition: Improved Disposition Counseled Patient/Family Regarding: Studies Performed, Diagnosis, Need For Followup - Disposition Referrals: [facility] [Outside] Disposition: HOME/ ROUTINE Disposition Time: 00:15 Condition: FAIR Instructions: Alcohol Abuse and Alcoholism (DC) Forms: [email or web address] (Bel[place]ian) - Clinical Impression Clinical Impression: Alcohol intoxication, Alcohol abuse - Scribe Statement The provider has reviewed the documentation as recorded by the Scribjean Brush All medical record entries made by the Scribe were at my direction and personally dictated by me. I have reviewed the chart and agree that the record accurately reflects my personal performance of the history, physical exam, medical decision making, and the department course for this patient. I have also personally directed, reviewed, and agree with the discharge instructions and disposition.
[2018-03-14 03:52] VITALS: BP 118/74; PULSE 90; RESP 16
== END 2018-03-14 05:31 | disposition home or self-care (01) ==
LOC: C.ER 00:06
DX: F10.129 Alcohol abuse with intoxication, unspecified (principal); Z72.0 Tobacco use

== ENCOUNTER 2018-03-27 18:26 | Emergency (ER) | payer SELFPAY ==
[2018-03-27 18:26] VITALS: BMI 29.2
[2018-03-27 18:35] VITALS: RESP 20
--- NOTE | 2018-03-27 19:56 | C.PDOC ---
History Of Present Illness 47 y/o male, with history of substance abuse, presents to ED with alcohol intoxication. Pt is requesting a place to stay. Otherwise, denies any active physical complaints at this time. Time Seen by Provider: 03/27/18 19:56 Chief Complaint (Nursing): Substance Abuse History Per: Patient History/Exam Limitations: no limitations Onset/Duration Of Symptoms: Gradual Current Symptoms Are (Timing): Still Present Suicide/Self Injury Attempted (Context): None Modifying Factor(s): Alcohol Severity: None Pain Scale Rating Of: 0 Associated Symptoms: denies: Paranoia, Suicidal Thoughts, Suicidal Plan Involuntary Hold By: None Recent travel outside of the [place]: No Additional History Per: Prior Records Past Medical History Reviewed: Historical Data, Nursing Documentation, Vital Signs Vital Signs: Last Vital Signs Temp 97.7 F 03/28/18 02:20 Pulse 81 03/28/18 02:20 Resp 20 03/28/18 02:20 BP 116/62 03/28/18 02:20 Pulse Ox 96 03/28/18 02:20 - Medical History PMH: Asthma, Depression Denies: Diabetes, Hepatitis, HIV, HTN, Chronic Kidney Disease, Seizures, Sexually Transmitted Disease - [facility] Procedures DETOXIFICATION SERVICES FOR SUBSTANCE ABUSE TREATMENT (01/11/18) GROUP ASSISTANT FEDERAL PUBLIC DEFENDER FOR SUBSTANCE ABUSE TREATMENT, PSYCHOEDUCATION (12/28/17) GROUP ASSISTANT FEDERAL PUBLIC DEFENDER FOR SUBSTANCE ABUSE, COGNITIVE BEHAVIORAL (12/28/17) GROUP PSYCHOTHERAPY (12/28/17) INDIV PSYCHOTHERAPY FOR SUBSTANCE ABUSE TREATMENT, SUPPORT (12/28/17) INDIV PSYCHOTHERAPY FOR SUBSTANCE ABUSE, COGNITIV BEHAVIORAL (12/28/17) INDIV PSYCHOTHERAPY FOR SUBSTANCE ABUSE, PSYCHOEDUCATION (12/28/17) INDIVIDUAL PSYCHOTHERAPY, COGNITIVE-BEHAVIORAL (12/28/17) INDIVIDUAL PSYCHOTHERAPY, SUPPORTIVE (12/28/17) MEDICATION MANAGEMENT (12/13/15) Family History: States: Unknown Family Hx - Social History Hx Tobacco Use: Yes Hx Alcohol Use: Yes Hx Substance Use: Yes (ETOH, Heroin) - Immunization History Hx Tetanus Toxoid Vaccination: No Hx Influenza Vaccination: No Hx Pneumococcal Vaccination: No Review Of Systems Except As Marked, All Systems Reviewed And Found Negative. Constitutional: Negative for: Fever, Chills Cardiovascular: Negative for: Chest Pain, Palpitations, Light Headedness Respiratory: Negative for: Cough, Shortness of Breath Gastrointestinal: Negative for: Nausea, Vomiting, Abdominal Pain Genitourinary: Negative for: Dysuria, Frequency Skin: Negative for: Rash, Lesions Neurological: Negative for: Weakness, Numbness, Headache, Dizziness Psych: Negative for: Psychosis, Suicidal ideation Physical Exam - Physical Exam Appears: Non-toxic, No Acute Distress Skin: Warm, Dry Head: Normacephalic Eye(s): bilateral: Normal Inspection Oral Mucosa: Moist, Other (EtOH on breath) Neck: Supple Chest: Symmetrical Cardiovascular: Rhythm Regular Extremity: Bilateral: Atraumatic Neurological/Psych: Oriented x3 ED Course And Treatment O2 Sat by Pulse Oximetry: 98 (on RA) Pulse Ox Interpretation: Normal Reevaluation Time: 04:51 Reassessment Condition: Improved Disposition Counseled Patient/Family Regarding: Studies Performed, Diagnosis, Need For Followup - Disposition Referrals: [facility] [Outside] Disposition: HOME/ ROUTINE Disposition Time: 19:56 Condition: FAIR Instructions: Alcohol Abuse and Alcoholism (DC) Forms: [employer] (Argentine) - Clinical Impression Clinical Impression: Alcohol intoxication, Alcohol dependence - Scribe Statement The provider has reviewed the documentation as recorded by the Scribe Chava Kenny All medical record entries made by the Scribe were at my direction and personally dictated by me. I have reviewed the chart and agree that the record accurately reflects my personal performance of the history, physical exam, medical decision making, and the department course for this patient. I have also personally directed, reviewed, and agree with the discharge instructions and disposition.
[2018-03-28 04:52] VITALS: O2SAT 98
[2018-03-28 04:54] VITALS: BP 122/77; PULSE 83; TEMP 98.1
== END 2018-03-28 04:54 | disposition home or self-care (01) ==
LOC: C.ER 18:26
DX: F10.229 Alcohol dependence with intoxication, unspecified (principal); Z72.0 Tobacco use

== ENCOUNTER 2018-04-23 08:32 | Emergency (ER) | payer SELFPAY ==
--- NOTE | 2018-04-23 08:47 | C.PDOC ---
History Of Present Illness 47 y/o male is brought in by EMS for public intoxication. Pt was found on the street. Unable to get further history due to state of intoxication. Time Seen by Provider: 04/23/18 08:37 Chief Complaint (Nursing): Substance Abuse History Per: Patient History/Exam Limitations: intoxication Past Medical History Reviewed: Historical Data, Nursing Documentation, Vital Signs Family History: States: Unknown Family Hx Review Of Systems Review Of Systems: ROS cannot be obtained secondary to pt's inabilty to answer questions. Physical Exam - Physical Exam Appears: Non-toxic, No Acute Distress Skin: Normal Color, Warm, Dry Head: Atraumatic, Normacephalic Eye(s): bilateral: Other (opens eyes to painful stimulus) Neck: Normal ROM, Supple Cardiovascular: Rhythm Regular, No Murmur Respiratory: Normal Breath Sounds, No Rales, No Rhonchi, No Wheezing Gastrointestinal/Abdominal: Soft, No Tenderness Extremity: Normal ROM, No Deformity Extremity: Bilateral: Atraumatic (No signs of injury), Normal ROM Neurological/Psych: Other (responsive to painful stimuli) Medical Decision Making Medical Decision Makin:35 On re-eval, pt is awake, alert, and oriented x3. [place] the streets, and drinks vodka daily. Notes he used to stay with a women and their 8 year old child but the women left with their child to [place]. Notes he went to [place] to look for them but couldn't fin them and has been binge drinking since then. Disposition - Disposition Disposition: HOME/ ROUTINE Disposition Time: 15:40 Condition: STABLE Instructions: Alcohol Abuse and Alcoholism (DC) Forms: Gen Discharge Inst Swedish - POA Present On Arrival: None - Clinical Impression Clinical Impression: Alcohol abuse - Scribe Statement The provider has reviewed the documentation as recorded by the Scribe Chava Kenny All medical record entries made by the Arminibjean were at my direction and personally dictated by me. I have reviewed the chart and agree that the record accurately reflects my personal performance of the history, physical exam, medical decision making, and the department course for this patient. I have also personally directed, reviewed, and agree with the discharge instructions and disposition.
[2018-04-23 15:10] VITALS: BP 113/74; PULSE 92; RESP 18; TEMP 98; O2SAT 96
== END 2018-04-23 16:13 | disposition home or self-care (01) ==
LOC: EDBD 08:32 → C.ER 08:32 → MERGE 08:32 → C.ER 16:13
DX: F10.10 Alcohol abuse, uncomplicated (principal); Y90.9 Presence of alcohol in blood, level not specified

== ENCOUNTER 2018-04-24 19:39 | Emergency (ER) | payer SELFPAY ==
[2018-04-24 19:47] VITALS: BMI 30.2
[2018-04-24 19:49] VITALS: BP 146/80; PULSE 118; RESP 20; TEMP 98.3; O2SAT 94
--- NOTE | 2018-04-24 20:05 | C.PDOC ---
History Of Present Illness 47 year old male is brought to the ED by EMS for alcohol intoxication. As per EMS patient was picked up from [facility]. Patient admits to drinking alcohol today. Patient had multiple prior visits to the ED with same presentation. Patient denies SI/HI, hallucinations, weakness, numbness, trauma, injury, fall, other drug abuse. Time Seen by Provider: 04/24/18 20:05 Chief Complaint (Nursing): Substance Abuse History Per: Patient, EMS History/Exam Limitations: intoxication Onset/Duration Of Symptoms: Hrs Current Symptoms Are (Timing): Still Present Suicide/Self Injury Attempted (Context): None Modifying Factor(s): Alcohol Associated Symptoms: denies: Depression, Suicidal Thoughts, Suicidal Plan Involuntary Hold By: None Recent travel outside of the [place]: No Additional History Per: Patient, EMS Past Medical History Reviewed: Historical Data, Nursing Documentation, Vital Signs Vital Signs: Last Vital Signs Temp 98.3 F 04/24/18 19:48 Pulse 118 H 04/24/18 19:48 Resp 20 04/24/18 19:48 BP 146/80 04/24/18 19:48 Pulse Ox 94 L 04/24/18 19:48 - Medical History PMH: Asthma, Depression Denies: Diabetes, Hepatitis, HIV, HTN, Chronic Kidney Disease, Seizures, Sexually Transmitted Disease Surgical History: No Surg Hx - [facility] Procedures DETOXIFICATION SERVICES FOR SUBSTANCE ABUSE TREATMENT (01/11/18) GROUP ACOUSTICAL TILE CARPENTERS SUPERVISOR FOR SUBSTANCE ABUSE TREATMENT, PSYCHOEDUCATION (12/28/17) GROUP ACOUSTICAL TILE CARPENTERS SUPERVISOR FOR SUBSTANCE ABUSE, COGNITIVE BEHAVIORAL (12/28/17) GROUP PSYCHOTHERAPY (12/28/17) INDIV PSYCHOTHERAPY FOR SUBSTANCE ABUSE TREATMENT, SUPPORT (12/28/17) INDIV PSYCHOTHERAPY FOR SUBSTANCE ABUSE, COGNITIV BEHAVIORAL (12/28/17) INDIV PSYCHOTHERAPY FOR SUBSTANCE ABUSE, PSYCHOEDUCATION (12/28/17) INDIVIDUAL PSYCHOTHERAPY, COGNITIVE-BEHAVIORAL (12/28/17) INDIVIDUAL PSYCHOTHERAPY, SUPPORTIVE (12/28/17) MEDICATION MANAGEMENT (12/13/15) Family History: States: Unknown Family Hx - Social History Hx Tobacco Use: Yes Hx Alcohol Use: Yes Hx Substance Use: Yes (ETOH, Heroin) - Immunization History Hx Tetanus Toxoid Vaccination: No Hx Influenza Vaccination: No Hx Pneumococcal Vaccination: No Review Of Systems Constitutional: Negative for: Fever, Chills Cardiovascular: Negative for: Chest Pain Respiratory: Negative for: Shortness of Breath Gastrointestinal: Negative for: Nausea, Vomiting Skin: Negative for: Bruising Neurological: Negative for: Weakness, Numbness Psych: Negative for: Depression, Suicidal ideation Physical Exam - Physical Exam Appears: Non-toxic, No Acute Distress Skin: Normal Color, Warm, Dry Head: Atraumatic, Normacephalic Eye(s): bilateral: Normal Inspection Neck: Normal ROM, Supple Chest: Symmetrical Cardiovascular: Rhythm Regular Respiratory: Normal Breath Sounds, No Rales, No Rhonchi, No Wheezing Gastrointestinal/Abdominal: Soft, No Tenderness, No Guarding, No Rebound Extremity: Normal ROM, No Tenderness, No Swelling Neurological/Psych: Oriented x3, Normal Speech Gait: Steady ED Course And Treatment O2 Sat by Pulse Oximetry: 94 Progress - Re-Evaluation Re-evaluation Note: 04/24/18 21:49 PT CLEAR SPEECH AND THOUGHT, STEADY GAIT. AO3, NO S/S ACUTE INTOX. - Data Reviewed Data Reviewed: Old records Medical Decision Making Medical Decision Making: Plan: * Observe until clinically sober Disposition Counseled Patient/Family Regarding: Diagnosis, Need For Followup - Disposition [facility] [Outside] Disposition: HOME/ ROUTINE Disposition Time: 21:49 Condition: IMPROVED Instructions: Alcohol Abuse and Alcoholism (DC) Forms: [employer] (Panamanian) - Clinical Impression Clinical Impression: Alcohol intoxication - Scribe Statement The provider has reviewed the documentation as recorded by the Scribe Lorenzo Waters All medical record entries made by the Scribe were at my direction and personally dictated by me. I have reviewed the chart and agree that the record accurately reflects my personal performance of the history, physical exam, medical decision making, and the department course for this patient. I have also personally directed, reviewed, and agree with the discharge instructions and disposition.
== END 2018-04-24 22:03 | disposition home or self-care (01) ==
LOC: C.ER 19:39
DX: F10.129 Alcohol abuse with intoxication, unspecified (principal)

== ENCOUNTER 2018-05-04 12:38 | Emergency (ER) | payer OTHER ==
[2018-05-04 12:39] VITALS: BMI 30.2
[2018-05-04 13:49] VITALS: TEMP 98.4
[2018-05-04 16:19] VITALS: O2SAT 95
[2018-05-04 17:55] VITALS: BP 109/60; PULSE 87; RESP 18
--- NOTE | 2018-05-04 18:04 | C.PDOC ---
History Of Present Illness 48-year-old male, is brought to the emergency department by ambulance with complaints of public intoxication. No other complaints at this time. Chief Complaint (Nursing): Substance Abuse History Per: Patient History/Exam Limitations: no limitations Past Medical History Reviewed: Historical Data, Nursing Documentation, Vital Signs Vital Signs: Last Vital Signs Temp 98.4 F 05/04/18 13:48 Pulse 87 05/04/18 17:54 Resp 18 05/04/18 17:54 BP 109/60 05/04/18 17:54 Pulse Ox 95 05/04/18 17:54 - Medical History PMH: Asthma, Depression Denies: Diabetes, Hepatitis, HIV, HTN, Chronic Kidney Disease, Seizures, Sexually Transmitted Disease - [facility] Procedures DETOXIFICATION SERVICES FOR SUBSTANCE ABUSE TREATMENT (01/11/18) GROUP HEAD BANQUET WAITER/WAITRESS FOR SUBSTANCE ABUSE TREATMENT, PSYCHOEDUCATION (12/28/17) GROUP HEAD BANQUET WAITER/WAITRESS FOR SUBSTANCE ABUSE, COGNITIVE BEHAVIORAL (12/28/17) GROUP PSYCHOTHERAPY (12/28/17) INDIV PSYCHOTHERAPY FOR SUBSTANCE ABUSE TREATMENT, SUPPORT (12/28/17) INDIV PSYCHOTHERAPY FOR SUBSTANCE ABUSE, COGNITIV BEHAVIORAL (12/28/17) INDIV PSYCHOTHERAPY FOR SUBSTANCE ABUSE, PSYCHOEDUCATION (12/28/17) INDIVIDUAL PSYCHOTHERAPY, COGNITIVE-BEHAVIORAL (12/28/17) INDIVIDUAL PSYCHOTHERAPY, SUPPORTIVE (12/28/17) MEDICATION MANAGEMENT (12/13/15) Family History: States: No Known Family Hx - Social History Hx Tobacco Use: Yes Hx Alcohol Use: Yes Hx Substance Use: Yes (ETOH, Heroin) - Immunization History Hx Tetanus Toxoid Vaccination: No Hx Influenza Vaccination: No Hx Pneumococcal Vaccination: No Review Of Systems Review Of Systems: ROS cannot be obtained secondary to pt's inabilty to answer questions. (intoxication) Physical Exam - Physical Exam Appears: Non-toxic, No Acute Distress Skin: Warm, Dry, No Diaphoretic, No Rash, No Jaundice Head: Atraumatic, Normacephalic Eye(s): bilateral: Normal Inspection Nose: Normal Lips: Normal Appearing Neck: Normal ROM Cardiovascular: Rhythm Regular, No Murmur Respiratory: Normal Breath Sounds, No Accessory Muscle Use Extremity: Normal ROM, No Deformity Neurological/Psych: Other (intoxicated, no focal deficit) ED Course And Treatment O2 Sat by Pulse Oximetry: 95 Disposition - Disposition Referrals: [facility] [Outside] at [facility] [Outside] Disposition: HOME/ ROUTINE Disposition Time: 15:30 Condition: IMPROVED Additional Instructions: SHRAVAN KEMP, thank you for letting us take care of you today. The emergency medical care you received today was directed at your acute symptoms. If you were prescribed any medication, please fill it and take as directed. It may take several days for your symptoms to resolve. Return to the Emergency Department if your symptoms worsen, do not improve, or if you have any other pro blems. Please contact your doctor or call one of the physicians/clinics you have been referred to that are listed on the Patient Visit Information form that is included in your discharge packet. Bring any paperwork you were given at discharge with you along with any medications you are taking to your follow up visit. Our treatment cannot replace ongoing medical care by a primary care provider outside of the emergency department. Thank you for allowing the [facility] team to be part of your care today. Try to cut down on the amount of alcohol you drink daily. Follow up with your primary care doctor or the clinic this week for re- evaluation and further management. Instructions: Alcohol Abuse and Alcoholism (DC) Forms: [employer] (Nigerian) - Clinical Impression Clinical Impression: Alcohol abuse - Scribe Statement The provider has reviewed the documentation as recorded by the Scribe (Enoc Trevizo) All medical record entries made by the Scribe were at my direction and personally dictated by me. I have reviewed the chart and agree that the record accurately reflects my personal performance of the history, physical exam, medical decision making, and the department course for this patient. I have also personally directed, reviewed, and agree with the discharge instructions and disposition.
== END 2018-05-04 19:05 | disposition home or self-care (01) ==
LOC: C.ER 12:38
DX: F10.10 Alcohol abuse, uncomplicated (principal)

== ENCOUNTER 2018-05-07 14:39 | Emergency (ER) | payer OTHER ==
[2018-05-07 14:39] VITALS: BMI 30.2
[2018-05-07 14:56] VITALS: RESP 16
--- NOTE | 2018-05-07 15:33 | C.PDOC ---
History Of Present Illness 48-year-old male, presents to the emergency department, brought in by EMS for public intoxication. Patient was found intoxicated at [facility]. No complaints at this time. Time Seen by Provider: 05/07/18 14:52 Chief Complaint (Nursing): Substance Abuse History Per: EMS History/Exam Limitations: intoxication Past Medical History Reviewed: Historical Data, Nursing Documentation, Vital Signs Vital Signs: Last Vital Signs Temp 97.7 F 05/07/18 14:55 Pulse 75 05/07/18 14:55 Resp 16 05/07/18 14:55 BP 128/84 05/07/18 14:55 Pulse Ox 97 05/07/18 14:55 - Medical History PMH: Asthma, Depression Denies: Diabetes, Hepatitis, HIV, HTN, Chronic Kidney Disease, Seizures, Sexu ally Transmitted Disease - [facility] Procedures DETOXIFICATION SERVICES FOR SUBSTANCE ABUSE TREATMENT (01/11/18) GROUP STRATEGIC PLANNING MANAGER FOR SUBSTANCE ABUSE TREATMENT, PSYCHOEDUCATION (12/28/17) GROUP STRATEGIC PLANNING MANAGER FOR SUBSTANCE ABUSE, COGNITIVE BEHAVIORAL (12/28/17) GROUP PSYCHOTHERAPY (12/28/17) INDIV PSYCHOTHERAPY FOR SUBSTANCE ABUSE TREATMENT, SUPPORT (12/28/17) INDIV PSYCHOTHERAPY FOR SUBSTANCE ABUSE, COGNITIV BEHAVIORAL (12/28/17) INDIV PSYCHOTHERAPY FOR SUBSTANCE ABUSE, PSYCHOEDUCATION (12/28/17) INDIVIDUAL PSYCHOTHERAPY, COGNITIVE-BEHAVIORAL (12/28/17) INDIVIDUAL PSYCHOTHERAPY, SUPPORTIVE (12/28/17) MEDICATION MANAGEMENT (12/13/15) Family History: States: No Known Family Hx - Social History Hx Tobacco Use: Yes Hx Alcohol Use: Yes Hx Substance Use: Yes (ETOH, Heroin) - Immunization History Hx Tetanus Toxoid Vaccination: No Hx Influenza Vaccination: No Hx Pneumococcal Vaccination: No Review Of Systems Review Of Systems: ROS cannot be obtained secondary to pt's inabilty to answer questions. (intoxicated) Physical Exam - Physical Exam Appears: Non-toxic, No Acute Distress, Other (Responsive to verbal stimuli) Skin: Warm, Dry, No Rash Head: Atraumatic Eye(s): bilateral: Normal Inspection Nose: Normal Oral Mucosa: Moist Lips: Normal Appearing Neck: Normal ROM Cardiovascular: Rhythm Regular, No Murmur Respiratory: Normal Breath Sounds, No Accessory Muscle Use Gastrointestinal/Abdominal: Soft, No Tenderness Back: Normal Inspection Extremity: Normal ROM, No Deformity ED Course And Treatment O2 Sat by Pulse Oximetry: 97 Pulse Ox Interpretation: Normal (RA) Medical Decision Making Medical Decision Making: Patient observed in the ED. Became progressively more awake and alert. On discharge he was able to ambulate without difficulty, and tolerated PO. Disposition - Disposition Disposition: HOME/ ROUTINE Disposition Time: 19:39 Condition: FAIR Additional Instructions: SHRAVAN KEMP, thank you for letting us take care of you today. Your provider was Veena Vaughan MD and you were treated for SUBSTANCE ABUSE. The emergency medical care you received today was directed at your acute symptoms. If you were prescribed any medication, please fill it and take as directed. It may take several days for your symptoms to resolve. Return to the Emergency Department if your symptoms worsen, do not improve, or if you have any other problems. Please contact your doctor or call one of the physicians/clinics you have been referred to that are listed on the Patient Visit Information form that is i ncluded in your discharge packet. Bring any paperwork you were given at discharge with you along with any medications you are taking to your follow up visit. Our treatment cannot replace ongoing medical care by a primary care provider outside of the emergency department. Thank you for allowing the [facility] team to be part of your care today. If you had an X-Ray or CT scan: A Radiologist will review the ED reading if any change in treatment is needed we will contact you. If you had a blood, urine, or wound culture: It will take several days for the results, if any change in treatment is needed we will contact you. If you had an STI test: It will take 48 hours for the results. Please call after 1 week if you have not heard back. Instructions: Alcohol Abuse and Alcoholism (DC) Forms: [employer] (Mohawk) - Clinical Impression Clinical Impression: Alcohol abuse, Alcohol intoxication - Scribe Statement The provider has reviewed the documentation as recorded by the Scribe (Enoc Quintero) All medical record entries made by the Scribe were at my direction and personally dictated by me. I have reviewed the chart and agree that the record accurately reflects my personal performance of the history, physical exam, medical decision making, and the department course for this patient. I have also personally directed, reviewed, and agree with the discharge instructions and disposition.
[2018-05-07 19:55] VITALS: BP 125/82; PULSE 74; TEMP 97.8; O2SAT 98
== END 2018-05-07 19:53 | disposition home or self-care (01) ==
LOC: C.ER 14:39
DX: F10.129 Alcohol abuse with intoxication, unspecified (principal)

== ENCOUNTER 2018-11-13 | Inpatient (IN) | payer OTHER | END 2018-11-23 01:15 | disposition home or self-care (01) | DRG 772 | PROVIDERS: ADMIT Psychiatry & Neurology Psychiatry | PROC: HZ2ZZZZ Detoxification Services for Substance Abuse Treatment (ICD-10-PCS; principal; 2018-11-13) | PROC: HZ42ZZZ Group Counseling for Substance Abuse Treatment, Cognitive-Behavioral (ICD-10-PCS; 2018-11-13) | PROC: HZ52ZZZ Individual Psychotherapy for Substance Abuse Treatment, Cognitive-Behavioral (ICD-10-PCS; 2018-11-13) | PROC: HZ59ZZZ Individual Psychotherapy for Substance Abuse Treatment, Supportive (ICD-10-PCS; 2018-11-13) | PROC: HZ56ZZZ Individual Psychotherapy for Substance Abuse Treatment, Psychoeducation (ICD-10-PCS; 2018-11-13) | PROC: HZ46ZZZ Group Counseling for Substance Abuse Treatment, Psychoeducation (ICD-10-PCS; 2018-11-13) | PROC: GZHZZZZ Group Psychotherapy (ICD-10-PCS; 2018-11-13) | PROC: GZ58ZZZ Individual Psychotherapy, Cognitive-Behavioral (ICD-10-PCS; 2018-11-13) | PROC: GZ56ZZZ Individual Psychotherapy, Supportive (ICD-10-PCS; 2018-11-13) ==